=== PATIENT | male | born 1935 | race Caucasian/White ===

== ENCOUNTER 2023-10-21 14:28 | Inpatient (IN) | payer OTHER, SELFPAY ==
[2023-10-21] VITALS (19 sets, daily range): BP systolic 129–166; BP diastolic 59–109; BMI 26.1; BMI 25.7
--- NOTE | 2023-10-21 12:05 | EDRN ---
Dr. Wodoward in to see pt at this time.
--- NOTE | 2023-10-21 12:08 | ED.GENMED ---
History of Present Illness
General
Chief Complaint: Fall
Source: patient
Exam Limitations: none
Time Seen by Provider: 10/21/23 11:34
Nursing documentation reviewed up to this point in time: agreed with
Travel History
Have you had any contact with someone who has COVID-19?: No
Do you have any symptoms of coronavirus? Fever > 100 degrees, chills, cough, shortness of breath, sore throat, loss of taste or smell, muscle aches, or headache?: No
History of Present Illness
History of Present Illness:
88-year-old male prostate cancer renal insufficiency, cholesterolemia on Plavix, felt nauseous few days ago vomited's been unsteady when he walks for some time today had trouble putting his cane down fell onto his buttock and low back struck his
head not eating or drinking much recently, no fevers,
Past History
Past History
ED Past Medical History: Arrthythmia (Atrial fibrillation), CVA and HTN
ED Past Surgical History: Tonsilectomy and Other
Social History
Tobacco: Non-smoker
Alcohol: None
Drug: None
Personal:
Living: assisted living
Employment: Retired
Family History
Family History: Other
Review of Systems
Review of Systems
All Other Systems: Not applicable
Constitutional: Reports fatigue; Denies fever
EENT: Reports no symptoms
Respiratory: Reports no symptoms
ABD/GI: Reports nausea and vomiting (Few days ago)
: Reports no symptoms
Musculoskeletal: Reports back pain
Skin: Reports no symptoms
Neurological: Reports weakness
Endocrine: Reports no symptoms
Phy Exam
Physical Exam
Physical Exam:
Physical Exam
General: Pleasant chronically ill-appearing male normal mental status
Neck: Dry lips
Heart: Rate
Lungs: no acute respiratory distress. clear bilaterally
Abdomen: Not tender
Neuro: alert and oriented. Globally weak moves all extremities
Skin: no rash
Psychiatric: cooperative
Extremities: no edema.
Course
Orders/Labs/Results
Orders:
Orders
10/21/23 12:06
Cardiac Monitoring- Treatment ONCE
Urinalysis Reflex To Culture Urgent
0.9% Sodium Chloride 1000 ml [Nss] 1,000 ml IV BOLUS
Acetaminophen [Tylenol] 650 mg PO NOW STA
10/21/23 12:07
Electrocardiogram (*1) Urgent
Reason for Study: Other
Other Reason for Exam: trauma
CT Cervical Spine W/o Iv Contr Urgent
Comment:
Reason For Exam: fall
CT Head W/o Iv Contrast Urgent
Comment:
Reason For Exam: fall
EKG- Treatment ONCE
10/21/23 12:14
Lumbar Spine, 2 or 3 View [CR Lumbar Spine 2 Or 3 Views] Urgent
Comment:
Reason For Exam: fall
10/21/23 12:19
Complete Blood Count/With Diff Urgent
Comprehensive Metabolic Panel Urgent
10/21/23 13:03
CT Abd/pel Without Iv Or Oral Stat
Comment:
Reason For Exam: arf
10/21/23 13:07
Arellano Placement- Treatment ONCE
Reason for insertion: Acute Retention
10/21/23 13:15
Sterile Water For Inj [Sterile Water For Injection 1000 ml] 1,000 ml Sodium Bicarbonate 150 meq IV 200 mls/hr
Abnormal Lab Results
10/21/23
12:19
RBC 3.00 L 10^6/uL
(4.70-6.10)
Hgb 10.5 L g/dL
(13.0-18.0)
Hct 30.0 L %
(39.0-52.0)
MCV 100.0 H fL
(80.0-94.0)
MCH 35.0 H pg
(27.0-31.0)
Abs Immat Gran (auto) 0.1 H 10^3/uL
(0-0.05)
Absolute Neuts (auto) 9.3 H 10^3/uL
(1.4-6.5)
Absolute Lymphs (auto) 0.5 L 10^3/uL
(1.2-3.4)
Immature Gran % 0.8 H %
(0-0.5)
Neutrophils % 88.3 H %
(42.2-75.2)
Lymphocytes % 4.5 L %
(20.5-51.1)
Sodium 134 L mmol/L
(135-145)
Potassium 6.3 H* mmol/L
(3.5-5.1)
Carbon Dioxide 12 L* mmol/L
(22-30)
BUN 96 H mg/dl
(9-20)
Creatinine 9.5 H* mg/dL
(0.7-1.3)
Alkaline Phosphatase 158 H U/L
(38-126)
Total Protein 5.3 L g/dl
(6.3-8.2)
Albumin 2.9 L g/dl
(3.5-5.0)
10/21/23 12:19
10/21/23 12:19
Vital Signs
Initial and Last Documented VS:
Initial Vital Signs
Temp Pulse Resp BP Pulse Ox
97.5 F 71 16 150/82 99
10/21/23 11:26 10/21/23 11:26 10/21/23 11:26 10/21/23 11:26 10/21/23 11:26
Last Documented Vital Signs
Temp Pulse Resp BP Pulse Ox
97.5 F 65 16 155/82 99
10/21/23 11:26 10/21/23 13:00 10/21/23 13:00 10/21/23 13:00 10/21/23 13:00
MDM/Problems Addressed
Differential Diagnosis Includes:
Dehydration head or neck trauma arrhythmia UTI does take Farxiga
MDM/Problems Addressed:
Weakness fall
Chronic conditions affecting care:
Renal sufficiency prostate cancer
Acute Exacerbation and/or Progression of Chronic Illness:
No insufficiency prostate cancer
*Radiology
Radiology exam reviewed: preliminary read by ED provider
*Pulse Oximetry
Patient hypoxic: no
*Inspector Metal Can Interpretation
Rate: normal
Interpretation: normal
Heart Rate: 78
Rhythm: sinus
*Critical Care Note
Total Time (30-74mins, 75-104mins- exclusive of procedures): 30
Update Note
Update Note:
Update, labs noted prior records noted will check CT abdomen pelvis without contrast specialty consultations have been requested will require admission
ED Attending Note
-
Portions of this chart may have been created with voice recognition software.� Occasional wrong word or��sound alike� substitutions may have occurred due to the inherent limitations of voice recognition software.
Discharge Plan
Departure
Patient Disposition: Admit
Date of Disposition: 10/21/23
Time of Disposition: 13:12
Admit to: Telemetry
Presentation/result/management discussed w/ accepting MD/DO: Hospitalist
Patient with high blood pressure during this ER visit?: Yes
Condition: Serious
Discharge Problem:
Acute renal failure (ARF)
Prescriptions:
No Action
[id number] serr [Osteo Bi-Flex (5-Loxin)] 1 EACH tablet
2 ea PO DAILY
atorvastatin 40 mg Tablet
40 mg PO QPM
tamsulosin 0.4 mg Capsule
0.8 mg PO DAILY
PreserVision AREDS-2 250-90-40-1 mg Capsule
1 tab PO BID
Farxiga 10 mg Tablet
10 mg PO DAILY
clopidogrel 75 MG tablet
75 mg PO QPM
Referrals:
Kimberley Cantrell MD [Family Provider] -
Interventions
Interventions:
*Risk Screen - Suicide Last Done: 10/21/23 11:26
*General Assessment Last Done: 10/21/23 11:26
*Neglect/Abuse Screening Last Done: 10/21/23 11:26
ED- Fall Risk Assessment Last Done: 10/21/23 11:26
*ED COVID-19 Vaccine History Last Done: 10/21/23 11:26
ED-Musculoskeletal Assessment Last Done: 10/21/23 12:23
ED- Neurological Assessment Last Done: 10/21/23 12:23
ED-Skin Assessment Last Done: 10/21/23 12:23
[2023-10-21 12:39] LABS: % Basophils 0.1 % (0-2); % Eosinophils 0.2 % (0-6); % Immature Granulocytes 0.8 % (0-0.5); % Lymphocytes 4.5 % (20.5-51.1); % Monocytes 6.1 % (1.7-9.3); % Neutrophils 88.3 % (42.2-75.2); Absolute Immature Granulocytes 0.1 10^3/uL (0-0.05); Absolute Lymphocytes 0.5 10^3/uL (1.2-3.4); Absolute Monocytes 0.6 10^3/uL (0.1-0.6); Absolute Neutrophils 9.3 10^3/uL (1.4-6.5); Hemoglobin 10.5 g/dL (13.0-18.0); Mean Platelet Volume 9.7 fL (7.4-10.4); Nucleated Red Blood Cells % 0 % (-); Platelet Count 155 10^3/uL (130-400); Red Cell Dist. Width 13.3 % (11.5-14.5); White Blood Cell Count 10.5 10^3/uL (4.8-10.8)
[2023-10-21 13:03] LABS: ALT (SGPT) 20 U/L (0-50); AST (SGOT) 21 U/L (17-59); Albumin 2.9 g/dl (3.5-5.0); Alkaline Phosphatase 158 U/L (38-126); Blood Urea Nitrogen 96 mg/dl (9-20); Calcium 9.2 mg/dl (8.4-10.2); Carbon Dioxide 12 mmol/L (22-30); Chloride 104 mmol/L (98-107); Estimated Creatinine Clearance 6 ml/min; Glucose 85 mg/dl (70-99); Potassium 6.3 mmol/L (3.5-5.1); Sodium 134 mmol/L (135-145); Total Protein 5.3 g/dl (6.3-8.2); eGFR 4.86
--- NOTE | 2023-10-21 13:31 | W.CON.NEPH ---
Consultation
-
Date/Time Consultation Requested: 10/21/2023 1 PM
Date/Time Consultation Performed: 10/21/2023 1:30 PM
Requesting Provider: Dr. Woodward
Performing Provider: Dr. Conti
Reason for Consultation: Acute kidney injury
Medical History
-
Chief Complaint: Acute kidney injury
History of Present Illness:
88-year-old gentleman with known atrophic right kidney and thus a essential solitary left kidney with baseline creatinine around 1.7 up to 2.0 representing CKD stage IV. He has known history of calcium oxalate nephrolithiasis with his last
obstructive episode back in 2021. He has hyperlipidemia controlled on statin therapy. He remains on Farxiga for his CKD. He typically has lower blood pressures and given his solitary kidney status is not on RAAS inhibition. In the last few days
he has not been feeling well. He has lost his appetite. He became nauseous. He had no vomiting or diarrhea by his report. His oral intake was poor and his fluid intake was also poor. His urine output decreased. He became lightheaded this
morning and fell in the bathroom. He came to the emergency room he was noted to have a creatinine of greater than 9 with a potassium of 6.3
Past Medical History
1. Hypertension.
2. BPH.
3. Osteoarthritis.
4. Glaucoma.
5. History of stroke.
6. TIA.
7. CKD 4.
8. Nephrolithiasis.
9. Calcium oxalate.
10.Cholelithiasis.
11.Atrophic right kidney.
12.Tonsillectomy.
13.Hernia repair.
14.Cataract extraction.
15.Right ureteroscopy.
16.Laser lithotripsy.
Social History
Tobacco: Former Smoker
Alcohol: Occasional
Family History
no CKD
Family History: CAD
Allergies / Home Medications
Allergy/AdvReac Type Severity Reaction Status Date / Time
No Known Drug Allergies Allergy Unknown Verified 10/21/23 11:25
Medication Instructions Recorded Confirmed Type
glucosamine [id number] 2 ea PO DAILY Supplement 09/07/18 05/10/22 History
atul 1,500 mg-400 unit-100 mg
tablet (Osteo Bi-Flex (5-Loxin))
atorvastatin 40 mg tablet 40 mg PO QPM High cholesterol 04/22/22 05/10/22 History
clopidogrel 75 mg tablet 75 mg PO QPM Blood clot 04/22/22 05/10/22 History
prevention/tx
dapagliflozin propanediol 10 mg 10 mg PO DAILY Kidney Disease 04/22/22 05/10/22 History
tablet (Farxiga)
tamsulosin 0.4 mg capsule 0.8 mg PO DAILY Urinary issue 04/22/22 05/10/22 History
vit C 250 mg-vit E 90 mg-zinc 40 1 tab PO BID Supplement 04/22/22 05/10/22 History
mg-copper 1 [id number]
capsule (PreserVision AREDS-2)
Review of Systems
-
No chest pain or shortness of breath. Poor appetite, nausea. No vomiting or diarrhea however. Decreased urine output. Lightheadedness in the last day with near syncope this morning. The remainder of the complete review of systems was negative
Physical Exam
Vital Signs
Vital Signs
Temp Pulse Resp BP Pulse Ox
97.5 F 65 16 155/82 99
10/21/23 11:26 10/21/23 13:00 10/21/23 13:00 10/21/23 13:00 10/21/23 13:00
Lab Results
WBC 10.5 10^3/uL (4.8-10.8) 10/21/23 12:19
RBC 3.00 10^6/uL (4.70-6.10) L 10/21/23 12:19
Hgb 10.5 g/dL (13.0-18.0) L 10/21/23 12:19
Hct 30.0 % (39.0-52.0) L 10/21/23 12:19
Plt Count 155 10^3/uL (130-400) 10/21/23 12:19
Sodium 134 mmol/L (135-145) L 10/21/23 12:19
Potassium 6.3 mmol/L (3.5-5.1) H* 10/21/23 12:19
Chloride 104 mmol/L (98-107) 10/21/23 12:19
Carbon Dioxide 12 mmol/L (22-30) L* 10/21/23 12:19
BUN 96 mg/dl (9-20) H 10/21/23 12:19
Creatinine 9.5 mg/dL (0.7-1.3) H* 10/21/23 12:19
eGFR 4.86 10/21/23 12:19
Glucose 85 mg/dl (70-99) 10/21/23 12:19
Calcium 9.2 mg/dl (8.4-10.2) 10/21/23 12:19
Albumin 2.9 g/dl (3.5-5.0) L 10/21/23 12:19
Assessment/Plan
-
Assessment:�
-CKD4 (2.0)
-VI
-metabolic acidosis
-azotemia
-hyperkalemia
-hyponatremia
-HTN
-CaOx nephrolithiasis hx
-atrophic right kidney
-obstructive left uretral stone
Plan:�
treat K medically
serial BMP
IVF bolus then bicarb IVF
OR when feasible for ureteral stent
Data Reviewed
-
CT Scan: Report Reviewed by me (CT of the head and cervical spine on 10/21/2023 shows no acute disease, )
Medical Tests (Nuc Med, Echo etc): Image Personally Visualized and interpreted (EKG on 10/21/2023 by my reading shows normal sinus rhythm first-degree AV block and left axis deviation)
Labs: Labs Reviewed by me
Old Records: Reviewed (Creatinine on 06/14/2023 was 1.75)
--- NOTE | 2023-10-21 13:37 | HPS.HSE ---
Family Physician
-
Family Physician: Kimberley Cantrell MD
Chief Complaint
-
Fall
History of Present Illness
Patient with h/o CKD, atrophic right kidney, left kidney with prior obstructing stone s/p left ureteroscopic laser lithotripsy and exchange of left double-J ureteral stent in 2021, h/o TIA on plavix presenting to ED after a fall and complaint of
back pain. He felt nauseous few days ago vomited's been unsteady when he walks for some time today had trouble putting his cane down fell onto his buttock and low back struck his head. Reports reduced appetite not eating or drinking much recently.
Denies any hematuria or dysuria. Reports urinary frequency. Denies fevers. Denies OTC meds, NSAIDS. Denies any nephrotoxins. Non-anuric given recent episodes of uop however minimal po intake. Mechanical fall, denies LOC. Unclear if strike
head but did not hit head on the floor.
In ED hemodynamically stable and in no acute distress. ECG with 1st deg AVB (unchanged from prior save for abscence of PVCs). CBC unremarkable compared to prior. Chemistry notable for K of 6.3, Bicarb 12, BUN 96, CR 9.5. Temporizing measures,
urology and nephrology consults initiated in ED.
Medical History
Past Medical History
Past Medical History: Reports CVA and Renal Failure
Additional Past Medical History:
nephrolithiasis s/p stenting in the past
Past Surgical History: Reports Urological
Social History
Tobacco: Former Smoker
Alcohol: None
Drug: None
Personal:
Living: Alone
Employment: Retired
Family History
Family History: Not pertinent
Allergies / Home Medications
Allergies reflects when Allergies were last updated in [employer]
Home Medications with original date entered in [employer]
Allergy/Medication List:
Allergies
Allergy/AdvReac Type Severity Reaction Status Date / Time
No Known Drug Allergies Allergy Unknown Verified 10/21/23 11:25
Home Medications
glucosamine [id number] atul 1,500 mg-400 unit-100 mg tablet (Osteo Bi-Flex (5-Loxin)) 2 ea PO DAILY Supplement 09/07/18
atorvastatin 40 mg tablet 40 mg PO QPM High cholesterol 04/22/22
clopidogrel 75 mg tablet 75 mg PO QPM Blood clot prevention/tx 04/22/22
dapagliflozin propanediol 10 mg tablet (Farxiga) 10 mg PO DAILY Kidney Disease 04/22/22
tamsulosin 0.4 mg capsule 0.8 mg PO DAILY Urinary issue 04/22/22
vit C 250 mg-vit E 90 mg-zinc 40 mg-copper 1 [id number] capsule (PreserVision AREDS-2) 1 tab PO BID Supplement 04/22/22
acetaminophen 325 mg tablet (Tylenol) 650 mg PO Q4HPRN PRN mild pain 10/21/23
Review of Systems
-
History Source: Patient and Family
Constitutional: Reports Fatigue
EENT: Reports No Symptoms
Respiratory: Reports No Symptoms
Cardiac: Reports No Symptoms
Abdomen/GI: Reports Nausea and Vomiting
: Reports Frequency and Flank Pain
Musculoskeletal: Reports Joint Pain
Skin: Reports No Symptoms
Neurological: Reports No Symptoms
Endocrine: Reports No Symptoms
Hematologic/Lymphatic: Reports No Symptoms
Psych: Reports No Symptoms
Physical Exam
Vital Signs
Vital Signs
Temp Pulse Resp BP Pulse Ox
97.5 F 65 16 155/82 99
10/21/23 11:26 10/21/23 13:00 10/21/23 13:00 10/21/23 13:00 10/21/23 13:00
Physical Exam
General: Poor Appetite
HEENT: NormoCephalic, Anicteric and PERRLA
Respiratory: Clear
Cardiac: S1/S2 and Regular Rhythm
Breast: Deferred by me
GI: Soft, Non Tender, Non Distended and Normal Bowel Sounds
Rectal: Deferred by Provider
Genito-urinary: Deferred by me
Musculoskeletal: No Clubbing, No Cyanosis and No Edema
Skin: Warm
Neuro: AO x 3
Hematologic/Lymphatic: No Lymphadenopathy
Psych: Calm
Laboratory Results
-
10/21/23 12:19
10/21/23 12:19
Laboratory Results
Total Bilirubin 1.0 mg/dl (0.2-1.3) 10/21/23 12:19
AST 21 U/L (17-59) 10/21/23 12:19
ALT 20 U/L (0-50) 10/21/23 12:19
Alkaline Phosphatase 158 U/L (38-126) H 10/21/23 12:19
Data Reviewed
-
Diagnostic Radiology: Image Personally Visualized and interpreted and Report Reviewed by me
CT Scan: Report Reviewed by me
Medical Tests (Nuc Med, Echo, EKG etc): Image Personally Visualized and interpreted
Lab Data: Labs Reviewed by me
Old Records: Reviewed
Impression/Plan
-
IMPRESSION:
88 y.o male with history of atrophic right kidney and left uronephrolithiasis complicaed by severe VI in the past, CKD with baseline cr around 2 presenting with a few days of nausea, vomiting, weakness, fall and backpain. Endorsed urinary
frequency without dysuria, hematuria or incontinence. No fevers or chills. Found to have recurrent left obstructive urolithiasis with hydronephrosis. Severe VI with hyperkalemia, acidemia and BUN/Cr of 96/9.5. Non-anuric.
PLAN:
VI - 2/2 to obstructing stone. Urology consulted with plan for stent placement if possible otherwise nephrostomy tube placement.
- admit to IMU
- npo for now
- hold plavix
- going to OR where urinary catheter and stent will be placed
- strict i/os
- hypovolemic, given acidemia will continue with bicarbonate containing fluids
- holding farxiga, atovastatin
- continue tamsulosin
- repeat labs q 8 hours and plan for possible HD in am.
Hyperkalemia - 2/2 to VI. K 6.3, no ECG changes. Temporized with calcium gluconate, insulin/dextrose in ED.
- continue daily lokelma
- IV bicarbonate
- low K diet starting in am if no additional procedures pending
- need HD if hyperkalemic despite measures but do not forsee immediate need
- nephrology consulted
Acidemia - 2/2 VI
- IV bicarb 150meq at 200ml/hr for now
DVT PPX - heparin sq
Patient is FULL CODE
--- NOTE | 2023-10-21 13:41 | EDRN ---
Dr. Conti in room w/pt at this time.
--- NOTE | 2023-10-21 13:45 | EDRN ---
Dr. Harper in room w/ pt at this time.
[2023-10-21] MEDS: DEXTROSE 50% SYRINGE 25 GRAMS IV (13:49)
[2023-10-21] MEDS: NOVOLIN R 5 UNITS IV (13:53)
[2023-10-21] MEDS: SODIUM BICARBONATE 50 MEQ IV (13:56)
[2023-10-21] MEDS: NSS 1000 IV (13:58)
--- NOTE | 2023-10-21 14:00 | EDRN ---
Dr. Phillips in room w/pt.
[2023-10-21] MEDS: LOKELMA 10 GRAM PO ×2 (14:05→19:22)
--- NOTE | 2023-10-21 14:05 | EDRN ---
Dr. Phillips said not to catheterize pt at this time so mendosa catheter is presently on hold.
--- NOTE | 2023-10-21 14:09 | CON.MD ---
Consultation - Medical
-
see dictated note
pt with prostate ca on med therapy
s/p right nephrectomy
hx of stones
required stent/ureteroscopy for obstructing stone with anuria and renal failure in 2021
now with no urine output/feeling weak
ARF and ct showing large mid ureteral stone
reviewed with nephrology/med team and anesthesia
if K can be stabilized- to OR for stent
use of plavix precludes per at this time
high risk nature of procedure including inability to place stent and hematuria reviewed with pt and son and daughter (by phone)
to OR when electrolytes stabilized
[2023-10-21] MEDS: CALCIUM GLUCONATE 100 IV (14:13)
[2023-10-21 14:36] LABS: Creatine Phosphokinase 75 U/L (55-170)
[2023-10-21] MEDS: SODIUM BICARBONATE 1150 MEQ IV ×2 (15:02→20:55)
[2023-10-21 15:08] LABS: Blood Urea Nitrogen 93 mg/dl (9-20); Calcium 8.7 mg/dl (8.4-10.2); Carbon Dioxide 13 mmol/L (22-30); Chloride 107 mmol/L (98-107); Estimated Creatinine Clearance 6 ml/min; Glucose 127 mg/dl (70-99); Potassium 5.9 mmol/L (3.5-5.1); Sodium 132 mmol/L (135-145); eGFR 4.92
--- NOTE | 2023-10-21 15:53 | EDRN ---
Report given to Emi RICCI in OR. Pt to go to OR at this time.
[2023-10-21] MEDS: ANCEF 10 IV (16:25)
--- NOTE | 2023-10-21 16:50 | W.IMMPOSTOP ---
Surgical Immed Post Op Note
-
Primary Surgeon:
magui
Assisting Surgeon:
Pre-op Diagnosis:
left ureteral stone/obstruction of solitary kindey, arf
Post-op Diagnosis:
same
Procedure Performed:
cysto/left retrograde, left ureteral stent
Anesthesia Type:
gen
Specimen / Cultures:
none
Estimated Blood Loss:
2cc
Complications:
none
Operative Findings:
left ureteral stent placed
[address] mendosa placed- no cbi at this time
to pacu then IMU
[2023-10-21 17:28] LABS: Urine Albumin 1+ (Neg - Trace); Urine Bilirubin Negative (Negative); Urine Character Slightly Cloudy (Clear); Urine Color Red; Urine Glucose 1+ (Negative); Urine Ketone Trace (Negative); Urine Leukocyte 1+ (Negative); Urine Nitrite Negative (Negative); Urine Occult Blood 4+ (Negative); Urine Specific Gravity 1.005 (<1.030); Urine Urobilinogen Negative (Neg - 1+)
[2023-10-21 17:45] LABS: Urine Red Blood Cell >100 /HPF (0-2); Urine Squamous Cell 0-2 /LPF (Few)
--- NOTE | 2023-10-21 20:00 | PTCARENOTE ---
Pt received at beginning of shift from PACU s/p left ureteral stent placement with mendosa. AAOx3. Drowsy but arousable. Son at bedside. Denies pain or discomfort. Mendosa draining slightly pink colored urine. IVF's infusing as ordered. VSS. Afebrile.
HR 40's-70's. SB/SR on CM. Able to answer admission questions. SCD's on and working. Wounds as documented. Rest of assessment as documented. Maintained on Q2hr turns. Oriented to room and surroundings. Call kincaid within reach. Will continue to
monitor.
[2023-10-21 20:39] LABS: Blood Urea Nitrogen 89 mg/dl (9-20); Carbon Dioxide 14 mmol/L (22-30); Chloride 105 mmol/L (98-107); Estimated Creatinine Clearance 6 ml/min; Glucose 86 mg/dl (70-99); Potassium 5.6 mmol/L (3.5-5.1); Sodium 135 mmol/L (135-145); eGFR 5.11
[2023-10-21] MEDS: TYLENOL 650 MG PO (20:46)
--- NOTE | 2023-10-21 21:30 | PTCARENOTE ---
Daughter Destinee called floor to informed this RN that pt's had tonight. Asking for guidance as to what she should do. Agreement between this RN and daughter Destinee that she would come up and we would sit with pt together as she told
him. Destinee arrived to floor and when she entered pt's room pt asked her 'how is mother doing?' Destinee explained to pt that she had tonight. Emotional support provided to both Destinee and pt. Pt was calm and was speaking with his daughter so
this RN left room so as to offer them privacy. Both daughter and pt appreciative of care and compassion offered to both. Daughter left for the night and pt stated he was going to try to sleep. Will continue to monitor.
[2023-10-22] VITALS (13 sets, daily range): BP systolic 104–156; BP diastolic 43–96; PULSE 105; O2SAT 97; BMI 25.7
[2023-10-22] MEDS: SODIUM BICARBONATE 1150 MEQ IV ×4 (01:51→18:27)
[2023-10-22] MEDS: CHLORASEPTIC/SORE THROAT SPRAY 1 SPRAY PO ×3 (01:52→06:09)
--- NOTE | 2023-10-22 02:13 | PTCARENOTE ---
Pt c/o throat pain. Received Tylenol earlier with some relief. Requesting different med. 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 Pt received spray and had immediate relief with throat pain. Currently resting comfortably.
[2023-10-22 04:03] LABS: Hematocrit 31.5 % (39.0-52.0); Hemoglobin 11.1 g/dL (13.0-18.0); Mean Corp Hgb Conc. 35.2 g/dL (33.0-37.0); Mean Corpuscular Hgb 34.8 pg (27.0-31.0); Mean Corpuscular Volume 98.7 fL (80.0-94.0); Mean Platelet Volume 9.6 fL (7.4-10.4); Platelet Count 180 10^3/uL (130-400); Red Blood Cell Count 3.19 10^6/uL (4.70-6.10); Red Cell Dist. Width 13.4 % (11.5-14.5); White Blood Cell Count 7.8 10^3/uL (4.8-10.8)
[2023-10-22 04:05] LABS: INR 1.14; PT 14.4 Sec (11.4-14.6)
[2023-10-22 04:06] LABS: APTT 39.3 Sec (23.4-35.0)
[2023-10-22 04:17] LABS: Blood Urea Nitrogen 92 mg/dl (9-20); Calcium 8.9 mg/dl (8.4-10.2); Carbon Dioxide 16 mmol/L (22-30); Chloride 99 mmol/L (98-107); Estimated Creatinine Clearance 6 ml/min; Glucose 86 mg/dl (70-99); Magnesium 2.3 mg/dl (1.6-2.3); Potassium 5.5 mmol/L (3.5-5.1); Sodium 138 mmol/L (135-145); eGFR 5.63
--- NOTE | 2023-10-22 04:25 | PTCARENOTE ---
Pt obviously unable to sleep overnight given the news his last night. Emotional at times. States 'I just have things on my mind.' He remains very pleasant. This am he is showing signs of forgetfulness with visual hallucinations. He
stated he see's 'videos of his family on the TV.' The TV is off. There are reflections on the TV screen of the VS monitor with lights off. However he says what he sees are videos of his family. VSS. Afebrile. SR on CM rate 70's. Total UO for shift
2250ml of slighly pink urine, not clots noted. Pt continues to deny pain or discomfort. Call kincaid remains within reach. Will continue to monitor.
[2023-10-22] MEDS: LOKELMA 10 GRAM PO ×3 (06:08→18:28)
--- NOTE | 2023-10-22 07:08 | W.PN.URO.CBU ---
Today's Communication / Plan
-
excellent UO but unfortunately not much improvement in cr level yet
continue mendosa
would hold plavix, asa is ok
await ucx
will follow
Assessment / Plan
-
hx of prostate cancer
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
ARF
s/p left ureteral stent
Diagnosis
-
Date of Service: October 22, 2023
-
Patient Diagnosis:
stone obstructing solitary kidney s/p stent /
ARF
prostate cancer
Subjective
-
pt with some confusion
urine clear- excellent output
not much improvement in cr level
Objective
-
Vital Signs
Temp Pulse Resp BP Pulse Ox
98.1 F 106 27 135/85 98
10/22/23 03:26 10/22/23 06:00 10/22/23 06:00 10/22/23 06:00 10/22/23 06:00
Intake and Output
10/21/23 10/22/23 10/23/23
06:59 06:59 06:59
Intake Total 2725 / 2725
Output Total 2800 / 2800
Balance -75 / -75
Intake:
Oral fluids 100 / 100
IV fluids (Total) 2625 / 2625
normosol 50 / 50
sterile water with sodiumbicarb 175 / 175
Output:
Urine, Mendosa 2800 / 2800
Laboratory Results
10/22/23 03:36
10/22/23 03:36
Review of Systems
-
Constitutional: Fatigue
Respiratory: No Symptoms
Cardiac: No Symptoms
Abdomen/GI: No Symptoms
Physical Exam
-
General - ill appearing, no acute distress
Abdomen - soft, non-tender
Genitalia - mendosa in place
[2023-10-22] MEDS: FLOMAX 0.800000000000000044 MG PO (08:02)
--- NOTE | 2023-10-22 09:32 | W.PN.HOSP.TC ---
Today's Communication/Plan
-
see outlined plan
Assessment / Plan
Assessment / Plan
Assessment:
VI on CKD stage 4
Acute metabolic acidosis
Acute Hyperkalemia
Acute hyponatremia
Hx of solitary kidney
- related to obstructive L ureteral stone s/p stenting 10/20. Continue Arellano and monitor I/Os per Urology. Follow urine culture.
- K+ was treated medically in ER with Calcium gluconate, insulin/dextrose; repeat is 5.5. continue low K diet.
- continue bicarbonate IVF per Nephrology
- continue Flomax
- hold Farxiga
Essential HTN
HLD - hold statin
Social: patients 10/21/23, her is tentatively planned 10/29.
DVT ppx: SC heparin (noted on Plavix for clot prevention at home, no record of ASCVD)
Code: Full
Anticipated Discharge: > 48 hours
Subjective/Interval History
-
Date of Service: October 22, 2023
urine output recorded as 2800 cc
feels well, no complaints
Cr at 8.4
Objective Data
-
Labs:
Laboratory Results
10/22/23
03:36
WBC 7.8
Hgb 11.1 L
Hct 31.5 L
Plt Count 180
PT 14.4
INR 1.14
APTT 39.3 H
Sodium 138
Potassium 5.5 H
Chloride 99
Carbon Dioxide 16 L
BUN 92 H
Creatinine 8.4 H*
Glucose 86
Calcium 8.9
Vital Signs:
Vital Signs
Temp Pulse Resp BP Pulse Ox
98.5 F 106 27 135/85 98
10/22/23 07:50 10/22/23 06:00 10/22/23 06:00 10/22/23 06:00 10/22/23 06:00
I&O
10/21/23 10/22/23 10/23/23
06:59 06:59 06:59
Intake Total 2725 / 2725
Output Total 2800 / 2800
Balance -75 / -75
Physical Exam
-
General: No Apparent Distress
HEENT: Normocephalic and Atraumatic
Respiratory: Negative Wheezes or Rales
Cardiac: Regular Rhythm and S1/S2
GI: Soft and Nontender
Genito-urinary: No Costovertebral Tender and Arellano
Musculoskeletal: No Edema
Psych: Calm
Data Reviewed
-
Total Time Spent with Patient (in minutes): 45
Labs: Labs Reviewed by me
[2023-10-22 11:19] LABS: Urine Albumin Trace (Neg - Trace); Urine Bilirubin Negative (Negative); Urine Character Slightly Cloudy (Clear); Urine Color Yellow; Urine Glucose Trace (Negative); Urine Ketone 3+ (Negative); Urine Leukocyte 1+ (Negative); Urine Nitrite Negative (Negative); Urine Occult Blood 4+ (Negative); Urine Urobilinogen Negative (Neg - 1+)
--- NOTE | 2023-10-22 11:20 | W.PN.NEPH.PH ---
Today's Communication / Plan
-
IVF
Assessment/Plan
-
Assessment:�
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
-VI
-metabolic acidosis
-azotemia
-hyperkalemia
-hyponatremia
-HTN
-CaOx nephrolithiasis hx
-atrophic right kidney
-obstructive left uretral stone
Plan:�
lokelma today still
serial BMP
IVF with bicarb
I think he will escape dialysis
-
-
Date of Service: October 22, 2023
CC / HPI / ROS
-
Chief Complaint:
VI
History of Present Illness:
VI/Cr down to 8.4
K down to 5.5
acidosis improving 16
s/p left ureteral stent
Review of Systems:
no CP/SOB
nonoliguric
Labs
-
Labs:
WBC 7.8 10^3/uL (4.8-10.8) 10/22/23 03:36
RBC 3.19 10^6/uL (4.70-6.10) L 10/22/23 03:36
Hgb 11.1 g/dL (13.0-18.0) L 10/22/23 03:36
Hct 31.5 % (39.0-52.0) L 10/22/23 03:36
Plt Count 180 10^3/uL (130-400) 10/22/23 03:36
Sodium 138 mmol/L (135-145) 10/22/23 03:36
Potassium 5.5 mmol/L (3.5-5.1) H 10/22/23 03:36
Chloride 99 mmol/L (98-107) 10/22/23 03:36
Carbon Dioxide 16 mmol/L (22-30) L 10/22/23 03:36
BUN 92 mg/dl (9-20) H 10/22/23 03:36
Creatinine 8.4 mg/dL (0.7-1.3) H* 10/22/23 03:36
eGFR 5.63 10/22/23 03:36
Glucose 86 mg/dl (70-99) 10/22/23 03:36
Calcium 8.9 mg/dl (8.4-10.2) 10/22/23 03:36
Albumin 2.9 g/dl (3.5-5.0) L 10/21/23 12:19
Physical Exam
-
Vital Signs:
Vital Signs
Temp Pulse Resp BP Pulse Ox
98.5 F 106 27 135/85 98
10/22/23 07:50 10/22/23 06:00 10/22/23 06:00 10/22/23 06:00 10/22/23 06:00
Cardiovascular:: Regular rate and rhythm
Respiratory:: Bilateral: Coarse
Lung Excursion:: Normal
Abdomen:: Nontender and Soft
Bowel Sounds:: Normal
Extremity Edema:: None: Bilateral:
[2023-10-22 11:58] LABS: Urine Bacteria Few (Negative); Urine Red Blood Cell >100 /HPF (0-2); Urine Squamous Cell 0-2 /LPF (Few)
--- NOTE | 2023-10-22 13:06 | CM ---
manager copy reviewed patient's chart and met with patient, patient resides at '[facility]' at [facility], patient was independent with adl's and ambulation. Patient has a cane that he rarely uses but does not have a walker, the walkers in patient's
home belong to his spouse who recently , per patient his the day he was admitted. Patient drives. Patient was the caregiver for his . Patient has had a recent fall and recommendation are for skilled placement.
Skilled options reviewed and patient has selected [facility], but patient is reluctant to agree to skilled placement because he wants to make final burial arrangements for his spouse.
Pharmacy: [facility]
Plan; Patient would prefer to return to home and make final arrangements for spouse's , but did agree to a referral to [facility], referral sent to [facility].
[2023-10-22 15:53] LABS: Blood Urea Nitrogen 94 mg/dl (9-20); Calcium 8.2 mg/dl (8.4-10.2); Carbon Dioxide 27 mmol/L (22-30); Chloride 91 mmol/L (98-107); Estimated Creatinine Clearance 7 ml/min; Glucose 113 mg/dl (70-99); Sodium 135 mmol/L (135-145); eGFR 6.56
[2023-10-22] MEDS: TYLENOL 650 MG PO (20:55)
--- NOTE | 2023-10-22 21:18 | PTCARENOTE ---
AAOx3, NSR, VSS. Pt c/o mild headache, which he attributes to lack of sleep last night, PRN tylenol provided per OCT. SaO2 noted to be 88-89% on RA. Pt placed on 2L NC. Upon falling asleep, pt noted to desat into 70s with prompt return to 89%. O2
titrated to 6L NC with improvement to 95%. Periods of desat to 80s continue, but with prompt return to 95%. Pt mouth-breathing during sleep. RT Mckayla notified. Bed alarm in place for patient safety. Call kincaid placed within reach
[2023-10-23] VITALS (15 sets, daily range): BP systolic 126–169; BP diastolic 77–98; PULSE 74; O2SAT 93; BMI 25.9
[2023-10-23] MEDS: SODIUM BICARBONATE 1150 MEQ IV ×2 (00:32→06:22)
[2023-10-23 05:17] LABS: Hematocrit 28.9 % (39.0-52.0); Hemoglobin 10.1 g/dL (13.0-18.0); Mean Corp Hgb Conc. 34.9 g/dL (33.0-37.0); Mean Corpuscular Hgb 34.5 pg (27.0-31.0); Mean Corpuscular Volume 98.6 fL (80.0-94.0); Mean Platelet Volume 9.2 fL (7.4-10.4); Platelet Count 181 10^3/uL (130-400); Red Blood Cell Count 2.93 10^6/uL (4.70-6.10); Red Cell Dist. Width 13.5 % (11.5-14.5); White Blood Cell Count 8.3 10^3/uL (4.8-10.8)
[2023-10-23 05:54] LABS: Blood Urea Nitrogen 89 mg/dl (9-20); Calcium 7.6 mg/dl (8.4-10.2); Carbon Dioxide 36 mmol/L (22-30); Chloride 90 mmol/L (98-107); Estimated Creatinine Clearance 8 ml/min; Glucose 102 mg/dl (70-99); Potassium 3.4 mmol/L (3.5-5.1); Sodium 134 mmol/L (135-145); eGFR 7.39
--- NOTE | 2023-10-23 06:15 | W.PN.URO.CBU ---
Today's Communication / Plan
-
continue mendosa and stent- f/u ucx
Assessment / Plan
-
hx of prostate cancer
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
ARF
s/p left ureteral stent
slow improvement in cr
continue stent and mendosa
f/u ucx
asa ok- would hold plavix for now
continue mendosa until renal function normalized
will follow
Diagnosis
-
Date of Service: October 23, 2023
-
Patient Diagnosis:
stone obstructing solitary kidney s/p stent 3/
ARF
prostate cancer
Subjective
-
pt remains in ICU
excellent UO- clear
cr slowly declining
ucx pending
Objective
-
Vital Signs
Temp Pulse Resp BP Pulse Ox
98.6 F 79 15 134/85 93
10/22/23 22:42 10/23/23 02:00 10/23/23 02:00 10/23/23 02:00 10/23/23 02:00
Intake and Output
10/21/23 10/22/23 10/23/23
06:59 06:59 06:59
Intake Total 2725 / 2725 600 / 600
Output Total 2800 / 2800 4450 / 4450
Balance -75 / -75 -3850 / -3850
Intake:
Oral fluids 100 / 100 600 / 600
IV fluids (Total) 2625 / 2625
normosol 50 / 50
sterile water with sodiumbicarb 175 / 175
Output:
Urine, Mendosa 2800 / 2800 4450 / 4450
Laboratory Results
10/23/23 04:53
10/23/23 04:53
Physical Exam
-
General - no acute distress
Abdomen - soft, non-tender
Genitalia - mendosa in place
[2023-10-23] MEDS: LOKELMA 10 GRAM PO (06:23)
--- NOTE | 2023-10-23 06:33 | W.PN.HOSP.TC ---
Addendum entered and electronically signed by Dawood Latif MD 10/23/23 12:23:
Addendum
Patient has nausea. Unable to tolerate oral potassium. Will DC it and give IV potassium replacement therapy.
Zofran did not help nausea. Will give one-time dose of Compazine.
End
Original Note:
Today's Communication/Plan
-
.
Assessment / Plan
Assessment / Plan
Physical Exam
-
General: No Apparent Distress
HEENT: Normocephalic and Atraumatic
Respiratory: Negative Wheezes or Rales
Cardiac: Regular Rhythm
GI: Soft and Nontender
Genito-urinary: No Costovertebral Tender
Musculoskeletal: No Edema
Neuro: AO x 3, followed commands.
Psych: Calm, no agitation.
Assessment:
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
Acute metabolic acidosis
Creatinine around 6.7
No flank pain
No hematuria
IVF with bicarb
Appreciate nephrology help
# Acute Hyperkalemia
s/p Lokelma
Resolved
# Hypokalemia, replace, recheck
# Acute hyponatremia
# Hx of solitary kidney
- related to obstructive L ureteral stone s/p stenting 10/20. Continue Arellano and monitor I/Os per Urology. Follow urine culture.
- continue Flomax
- hold Farxiga
Hold Plavix.
c/w Arellano
# Gait dysfunction
Order PT/OT
# Essential HTN
AM BP 141/93
Add PRN oral hydralazine
#HLD - hold statin
Social: patients 10/21/23, her is tentatively planned 10/29.
DVT ppx: SC heparin (noted on Plavix for clot prevention at home, no record of ASCVD)
Code: Full
Total time spent to see the patient, examine the patient on the floor, review data and lab results, discuss treatment plan with patient, nursing staff around 55 minutes
Anticipated Discharge: > 48 hours
Subjective/Interval History
-
Date of Service: October 23, 2023
No chest pain
No abd pain
No sob
No fevers
Objective Data
-
Labs:
Laboratory Results
10/23/23
04:53
WBC 8.3
Hgb 10.1 L
Hct 28.9 L
Plt Count 181
Sodium 134 L
Potassium 3.4 L
Chloride 90 L
Carbon Dioxide 36 H
BUN 89 H
Creatinine 6.7 H*
Glucose 102 H
Calcium 7.6 L
Vital Signs:
Vital Signs
Temp Pulse Resp BP Pulse Ox
98.6 F 79 15 134/85 93
10/22/23 22:42 10/23/23 02:00 10/23/23 02:00 10/23/23 02:00 10/23/23 02:00
I&O
10/21/23 10/22/23 10/23/23
06:59 06:59 06:59
Intake Total 2725 / 2725 2600 / 2600
Output Total 2800 / 2800 4950 / 4950
Balance -75 / -75 -2350 / -2350
[2023-10-23] MEDS: FLOMAX 0.800000000000000044 MG PO (09:12)
[2023-10-23] MEDS: TYLENOL 650 MG PO (09:13)
[2023-10-23] MEDS: ZOFRAN 4 MG IV (09:47)
[2023-10-23] MEDS: APRESOLINE 5 MG PO (09:48)
[2023-10-23] MEDS: SODIUM BICARBONATE IV (11:51)
--- NOTE | 2023-10-23 12:10 | CM ---
CM reviewed chart, ADC >48 hours and pt in IMU
Very lengthy meeting with pt's dtr/Destinee per her request in family meeting room
Pt's spouse recently passed a few days prior- dtr did not have great experience with her mother's care at
Offered info for formal complaint and risk- she declined
Emotional support provided
Discharge planning discussed in depth
SNF remains recommended; however, pt would like to attend his spouse's
Discussed private duty services and potential plan for pt to return home with 24/7 care
Scope of VN services also discussed
Dtr has already reached out to [facility]
She will continue to look into private duty services
At this time, dc dispo is TBD
[facility] has offered bed pending availability
Pt will require auth for SNF placement
Plan to follow up with daughter in dispo planning
Discharge Disposition- home with 24/7 care vs SNF
[2023-10-23] MEDS: COMPAZINE 5 MG IV (13:40)
[2023-10-23] MEDS: KCL 160 MEQ IV (13:41)
--- NOTE | 2023-10-23 15:11 | W.PN.NEPH.PH ---
Today's Communication / Plan
-
- 1/2 NS ordered at 100cc/hr
Assessment/Plan
-
Assessment:�
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
-VI
-metabolic acidosis
-azotemia
-hyperkalemia
-hyponatremia
-HTN
-CaOx nephrolithiasis hx
-atrophic right kidney
-obstructive left uretral stone
Plan:�
no more lokelma. please give gentle K repletion
Cr downtrending to 6.7 (peak 9.5), bl likely close to 2
stop sodium bicarb, initiate 1/2NS at 100cc/hr
UOP at 4.9L, will initiate fluids as above
continue with serial BMP
no urgent indications for dialysis at this time. remain optimistic that patient can avoid HD at this time
-
-
Date of Service: October 23, 2023
CC / HPI / ROS
-
Chief Complaint:
VI
History of Present Illness:
VI/Cr down to 6.7
K down to 3.4
now with some alkalosis
s/p left ureteral stent
Review of Systems:
no CP/SOB
nonoliguric
Labs
-
Labs:
WBC 8.3 10^3/uL (4.8-10.8) 10/23/23 04:53
RBC 2.93 10^6/uL (4.70-6.10) L 10/23/23 04:53
Hgb 10.1 g/dL (13.0-18.0) L 10/23/23 04:53
Hct 28.9 % (39.0-52.0) L 10/23/23 04:53
Plt Count 181 10^3/uL (130-400) 10/23/23 04:53
Sodium 134 mmol/L (135-145) L 10/23/23 04:53
Potassium 3.4 mmol/L (3.5-5.1) L 10/23/23 04:53
Chloride 90 mmol/L (98-107) L 10/23/23 04:53
Carbon Dioxide 36 mmol/L (22-30) H 10/23/23 04:53
BUN 89 mg/dl (9-20) H 10/23/23 04:53
Creatinine 6.7 mg/dL (0.7-1.3) H* 10/23/23 04:53
eGFR 7.39 10/23/23 04:53
Glucose 102 mg/dl (70-99) H 10/23/23 04:53
Calcium 7.6 mg/dl (8.4-10.2) L 10/23/23 04:53
Albumin 2.9 g/dl (3.5-5.0) L 10/21/23 12:19
Physical Exam
-
Vital Signs:
Vital Signs
Temp Pulse Resp BP Pulse Ox
97.7 F 96 20 126/98 96
10/23/23 12:00 10/23/23 14:00 10/23/23 14:00 10/23/23 14:00 10/23/23 14:00
Cardiovascular:: Regular rate and rhythm
Respiratory:: Bilateral: CTA
Lung Excursion:: Normal
Abdomen:: Nontender and Soft
Bowel Sounds:: Normal
Extremity Edema:: None: Bilateral:
Arellano Catheter: Yes
--- NOTE | 2023-10-23 15:54 | PTCARENOTE ---
Pt presents as assessed. Aox3. Tearful at times regarding recent passing of . Emotional support provided. Offered pastoral care services, pt politely declined. Assessment and care as documented. Pt OOB to chair for a short time with PT. Assisted
back into bed. Q2T maintained. Able to make needs known, call kincaid within reach.
[2023-10-23] MEDS: 0.45%NACL 1000 IV (17:11)
[2023-10-23] MEDS: HEPARIN 5000 UNITS SC (20:40)
[2023-10-23] MEDS: MELATONIN 3 MG PO (22:21)
[2023-10-24] VITALS (14 sets, daily range): BP systolic 126–155; BP diastolic 79–101; BMI 24.9
[2023-10-24] MEDS: 0.45%NACL 1000 IV ×3 (03:09→20:02)
--- NOTE | 2023-10-24 06:15 | W.PN.HOSP.TC ---
Today's Communication/Plan
-
.
Assessment / Plan
Assessment / Plan
Physical Exam
-
General: No Apparent Distress
HEENT: Normocephalic and Atraumatic
Respiratory: Negative Wheezes or Rales
Cardiac: Regular Rhythm
GI: Soft and Nontender
Genito-urinary: No Costovertebral Tender
Musculoskeletal: No Edema
Neuro: AO x 3, followed commands.
Psych: Calm, no agitation.
Assessment:
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
Acute metabolic acidosis
Creatinine around 4.5
No flank pain
No hematuria
IVF with bicarb
Appreciate nephrology help
# Acute Hyperkalemia
s/p Lokelma
Resolved
# nausea
Zofran did not help
he feels better today likely related to metabolic abnormality
Compazine is added
# Hypokalemia, replaced, recheck at 3.6
# Acute hyponatremia
Better. Na at 138
# Hx of solitary kidney
- related to obstructive L ureteral stone s/p stenting 10/20. Continue Arellano and monitor I/Os per Urology. Follow urine culture.
- continue Flomax
- hold Farxiga
Hold Plavix.
c/w Arellano
# Gait dysfunction
Order PT/OT
# Essential HTN
AM BP 126/79
Add PRN oral hydralazine
#HLD - hold statin
Social: patients 10/21/23, her is tentatively planned 10/29.
DVT ppx: SC heparin (noted on Plavix for clot prevention at home, no record of ASCVD)
Code: Full
Total time spent to see the patient, examine the patient on the floor, review data and lab results, discuss treatment plan with patient, nursing staff around 55 minutes
Anticipated Discharge: > 48 hours
Subjective/Interval History
-
Date of Service: October 24, 2023
No chest pain, no sob
No nausea
Objective Data
-
Labs:
Laboratory Results
10/24/23
05:45
Sodium Pending
Potassium Pending
Chloride Pending
Carbon Dioxide Pending
BUN Pending
Creatinine Pending
Glucose Pending
Calcium Pending
Vital Signs:
Vital Signs
Temp Pulse Resp BP Pulse Ox
97.7 F 92 25 126/79 97
10/24/23 04:22 10/24/23 00:00 10/24/23 00:00 10/24/23 00:00 10/24/23 00:00
I&O
10/22/23 10/23/23 10/24/23
06:59 06:59 06:59
Intake Total 2725 / 2725 3000 / 3000 660 / 660
Output Total 2800 / 2800 4950 / 4950 5200 / 5200
Balance -75 / -75 -1950 / -1950 -4540 / -4540
[2023-10-24 07:18] LABS: Blood Urea Nitrogen 75 mg/dl (9-20); Calcium 8.2 mg/dl (8.4-10.2); Carbon Dioxide 32 mmol/L (22-30); Chloride 93 mmol/L (98-107); Estimated Creatinine Clearance 12 ml/min; Glucose 73 mg/dl (70-99); Potassium 3.6 mmol/L (3.5-5.1); Sodium 138 mmol/L (135-145); eGFR 11.91
[2023-10-24] MEDS: FLOMAX 0.800000000000000044 MG PO (09:03)
[2023-10-24] MEDS: HEPARIN 5000 UNITS SC ×2 (09:05→20:45)
--- NOTE | 2023-10-24 09:14 | W.PN.URO.CBU ---
Today's Communication / Plan
-
slow improvement
contiue mendosa and stent
Assessment / Plan
-
hx of prostate cancer
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
ARF
s/p left ureteral stent
slow improvement in cr
continue stent and mendosa
ucx negative
asa ok- would hold plavix for now
continue mendosa until renal function normalized- then can remove for TOV- have started flomax to facilitiate
will follow
Diagnosis
-
Date of Service: October 24, 2023
-
Patient Diagnosis:
stone obstructing solitary kidney s/p stent 3/2
ARF
prostate cancer
Subjective
-
pt stable
urine clear- vigorous output
cr slowly declining
ucx negative
Objective
-
Vital Signs
Temp Pulse Resp BP Pulse Ox
97.7 F 92 25 126/79 85
10/24/23 04:22 10/24/23 00:00 10/24/23 00:00 10/24/23 00:00 10/24/23 07:00
Intake and Output
10/23/23 10/24/23 10/25/23
06:59 06:59 06:59
Intake Total 3000 / 3000 660 / 660 120 / 120
Output Total 4950 / 4950 5200 / 5200 1000 / 1000
Balance -1950 / -1950 -4540 / -4540 -880 / -880
Intake:
Oral fluids 600 / 600 480 / 480 120 / 120
IV fluids (Total) 2400 / 2400
IV piggybacks 180 / 180
Output:
Urine, Mendosa 4950 / 4950 5200 / 5200 1000 / 1000
Laboratory Results
10/23/23 04:53
10/24/23 05:45
Review of Systems
-
Constitutional: Fatigue
Respiratory: Other (mild SOB)
Cardiac: No Symptoms
Abdomen/GI: No Symptoms
Physical Exam
-
General - no acute distress
Abdomen - soft, non-tender
Genitalia - mendosa in place
--- NOTE | 2023-10-24 16:45 | W.PN.NEPH.PH ---
Today's Communication / Plan
-
- increase 1/2 NS to 200cc/hr
Assessment/Plan
-
Assessment:�
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
-VI
-metabolic acidosis
-azotemia
-hyperkalemia
-hyponatremia
-HTN
-CaOx nephrolithiasis hx
-atrophic right kidney
-obstructive left uretral stone
Plan:�
no more lokelma. please give gentle K repletion
Cr downtrending to 4.5(peak 9.5), bl likely close to 2
stopped sodium bicarb, increase 1/2 NS to 200cc/hr
UOP at 5.2L, will continue with fluids at this time
continue with serial BMP
no urgent indications for dialysis at this time. remain optimistic that patient can avoid HD at this time
-
-
Date of Service: October 24, 2023
CC / HPI / ROS
-
Chief Complaint:
VI
History of Present Illness:
VI/Cr down to 4.5
K down to 3.6
now with some alkalosis
s/p left ureteral stent
Review of Systems:
no CP/SOB
nonoliguric
Labs
-
Labs:
WBC 8.3 10^3/uL (4.8-10.8) 10/23/23 04:53
RBC 2.93 10^6/uL (4.70-6.10) L 10/23/23 04:53
Hgb 10.1 g/dL (13.0-18.0) L 10/23/23 04:53
Hct 28.9 % (39.0-52.0) L 10/23/23 04:53
Plt Count 181 10^3/uL (130-400) 10/23/23 04:53
Sodium 138 mmol/L (135-145) 10/24/23 05:45
Potassium 3.6 mmol/L (3.5-5.1) 10/24/23 05:45
Chloride 93 mmol/L (98-107) L 10/24/23 05:45
Carbon Dioxide 32 mmol/L (22-30) H 10/24/23 05:45
BUN 75 mg/dl (9-20) H 10/24/23 05:45
Creatinine 4.5 mg/dL (0.7-1.3) H* 10/24/23 05:45
eGFR 11.91 10/24/23 05:45
Glucose 73 mg/dl (70-99) 10/24/23 05:45
Calcium 8.2 mg/dl (8.4-10.2) L 10/24/23 05:45
Albumin 2.9 g/dl (3.5-5.0) L 10/21/23 12:19
Physical Exam
-
Vital Signs:
Vital Signs
Temp Pulse Resp BP Pulse Ox
98.8 F 88 21 149/88 97
10/24/23 12:00 10/24/23 14:00 10/24/23 14:00 10/24/23 14:00 10/24/23 15:36
Cardiovascular:: Regular rate and rhythm
Respiratory:: Bilateral: CTA
Lung Excursion:: Normal
Abdomen:: Nontender and Soft
Bowel Sounds:: Normal
Extremity Edema:: None: Bilateral:
Arellano Catheter: No
[2023-10-24] MEDS: TYLENOL 650 MG PO (20:45)
[2023-10-25] VITALS (12 sets, daily range): BP systolic 129–164; BP diastolic 79–104; PULSE 86–104; O2SAT 94
[2023-10-25] MEDS: 0.45%NACL 1000 IV (01:33)
[2023-10-25 05:07] LABS: Blood Urea Nitrogen 55 mg/dl (9-20); Calcium 8.2 mg/dl (8.4-10.2); Carbon Dioxide 28 mmol/L (22-30); Chloride 101 mmol/L (98-107); Estimated Creatinine Clearance 16 ml/min; Glucose 93 mg/dl (70-99); Potassium 3.3 mmol/L (3.5-5.1); Sodium 135 mmol/L (135-145)
--- NOTE | 2023-10-25 06:24 | W.PN.HOSP.TC ---
Today's Communication/Plan
-
.
Transfer to med/surg floor
Wean off O2
Assessment / Plan
Assessment / Plan
Physical Exam
-
General: No Apparent Distress
HEENT: Normocephalic and Atraumatic
Respiratory: Negative Wheezes or Rales but limited both sides.
Cardiac: Regular Rhythm
GI: Soft and Nontender
Genito-urinary: No Costovertebral Tender. + Arellano , clear urine
Musculoskeletal: No Edema
Neuro: AO x 3, followed commands.
Psych: Calm, no agitation.
Assessment:
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
Acute metabolic acidosis
Creatinine around 3.5
No flank pain
No hematuria
s/p IVF with bicarb. no need for more IVF
Appreciate nephrology help
# Acute Hyperkalemia
s/p Lokelma
Resolved
# poor appetite
change diet to regular
# Constipation
MiraLAX & Senna
# nausea
Zofran did not help
he feels better today likely related to metabolic abnormality
Compazine is added
# Hypokalemia, replace, recheck at 3.3
# Acute hyponatremia
Better. Na at 135
# Hx of solitary kidney
- related to obstructive L ureteral stone s/p stenting 10/20. Continue Arellano and monitor I/Os per Urology. Follow urine culture.
- continue Flomax
- hold Farxiga
Hold Plavix.
c/w Arellano
# Gait dysfunction
Order PT/OT
# Essential HTN
AM BP 126/79
Added PRN oral hydralazine
#HLD - hold statin
Social: patients 10/21/23, her is tentatively planned 10/29.
DVT ppx: SC heparin (noted on Plavix for clot prevention at home, no record of ASCVD)
Code: Full
Total time spent to see the patient, examine the patient on the floor, review data and lab results, discuss treatment plan with patient, nursing staff around 57 minutes
Anticipated Discharge: 24 - 48 hours
Subjective/Interval History
-
Date of Service: October 25, 2023
No complaints
No pain issues
Objective Data
-
Labs:
Laboratory Results
10/25/23
04:23
Sodium 135
Potassium 3.3 L
Chloride 101
Carbon Dioxide 28
BUN 55 H
Creatinine 3.5 H
Glucose 93
Calcium 8.2 L
Vital Signs:
Vital Signs
Temp Pulse Resp BP Pulse Ox
98.2 F 69 14 151/104 95
10/25/23 03:54 10/25/23 04:23 10/24/23 22:00 10/25/23 04:23 10/25/23 04:23
I&O
10/23/23 10/24/23 10/25/23
06:59 06:59 06:59
Intake Total 3000 / 3000 660 / 660 4160 / 4160
Output Total 4950 / 4950 5200 / 5200 4100 / 4100
Balance -1950 / -1950 -4540 / -4540 60 / 60
[2023-10-25] MEDS: 0.45%NACL IV (07:23)
--- NOTE | 2023-10-25 08:14 | W.PN.URO.CBU ---
Today's Communication / Plan
-
contiue mendosa and stent
Assessment / Plan
-
hx of prostate cancer
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
ARF
s/p left ureteral stent
slow improvement in cr
continue stent and mendosa
ucx negative
asa ok- would hold plavix for now
continue mendosa until renal function normalized- then can remove for TOV- have started flomax to facilitiate
pt will need to schedule outpt f/u with dr kilgore after discharge to discuss stone procedure
Diagnosis
-
Date of Service: October 25, 2023
-
Patient Diagnosis:
stone obstructing solitary kidney s/p stent 3/
ARF
prostate cancer
Subjective
-
pt looks better
more alert
urine clear- cr downtrending
feels weak
Objective
-
Vital Signs
Temp Pulse Resp BP Pulse Ox
98.2 F 68 21 151/104 95
10/25/23 03:54 10/25/23 06:00 10/25/23 06:00 10/25/23 04:23 10/25/23 06:00
Intake and Output
10/24/23 10/25/23 10/26/23
06:59 06:59 06:59
Intake Total 660 / 660 4160 / 4160
Output Total 5200 / 5200 4100 / 4100
Balance -4540 / -4540 60 / 60
Intake:
Oral fluids 480 / 480 360 / 360
IV fluids (Total) 3800 / 3800
IV piggybacks 180 / 180
Output:
Urine, Mendosa 5200 / 5200 4100 / 4100
Laboratory Results
10/23/23 04:53
10/25/23 04:23
Physical Exam
-
General - no acute distress
Abdomen - soft, non-tender
Genitalia - mendosa in place
[2023-10-25] MEDS: KCL 20 MEQ PO (08:44)
[2023-10-25] MEDS: FLOMAX 0.800000000000000044 MG PO (08:44)
[2023-10-25] MEDS: HEPARIN 5000 UNITS SC ×2 (08:44→19:48)
[2023-10-25] MEDS: MIRALAX 17 GRAMS PO (08:45)
--- NOTE | 2023-10-25 10:23 | W.PN.NEPH.PH ---
Today's Communication / Plan
-
replete K
follow bmp
no HD
Assessment/Plan
-
Assessment:�
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
-VI
-metabolic acidosis
-azotemia
-hyperkalemia
-hyponatremia
-HTN
-CaOx nephrolithiasis hx
-atrophic right kidney
-obstructive left uretral stone
Plan:�
no more lokelma.
replete K 40meq
Cr downtrending to 3.5(peak 9.5), bl likely close to 2
can d/c further ivfs
UOP at 3L
continue with serial BMP
we remain optimistic that patient can avoid HD at this time
-
-
Date of Service: October 25, 2023
CC / HPI / ROS
-
Chief Complaint:
VI
History of Present Illness:
VI/Cr down to 3.5
K down to 3.3
now with some alkalosis
s/p left ureteral stent
Review of Systems:
no CP/SOB
nonoliguric
Labs
-
Labs:
WBC 8.3 10^3/uL (4.8-10.8) 10/23/23 04:53
RBC 2.93 10^6/uL (4.70-6.10) L 10/23/23 04:53
Hgb 10.1 g/dL (13.0-18.0) L 10/23/23 04:53
Hct 28.9 % (39.0-52.0) L 10/23/23 04:53
Plt Count 181 10^3/uL (130-400) 10/23/23 04:53
Sodium 135 mmol/L (135-145) 10/25/23 04:23
Potassium 3.3 mmol/L (3.5-5.1) L 10/25/23 04:23
Chloride 101 mmol/L (98-107) 10/25/23 04:23
Carbon Dioxide 28 mmol/L (22-30) 10/25/23 04:23
BUN 55 mg/dl (9-20) H 10/25/23 04:23
Creatinine 3.5 mg/dL (0.7-1.3) H 10/25/23 04:23
eGFR 16.10 10/25/23 04:23
Glucose 93 mg/dl (70-99) 10/25/23 04:23
Calcium 8.2 mg/dl (8.4-10.2) L 10/25/23 04:23
Albumin 2.9 g/dl (3.5-5.0) L 10/21/23 12:19
Physical Exam
-
Vital Signs:
Vital Signs
Temp Pulse Resp BP Pulse Ox
98.2 F 68 21 151/104 95
10/25/23 03:54 10/25/23 06:00 10/25/23 06:00 10/25/23 04:23 10/25/23 06:00
Respiratory:: Bilateral: Coarse (decreased breath sounds to bases)
Lung Excursion:: Normal
Abdomen:: Nontender
Bowel Sounds:: Normal
Extremity Edema:: None: Bilateral:
Arellano Catheter: Yes
--- NOTE | 2023-10-25 20:32 | PTCARENOTE ---
Received pt at change of shift. Pt was OOB to chair for most of the day. Minimal assistance with RW back to bed. Pt requesting melatonin to help sleep tonight. Notified COUNTER PROFESSIONAL. No BM noted. Pt compliant with bowel regimen ordered. No other
complaints offered. Pt resting in bed with call kincaid in reach.
[2023-10-25] MEDS: MELATONIN 5 MG PO (21:57)
[2023-10-25] MEDS: SENOKOT 17.1999999999999993 MG PO (21:57)
[2023-10-26] VITALS (14 sets, daily range): BP systolic 117–171; BP diastolic 80–128; BMI 25.3
[2023-10-26] MEDS: APRESOLINE 5 MG PO (03:51)
[2023-10-26 04:41] LABS: Blood Urea Nitrogen 53 mg/dl (9-20); Calcium 8.9 mg/dl (8.4-10.2); Carbon Dioxide 27 mmol/L (22-30); Chloride 102 mmol/L (98-107); Estimated Creatinine Clearance 20 ml/min; Glucose 101 mg/dl (70-99); Potassium 3.8 mmol/L (3.5-5.1); Sodium 137 mmol/L (135-145); eGFR 21.98
--- NOTE | 2023-10-26 06:27 | W.PN.HOSP.TC ---
Today's Communication/Plan
-
dc in am
Assessment / Plan
Assessment / Plan
Physical Exam
-
General: No Apparent Distress
HEENT: Normocephalic and Atraumatic
Respiratory: Negative Wheezes or Rales but limited both sides.
Cardiac: Regular Rhythm
GI: Soft and Nontender
Genito-urinary: No Costovertebral Tender. + Arellano , clear urine
Musculoskeletal: No Edema
Neuro: AO x 3, followed commands.
Psych: Calm, no agitation.
Assessment:
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
Acute metabolic acidosis
Creatinine around 2.7
No flank pain
No hematuria
s/p IVF with bicarb. no need for more IVF
Appreciate nephrology help
# Acute Hyperkalemia
s/p Lokelma
Resolved
# poor appetite
change diet to regular
# Constipation
MiraLAX & Senna
# nausea
Zofran did not help
he feels better today likely related to metabolic abnormality
Compazine is added
# Hypokalemia, replace, recheck at 3.8
will dc daily potassium
# Acute hyponatremia
Better. Na at 135
# Hx of solitary kidney
- related to obstructive L ureteral stone s/p stenting 10/20. Continue Arellano and monitor I/Os per Urology. Follow urine culture.
- continue Flomax
- hold Farxiga
Hold Plavix.
c/w Arellano
# Gait dysfunction
Order PT/OT
# Essential HTN
AM BP 150/97
Added PRN oral hydralazine
#HLD - hold statin
Social: patients 10/21/23, her is tentatively planned 10/29, patient is not planning to attend.
DVT ppx: SC heparin (noted on Plavix for clot prevention at home, no record of ASCVD)
Code: Full
Total time spent to see the patient, examine the patient on the floor, review data and lab results, discuss treatment plan with patient, nursing staff around 55 minutes
Anticipated Discharge: Within 24 hours
Subjective/Interval History
-
Date of Service: October 26, 2023
No complaints
Objective Data
-
Labs:
Laboratory Results
10/26/23
03:57
Sodium 137
Potassium 3.8
Chloride 102
Carbon Dioxide 27
BUN 53 H
Creatinine 2.7 H
Glucose 101 H
Calcium 8.9
Vital Signs:
Vital Signs
Temp Pulse Resp BP Pulse Ox
98.6 F 87 25 163/93 97
10/26/23 04:10 10/26/23 03:51 10/26/23 02:00 10/26/23 03:51 10/26/23 02:00
I&O
10/24/23 10/25/23 10/26/23
06:59 06:59 06:59
Intake Total 660 / 660 4160 / 4160 480 / 480
Output Total 5200 / 5200 4100 / 4100 2100 / 2100
Balance -4540 / -4540 60 / 60 -1620 / -1620
[2023-10-26] MEDS: FLOMAX 0.800000000000000044 MG PO (07:58)
[2023-10-26] MEDS: HEPARIN 5000 UNITS SC ×2 (07:58→20:39)
[2023-10-26] MEDS: KCL 20 MEQ PO (07:58)
[2023-10-26] MEDS: MIRALAX 17 GRAMS PO (07:59)
--- NOTE | 2023-10-26 10:01 | W.PN.URO.CBU ---
Today's Communication / Plan
-
Remove Arellano today
Follow BMP
Assessment / Plan
-
hx of prostate cancer
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
ARF
s/p left ureteral stent
slow improvement in cr continues
continue stent.
Arellano out today
ucx negative
asa ok- would hold plavix for now
pt will need to schedule outpt f/u with dr kilgore after discharge to discuss stone procedure
Diagnosis
-
Date of Service: October 26, 2023
-
Patient Diagnosis:
stone obstructing solitary kidney s/p stent 3/2
ARF
prostate cancer
Subjective
-
Comfortable
No significant catheter bother
Objective
-
Vital Signs
Temp Pulse Resp BP Pulse Ox
98.3 F 87 15 161/99 93
10/26/23 07:50 10/26/23 08:00 10/26/23 08:00 10/26/23 08:00 10/26/23 09:00
Intake and Output
10/25/23 10/26/23 10/27/23
06:59 06:59 06:59
Intake Total 4160 / 4160 480 / 480
Output Total 4100 / 4100 2100 / 2100 550 / 550
Balance 60 / 60 -1620 / -1620 -550 / -550
Intake:
Oral fluids 360 / 360 480 / 480
IV fluids (Total) 3800 / 3800
Output:
Urine, Arellano 4100 / 4100 2100 / 2100 550 / 550
Laboratory Results
10/23/23 04:53
10/26/23 03:57
Review of Systems
-
Constitutional: Fatigue
Respiratory: No Symptoms
Cardiac: No Symptoms
Abdomen/GI: No Symptoms
Neurological: No Symptoms
Physical Exam
-
General - well nourished, no acute distress
Abdomen - soft, non-tender
Genitalia - normal with Arellano draining clear urine
Neuro - AOx3, no motor deficits
--- NOTE | 2023-10-26 10:19 | W.PN.NEPH.PH ---
Today's Communication / Plan
-
creatinine approaching baseline
we will sign off
Assessment/Plan
-
Assessment:�
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
-VI
-metabolic acidosis
-azotemia
-hyperkalemia
-hyponatremia
-HTN
-CaOx nephrolithiasis hx
-atrophic right kidney
-obstructive left uretral stone
Plan:�
Cr downtrending to 2.7(peak 9.5), bl likely close to 2
no more IVFs
UOP at 2.6L
we will sign off
-
-
Date of Service: October 26, 2023
CC / HPI / ROS
-
Chief Complaint:
VI
History of Present Illness:
VI/Cr down to 2.7
K stable
s/p left ureteral stent
Review of Systems:
no CP/SOB
nonoliguric via mendosa
Labs
-
Labs:
WBC 8.3 10^3/uL (4.8-10.8) 10/23/23 04:53
RBC 2.93 10^6/uL (4.70-6.10) L 10/23/23 04:53
Hgb 10.1 g/dL (13.0-18.0) L 10/23/23 04:53
Hct 28.9 % (39.0-52.0) L 10/23/23 04:53
Plt Count 181 10^3/uL (130-400) 10/23/23 04:53
Sodium 137 mmol/L (135-145) 10/26/23 03:57
Potassium 3.8 mmol/L (3.5-5.1) 10/26/23 03:57
Chloride 102 mmol/L (98-107) 10/26/23 03:57
Carbon Dioxide 27 mmol/L (22-30) 10/26/23 03:57
BUN 53 mg/dl (9-20) H 10/26/23 03:57
Creatinine 2.7 mg/dL (0.7-1.3) H 10/26/23 03:57
eGFR 21.98 10/26/23 03:57
Glucose 101 mg/dl (70-99) H 10/26/23 03:57
Calcium 8.9 mg/dl (8.4-10.2) 10/26/23 03:57
Albumin 2.9 g/dl (3.5-5.0) L 10/21/23 12:19
Physical Exam
-
Vital Signs:
Vital Signs
Temp Pulse Resp BP Pulse Ox
98.3 F 87 15 161/99 93
10/26/23 07:50 10/26/23 08:00 10/26/23 08:00 10/26/23 08:00 10/26/23 09:00
Cardiovascular:: Regular rate and rhythm
Respiratory:: Bilateral: Coarse
Lung Excursion:: Normal
Abdomen:: Nontender, Soft and Tender
Bowel Sounds:: Normal
Extremity Edema:: None: Bilateral:
Mendosa Catheter: Yes
--- NOTE | 2023-10-26 14:28 | CM ---
CM following r: discharge planning.
Reviewed pt's chart, met with t.
According to pt will be ready for discharge within 24 hours.
Per CM note a plan was to get pt to [facility] for a short term rehab. CM spoke to [facility] SNF liaison and she stated they do not have a bed available till Monday next week.
CM discussed it with the pt. Pt expressed understanding. A list of SNFs provided to the pt and pt preferred [facility] SNF. A referral to [facility] made, spoke to improvement director Alisson and she is aware that pt will be ready for discharge
tomorrow.
Awaiting for determination from [facility].
D/C plan: [facility] SNF based on bed availability on the day of discharge.
CM will follow to assist pt with discharge to [facility].
--- NOTE | 2023-10-26 19:02 | PTCARENOTE ---
Pt received in bed @ 0700. Assisted OOB to chair x1 with rolling walker. Arellano catheter removed. Pt voided 175ml of yellow urine. Unable to find bladder to scan for PVR. Pt without complaint.
[2023-10-26] MEDS: SENOKOT 17.1999999999999993 MG PO (20:43)
--- NOTE | 2023-10-26 22:03 | PTCARENOTE ---
Received pt at change of shift. Pt OOB to chair and feels more comfortable sitting upright. Pt voiding in urinal with no difficulties. Clear yellow urine. No c/o pain. Pt concerned about where he will be placed for rehab. Let him know that we
were waiting to hear back from the facility that case management reached out to and won't hear an update until tomorrow morning at the earliest. Pt resting in the chair with call kincaid in reach.
[2023-10-27] VITALS (12 sets, daily range): BP systolic 135–177; BP diastolic 79–119; PULSE 75; O2SAT 96; BMI 24.2
--- NOTE | 2023-10-27 06:27 | W.PN.HOSP.TC ---
Today's Communication/Plan
-
dc
Assessment / Plan
Assessment / Plan
Physical Exam
-
General: No Apparent Distress
HEENT: Normocephalic and Atraumatic
Respiratory: Negative Wheezes or Rales but limited both sides.
Cardiac: Regular Rhythm
GI: Soft and Nontender
Genito-urinary: No Costovertebral Tender. + Arellano , clear urine
Musculoskeletal: No Edema
Neuro: AO x 3, followed commands.
Psych: Calm, no agitation.
Assessment:
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
Acute metabolic acidosis
Creatinine around 2.7, repeat BMP in 3-5 days after dc
No flank pain
No hematuria
s/p IVF with bicarb. no need for more IVF. And has appointment with his primary toe sewer Dr. Dejesus. No Farxiga for now
Appreciate nephrology help
# Acute Hyperkalemia
s/p Lokelma
Resolved
# poor appetite
changed diet to regular
# Constipation
MiraLAX & Senna
No bowel movement yet. Abdomen soft nontender or distended.
# nausea
Zofran did not help
he feels better today likely related to metabolic abnormality
Compazine is added
# Hypokalemia, replace, recheck at 3.8
will dc daily potassium
# Acute hyponatremia
Better. Na at 135
# Hx of solitary kidney
- related to obstructive L ureteral stone s/p stenting /. Continue Arellano and monitor I/Os per Urology. Follow urine culture.
- continue Flomax
- Stopped Farxiga
Hold Plavix. Changed to aspirin
c/w Arellano
# Gait dysfunction
Order PT/OT
# Essential HTN
Borderline high at times
Added PRN oral hydralazine
#HLD - hold statin
Social: patients 10/21/23, her is tentatively planned 10/29, patient is not planning to attend.
DVT ppx: SC heparin (noted on Plavix for clot prevention at home, no record of ASCVD)
Code: Full
Total discharge time spent to see the patient, examine the patient on the floor, review data and lab results, discuss treatment plan with patient, daughter, shoe parts casermanager php staff around 65 minutes
Anticipated Discharge: Today
Subjective/Interval History
-
Date of Service: October 27, 2023
Doing well
No chest pain
NO BM yet
Objective Data
-
Vital Signs:
Vital Signs
Temp Pulse Resp BP Pulse Ox
98.0 F 81 18 150/79 91
10/27/23 03:20 10/27/23 06:00 10/27/23 06:00 10/27/23 06:00 10/27/23 06:00
I&O
10/25/23 10/26/23 10/27/23
06:59 06:59 06:59
Intake Total 4160 / 4160 480 / 480 480 / 480
Output Total 4100 / 4100 2100 / 2100 2100 / 2100
Balance 60 / 60 -1620 / -1620 -1620 / -1620
[2023-10-27] MEDS: KCL 20 MEQ PO (08:46)
[2023-10-27] MEDS: FLOMAX 0.800000000000000044 MG PO (08:47)
[2023-10-27] MEDS: HEPARIN 5000 UNITS SC (08:47)
[2023-10-27] MEDS: MIRALAX 17 GRAMS PO (08:47)
--- NOTE | 2023-10-27 09:00 | W.PN.URO.CBU ---
Today's Communication / Plan
-
Check BMP
Assessment / Plan
-
hx of prostate cancer
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
ARF
s/p left ureteral stent
slow improvement in cr continues
continue stent.
Arellano out 10/26/23: voiding
ucx negative
asa ok- would hold plavix for now
pt will need to schedule outpt f/u with dr kilgore after discharge to discuss stone procedure
Diagnosis
-
Date of Service: October 27, 2023
-
Patient Diagnosis:
stone obstructing solitary kidney s/p stent 10/20
ARF
prostate cancer
Subjective
-
Voiding volitionally
No dysuria
Urgency
Objective
-
Vital Signs
Temp Pulse Resp BP Pulse Ox
98.6 F 81 18 150/79 91
10/27/23 08:02 10/27/23 06:00 10/27/23 06:00 10/27/23 06:00 10/27/23 06:00
Intake and Output
10/26/23 10/27/23 10/28/23
06:59 06:59 06:59
Intake Total 480 / 480 480 / 480
Output Total 2099
Balance -1620 / -1620 -1620 / -1620
Intake:
Oral fluids 480 / 480 480 / 480
Output:
Urine, Arellano 2099 1050 / 1050
Urine, Voided 1050 / 1050
Laboratory Results
10/23/23 04:53
10/26/23 03:57
Review of Systems
-
Constitutional: Fatigue
Respiratory: No Symptoms
Cardiac: No Symptoms
Abdomen/GI: No Symptoms
: Urgency
Neurological: No Symptoms
Physical Exam
-
General - well nourished, no acute distress
Abdomen - soft, non-tender, positive bowel sounds, no CVAT
Genitalia - normal
--- NOTE | 2023-10-27 12:06 | CM ---
CM following re: discharge planning.
Reviewed pt's chart, met with pt and pt's daughter Destinee at bedside.
According to MD pt is medically stable to be discharged today. Both pt and his daughter Destinee are aware, expressed their agreement with discharge. IMM reviewed, placed in chart, pt has a copy.
CM spoke to [facility] director technical and she confirmed that pt is accepted for admission to [facility] today and an auth for skilled services requested.
CM called [employer], clinical presented to oil field caser Ewa, pt is approved for 7 initial days for skilled level of care at [facility] from today 10/27/23 till 11/12/23. NRD and LCD 11/02/23. Auth is: [id number], level 1. Auth info
forwarded to [facility] via TT to director of admission.
Transportation is arranged by with [facility] with pickle maker time 3:00 p.m. PMNC completed and left with . Ambulance auth with Acute care ambulance: [id number]
Both pt, his daughter Destinee, RN and [facility] director technical are aware of discharge time.
[facility] nursing report: [phone]
Discharge instructions fax: [phone]
D/C plan: [facility].
--- NOTE | 2023-10-27 12:17 | W.DCSUMMARY ---
Discharge Summary
Discharge Data
Date of Admission: 10/21/23
Date of Discharge: 10/27/23
-
Pending Results: No
Hospital Course
88 years old male with history of right nephrectomy presented to the emergency room after having a fall at home. Patient reported nausea, poor appetite, ambulatory dysfunction with weakness. Patient was found to have acute kidney injury. Patient
was evaluated by urologist. He was found to have left ureteral stone with obstruction of solitary kidney and had cystoscopy with left retrograde and left ureteral stent by Dr. Phillips on October 20. No complications reported. Patient had hematuria
and Plavix was discontinued. Patient was seen by vacuum extractor operator. He received intravenous antibiotic with close monitoring of input and output. He had urine catheter. Electrolytes were monitored and were treated accordingly. He received
bicarbonate drip also. His kidney function started to improve with creatinine coming down to 2.7 upon discharge. Nephrology recommended to avoid agents with potential nephrotoxic side effects. Farxiga was stopped. Nausea was treated with Zofran
and Compazine. Appetite started to improve and patient did not have vomiting. He was noticed to have infrequent elevation blood pressure and was given hydralazine as needed. Patient was started on aspirin after stopping Plavix. Patient remained
hemodynamically stable. Physical therapy evaluated the patient recommended retirement facility placement. Patient was discharged in a stable condition. Patient will need to follow-up with urologist and vacuum extractor operator as an outpatient. He will
be scheduled to have stone removal the procedure.
Discharge Plan
-
Patient Disposition: Group Home/SNF
Discharge Diagnosis/Procedures: Acute kidney injury. Repeat blood work in 3 to 5 days. Patient should follow-up with nephrology, outpatient vacuum extractor operator is Dr. Dejesus.
Chronic kidney disease stage IV
Electrolyte imbalance, treated
Constipation, continue with MiraLAX and nighttime Senokot. Stop Senokot if started to have loose stools/diarrhea
Nausea, as needed Compazine
Obstructive left ureteral stone status post stenting on October 20, Arellano catheter was removed. Continue Flomax. No Plavix and Farxiga for now. Patient will need to follow-up with Dr. Phillips to schedule an outpatient appointment for stone removal.
Primary hypertension. Borderline high blood pressure. Continue with as needed hydralazine.
Hyperlipidemia
Diet: Regular
Blood Work: BMP in 3 to 5-day
Referrals:
Kimberley Cantrell MD [Family Provider] -
Nain Phillips Jr., MD [Active] - (Call to make an appointment)
Estephania Dejesus MD [Active] - in two to four weeks
Prescriptions:
New
hydralazine 10 mg Tablet
5 mg PO TIDPRN PRN (Reason: SBP more than 155) Qty: 20 0RF
sennosides [Senna Lax] 8.6 mg Tablet
17.2 mg PO HS Qty: 10 0RF
polyethylene glycol 3350 [HealthyLax] 17 gram Powder In Packet
17 g PO DAILY Qty: 30 0RF
aspirin 81 mg tablet,chewable
81 mg PO DAILY Qty: 30 0RF
prochlorperazine maleate [Compazine] 10 mg tablet
10 mg PO BID PRN (Reason: nausea and vomiting) Qty: 10 0RF
Continued
[id number] serr [Osteo Bi-Flex (5-Loxin)] 1 EACH tablet
2 ea PO DAILY
atorvastatin 40 mg Tablet
40 mg PO QPM
tamsulosin 0.4 mg Capsule
0.8 mg PO DAILY
PreserVision AREDS-2 250-90-40-1 mg Capsule
1 tab PO BID
acetaminophen [Tylenol] 325 mg Tablet
650 mg PO Q4HPRN PRN (Reason: mild pain)
Discontinued
dapagliflozin propanediol [Farxiga] 10 mg Tablet
10 mg PO DAILY
clopidogrel 75 MG tablet
75 mg PO QPM
Discharge Orders:
Discharge Patient (As Directed); Ordered 10/27/23
Ordered By: Dawood Abbas
Discharge Date and Time
Discharge Date/Time: 10/27/23 16:29
--- NOTE | 2023-10-27 13:43 | PTCARENOTE ---
Patient AAOx3, DC today at 3pm to [facility]. Report given. IVs removed. VSS. RA, NSR. Reports no discomfort. Voiding appropriately. Daughter at bedside and updated. Continuing to monitor patient until DC.
== END 2023-10-27 16:29 | DRG 660 ==
LOC: IMU 14:28
PROVIDERS: Internal Medicine; Specialist; ADMITTING PHYSICIAN Internal Medicine; ATTENDING PHYSICIAN Internal Medicine; EMERGENCY PHYSICIAN Emergency Medicine; FAMILY PHYSICIAN Student in an Organized Health Care Education/Training Program; OTHER PHYSICIAN Specialist
PROC: 0T778DZ Dilation of Left Ureter with Intraluminal Device, Via Natural or Artificial Opening Endoscopic (ICD-10-PCS; 2023-10-21)
DX: N13.2 Hydronephrosis with renal and ureteral calculous obstruction (principal); E87.1 Hypo-osmolality and hyponatremia; E87.20 Acidosis, unspecified; N17.9 Acute kidney failure, unspecified; N18.4 Chronic kidney disease, stage 4 (severe); W18.30XA Fall on same level, unspecified, initial encounter; N26.1 Atrophy of kidney (terminal); E87.5 Hyperkalemia; E86.1 Hypovolemia; E78.00 Pure hypercholesterolemia, unspecified; I12.9 Hypertensive chronic kidney disease with stage 1 through stage 4 chronic kidney disease, or unspecified chronic kidney disease; K59.00 Constipation, unspecified; R11.0 Nausea; E87.6 Hypokalemia; M19.90 Unspecified osteoarthritis, unspecified site; R79.89 Other specified abnormal findings of blood chemistry; I48.91 Unspecified atrial fibrillation; C61 Malignant neoplasm of prostate; N40.0 Benign prostatic hyperplasia without lower urinary tract symptoms; I25.10 Atherosclerotic heart disease of native coronary artery without angina pectoris; H40.9 Unspecified glaucoma; Z86.73 Personal history of transient ischemic attack (TIA), and cerebral infarction without residual deficits; Z79.02 Long term (current) use of antithrombotics/antiplatelets; Z87.442 Personal history of urinary calculi; Z87.891 Personal history of nicotine dependence
CPT/HCPCS: 70450; 72100; 72125; 74176; 74420; 76000; 80048; 80053; 81003; 81015; 82550; 83735; 85025; 85027; 85610; 85730; 87070; 87086; 93005; 96361; 96374; 96375; 97116; 97162; 97167; 97530; 97535; 99291; A4300; C1758; C2617

== ENCOUNTER → 2023-10-31 13:00 | Outpatient (REF) | payer OTHER, SELFPAY | LOC: OLABP 13:00 | PROVIDERS: ATTENDING PHYSICIAN Family Medicine | DX: N17.9 Acute kidney failure, unspecified (principal); N18.4 Chronic kidney disease, stage 4 (severe) | CPT/HCPCS: 36415 ==

== ENCOUNTER → 2023-11-02 09:34 | Outpatient (REF) | payer OTHER, SELFPAY ==
[2023-11-02 11:34] LABS: Blood Urea Nitrogen 51 mg/dl (9-20); Calcium 9.3 mg/dl (8.4-10.2); Carbon Dioxide 23 mmol/L (22-30); Chloride 110 mmol/L (98-107); Glucose 93 mg/dl (70-99); Potassium 4.7 mmol/L (3.5-5.1); Sodium 140 mmol/L (135-145); eGFR 25.32
== END ==
LOC: OLABP 09:34
PROVIDERS: ATTENDING PHYSICIAN Family Medicine
DX: N17.9 Acute kidney failure, unspecified (principal); N18.4 Chronic kidney disease, stage 4 (severe); E87.6 Hypokalemia; E87.1 Hypo-osmolality and hyponatremia
CPT/HCPCS: 36415; 80048

== ENCOUNTER → 2023-11-03 09:21 | Outpatient (REF) | payer OTHER, SELFPAY ==
[2023-11-03 10:25] LABS: Blood Urea Nitrogen 47 mg/dl (9-20); Calcium 8.9 mg/dl (8.4-10.2); Carbon Dioxide 22 mmol/L (22-30); Chloride 112 mmol/L (98-107); Glucose 95 mg/dl (70-99); Potassium 4.5 mmol/L (3.5-5.1); Sodium 137 mmol/L (135-145); eGFR 25.32
[2023-11-03 10:29] LABS: Hematocrit 31.4 % (39.0-52.0); Hemoglobin 10.3 g/dL (13.0-18.0); Mean Corp Hgb Conc. 32.8 g/dL (33.0-37.0); Mean Corpuscular Hgb 35.3 pg (27.0-31.0); Mean Corpuscular Volume 107.5 fL (80.0-94.0); Mean Platelet Volume 10.2 fL (7.4-10.4); Platelet Count 234 10^3/uL (130-400); Red Blood Cell Count 2.92 10^6/uL (4.70-6.10); Red Cell Dist. Width 13.2 % (11.5-14.5); White Blood Cell Count 8.1 10^3/uL (4.8-10.8)
== END ==
LOC: OLABP 09:21
PROVIDERS: ATTENDING PHYSICIAN Family Medicine
DX: E87.1 Hypo-osmolality and hyponatremia (principal); N17.9 Acute kidney failure, unspecified; N18.4 Chronic kidney disease, stage 4 (severe); E87.6 Hypokalemia
CPT/HCPCS: 36415; 80048; 85027

== ENCOUNTER 2023-11-10 05:52 | Day surgery (SDC) | payer OTHER, SELFPAY ==
[2023-11-10] VITALS (10 sets, daily range): BP systolic 112–131; BP diastolic 65–88; BMI 24.6
[2023-11-10] MEDS: Pyridium 200 MG PO (11:47)
== END 2023-11-10 13:20 ==
LOC: SDS 05:52
PROVIDERS: ATTENDING PHYSICIAN Specialist
DX: N20.1 Calculus of ureter (principal); Q60.0 Renal agenesis, unilateral
CPT/HCPCS: 52356; 74018; 76000; 82365; C1758; C1894; C2617

== ENCOUNTER 2024-10-24 14:15 | Inpatient (IN) | payer OTHER, SELFPAY ==
[2024-10-23] VITALS (10 sets, daily range): BP systolic 129–178; BP diastolic 73–94; O2SAT 95; BMI 26.5
--- NOTE | 2024-10-23 09:49 | ED.GENMED ---
History of Present Illness
General
Chief Complaint: Weakness
Source: patient and ambulance crew
Exam Limitations: none
Time Seen by Provider: 10/23/24 09:47
Nursing documentation reviewed up to this point in time: agreed with
History of Present Illness
History of Present Illness:
The patient is a very pleasant 89-year-old man who resides at a [place] [facility] home but lives alone. Patient reports that when he got up out of bed this morning, he was unable to get out of the bed and walk which is extremely unusual. He attributes
this to weakness in his legs. He reports he is generally able to get up out of bed without any difficulty at all. He reports he otherwise does not feel sick and denies cough, nasal congestion, and fever. Patient also reports left upper
buttock/left lower back pain that is extremely mild that he has had for some time. He denies any recent injury or fall. He denies bowel or bladder incontinence. He is essentially pain-free at this time.
Past History
Past History
ED Past Medical History: Arrthythmia (Atrial fibrillation), CVA and HTN
ED Past Surgical History: Tonsilectomy and Other
Social History
Tobacco: Non-smoker
Alcohol: None
Drug: None
Personal:
Living: assisted living
Employment: Retired
Family History
Family History: Other
Review of Systems
Review of Systems
Allergies reviewed?: Yes
All Other Systems: ROS reviewed and negative except as documented in HPI and ROS
Constitutional: Reports no symptoms
EENT: Reports no symptoms
Respiratory: Reports no symptoms
Cardiac: Reports no symptoms
ABD/GI: Reports no symptoms
: Reports no symptoms
Musculoskeletal: Reports other (Leg weakness)
Skin: Reports no symptoms
Neurological: Reports no symptoms
Hematologic/Lymphatic: Reports no symptoms
Psychiatric: Reports no symptoms
Phy Exam
Physical Exam
Physical Exam:
Physical Exam
General: no apparent distress, not acutely ill, well appearing
Neck: supple. no meningeal signs. normal psoterior pharynx
Heart: s1/s2 regular rate and rhythm,
Lungs: no acute respiratory distress. clear bilaterally
Abdomen: normal bowel sounds. not tender. no CVAT
Neuro: alert and orientedx3. 5 out of 5 strength in upper extremities without drift of upper extremities. Cranial nerves equal and symmetric bilaterally. 5 out of 5 strength in lower extremities with some drifting of
left leg, no saddle anesthesia
Skin: no rash
Psychiatric: well kept. interactive and cooperative
Extremities: no edema. no calf tenderness. negative homans. good distal pulses. Excellent sensation bilaterally in arms and legs
Course
Orders/Labs/Results
Orders:
Orders
10/23/24 10:01
CT Head W/o Iv Contrast Urgent
Comment:
Reason For Exam: left leg weakness
10/23/24 10:09
Lumbar Spine Complete, 4 View [CR Lumbar Spine Comp Min 4 Vw*] Urgent
Comment:
Reason For Exam: BILATERAL LEG WEAKNESS, LEFT MORE THAN RIGHT
10/23/24 10:11
Complete Blood Count/With Diff Urgent
Comprehensive Metabolic Panel Urgent
Urinalysis Reflex To Culture Urgent
Date Specimen was Collected: 10/23/24
Time Specimen was Collected: 10:08
Urine Microscopic Reflex Cult Urgent
Influenza A+B Rapid Molecular Urgent
BEATRICE Source: Nasal Swab
Specimen Description:
10/23/24 11:03
Electrocardiogram (*1) Urgent
Reason for Study: Fatigue / Weakness
EKG- Treatment ONCE
10/23/24 11:14
PT Consult [Pt Eval And Treat] Urgent
Activity Level: Out of Bed-Early Mobility
Abnormal Lab Results
10/23/24
10:11
RBC 3.93 L 10^6/uL
(4.70-6.10)
MCV 104.8 H fL
(80.0-94.0)
MCH 34.4 H pg
(27.0-31.0)
MCHC 32.8 L g/dL
(33.0-37.0)
Lymphocytes % 19.7 L %
(20.5-51.1)
Chloride 108 H mmol/L
(98-107)
BUN 34 H mg/dl
(9-20)
Creatinine 2.1 H mg/dL
(0.7-1.3)
Alkaline Phosphatase 132 H U/L
(38-126)
Total Protein 6.0 L g/dl
(6.3-8.2)
Ur Occult Blood Reflex 1+ A
(Negative)
Urine Bacteria (Reflex) Few A
(Negative)
Urine Glucose 4+ A
(Negative)
Urine Albumin (Reflex) 2+ A
(Neg - Trace)
10/23/24 10:11
10/23/24 10:11
Vital Signs
Initial and Last Documented VS:
Initial Vital Signs
BP
149/94
10/23/24 09:49
Last Documented Vital Signs
Temp Pulse Resp BP Pulse Ox
97.7 F 56 24 156/79 96
10/23/24 09:51 10/23/24 10:45 10/23/24 10:45 10/23/24 10:00 10/23/24 10:45
MDM/Problems Addressed
Differential Diagnosis Includes:
Acute UTI, acute hyponatremia, spinal cord lesion, acute CVA
MDM/Problems Addressed:
Patient presents with acute bilateral leg weakness seemingly slightly worse in left leg than right
Chronic conditions affecting care:
Given patient has a history of high blood pressure he could be an increased risk of stroke causing left leg weakness
Chronic conditions affecting care: HTN
Acute Exacerbation and/or Progression of Chronic Illness:
Patient is acutely hypertensive
Acute Exacerbation and/or Progression of Chronic Illness: HTN
*Radiology
Radiology exam reviewed: preliminary read by ED provider (Lumbar spine x-ray reviewed by me. 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
*Pulse Oximetry
Patient hypoxic: no
*Spring Repairer Helper Hand Interpretation
Rate: normal
Interpretation: normal
Rhythm: sinus
*Critical Care Note
Total Time (30-74mins, 75-104mins- exclusive of procedures): Not Applicable
Data Reviewed
Review of Other/Old Records Reveals: Testing (Cardiac echo done in 2019 shows an EF of 40 to 45%)
Source: patient and ambulance crew
ED Attending Note
-
Portions of this chart may have been created with voice recognition software.� Occasional wrong word or��sound alike� substitutions may have occurred due to the inherent limitations of voice recognition software.
Discharge Plan
Departure
Patient Disposition: Admit
Date of Disposition: 10/23/24
Time of Disposition: 11:56
Admit to: Med/Surg
Presentation/result/management discussed w/ accepting MD/DO: Hospitalist
Patient with high blood pressure during this ER visit?: Yes
Condition: Good
Covid-19: Not Applicable
Discharge Problem:
Acute bilateral leg weakness
Prescriptions:
No Action
[id number] serr [Osteo Bi-Flex (5-Loxin)] 1 EACH tablet
2 ea PO DAILY
atorvastatin 40 mg Tablet
40 mg PO DAILY
tamsulosin 0.4 mg Capsule
0.8 mg PO DAILY
PreserVision AREDS-2 250-90-40-1 mg Capsule
1 tab PO BID
acetaminophen [Tylenol] 325 mg Tablet
650 mg PO Q4HPRN PRN (Reason: mild pain)
aspirin 81 mg tablet,chewable
81 mg PO DAILY Qty: 30 0RF
melatonin 10 mg Tablet
10 mg PO HS PRN (Reason: insomnia)
zolpidem 5 mg Tablet
2.5 mg PO HS PRN (Reason: sleep)
Referrals:
Cain Eastman MD [Family Provider] -
Interventions
Interventions:
*Risk Screen - Suicide Last Done: 10/23/24 10:03
*General Assessment Last Done: 10/23/24 09:51
*Neglect/Abuse Screening Last Done: 10/23/24 09:51
*ED COVID-19 Vaccine History Last Done: 10/23/24 10:26
ED- Cardiac Assessment Last Done: 10/23/24 10:05
ED- Neurological Assessment Last Done: 10/23/24 10:05
ED- Pulmonary Assessment Last Done: 10/23/24 10:04
Discharge Date and Time
Print Language: SLOVENIAN
[2024-10-23 10:24] LABS: % Basophils 0.6 % (0-2); % Eosinophils 3.9 % (0-6); % Immature Granulocytes 0.3 % (0-0.5); % Lymphocytes 19.7 % (20.5-51.1); % Monocytes 7.8 % (1.7-9.3); % Neutrophils 67.7 % (42.2-75.2); Absolute Eosinophils 0.3 10^3/uL (0-0.7); Absolute Lymphocytes 1.3 10^3/uL (1.2-3.4); Absolute Monocytes 0.5 10^3/uL (0.1-0.6); Absolute Neutrophils 4.3 10^3/uL (1.4-6.5); Hematocrit 41.2 % (39.0-52.0); Hemoglobin 13.5 g/dL (13.0-18.0); Mean Corp Hgb Conc. 32.8 g/dL (33.0-37.0); Mean Corpuscular Hgb 34.4 pg (27.0-31.0); Mean Corpuscular Volume 104.8 fL (80.0-94.0); Mean Platelet Volume 9.7 fL (7.4-10.4); Nucleated Red Blood Cells % 0 % (-); Platelet Count 152 10^3/uL (130-400); Red Blood Cell Count 3.93 10^6/uL (4.70-6.10); Red Cell Dist. Width 13.3 % (11.5-14.5); White Blood Cell Count 6.4 10^3/uL (4.8-10.8)
[2024-10-23 10:25] LABS: Urine Albumin 2+ (Neg - Trace); Urine Bilirubin Negative (Negative); Urine Character Clear (Clear); Urine Color Yellow; Urine Glucose 4+ (Negative); Urine Ketone Negative (Negative); Urine Leukocyte Negative (Negative); Urine Nitrite Negative (Negative); Urine Occult Blood 1+ (Negative); Urine Specific Gravity 1.015 (<1.030); Urine Urobilinogen Negative (Neg - 1+)
[2024-10-23 10:35] LABS: Urine Bacteria Few (Negative); Urine Red Blood Cell 0-2 /HPF (0-2); Urine White Cell 0-2 /HPF (0-5)
[2024-10-23 10:38] LABS: ALT (SGPT) 15 U/L (0-50); AST (SGOT) 19 U/L (17-59); Albumin 3.5 g/dl (3.5-5.0); Alkaline Phosphatase 132 U/L (38-126); Blood Urea Nitrogen 34 mg/dl (9-20); Calcium 9.8 mg/dl (8.4-10.2); Carbon Dioxide 23 mmol/L (22-30); Chloride 108 mmol/L (98-107); Estimated Creatinine Clearance 25 ml/min; Glucose 94 mg/dl (70-99); Potassium 4.6 mmol/L (3.5-5.1); Sodium 140 mmol/L (135-145); Total Bilirubin 1.1 mg/dl (0.2-1.3); eGFR 29.53
--- NOTE | 2024-10-23 11:59 | HPS.HSE ---
Family Physician
-
Family Physician: Cain Eastman
Chief Complaint
-
weakness
History of Present Illness
Mr. Gabriel Cage is a 89 yo man with hx CVA (), atrophic right kidney, CKD IV, essential HTN, Hyperlipidemia, ex-smoker presents to the ER with bilateral lower extremity weakness.
Patient was in his usual health yesterday. He's sedentary per daughter. Can walk around house without a cane or walker. He lives in a [facility] community, in independent. Has a walker for longer walker. He woke up in the middle of the night
and felt that he couldn't get himself to the bathroom. He managed by holding onto things. When he woke up in the morning he remained weak and so called his daughter and 911 was called.
While going over his medications he felt he had expressive aphasia.
No fevers/chills. No headache. No new lower back pain. No bowel/bladder changes (had hard stools and started stool softener). No numbness/tingling. No cough/congestion. No chest pain or shortness of breath.
Daughter states she noted right sided facial asymmetry over past 3-4 months.
Medical History
Past Medical History
Past Medical History: Reports CVA and Renal Failure
Additional Past Medical History:
atrophic right kidney, CKD IV, essential HTN, Hyperlipidemia
Past Surgical History: Reports Urological
Social History
Tobacco: Former Smoker
Alcohol: None
Drug: None
Personal:
Living: Alone
Employment: Retired
Family History
Family History: Not pertinent
Allergies / Home Medications
Allergies reflects when Allergies were last updated in [employer].
Home Medications with original date entered in [employer]
Allergy/Medication List:
Allergies
Allergy/AdvReac Type Severity Reaction Status Date / Time
No Known Drug Allergies Allergy Unknown Verified 10/23/24 09:50
Home Medications
glucosamine [id number]-K5-Vkmhrzmus atul 1,500 mg-400 unit-100 mg tablet (Osteo Bi-Flex (5-Loxin)) 2 ea PO DAILY Supplement 09/07/18
atorvastatin 40 mg tablet 40 mg PO QPM High cholesterol 04/22/22
tamsulosin 0.4 mg capsule 0.8 mg PO HS Urinary issue 04/22/22
vit C 250 mg-vit E 90 mg-zinc 40 mg-copper 1 [id number] capsule (PreserVision AREDS-2) 1 tab PO BID Supplement 04/22/22
acetaminophen 325 mg tablet (Tylenol) 650 mg PO Q4HPRN PRN mild pain 10/21/23
aspirin 81 mg chewable tablet 81 mg PO DAILY #30 tabs 10/27/23
cetirizine 10 mg tablet (Allergy Relief (cetirizine)) 10 mg PO DAILY 10/23/24
dapagliflozin propanediol 10 mg tablet (Farxiga) 10 mg PO DAILY 10/23/24
leuprolide acetate (6 month) 45 mg intramuscular syringe kit (Lupron Depot) 45 mg IM [id number] 10/23/24
potassium chloride 10 mEq tablet,extended release 10 meq PO BID 10/23/24
Review of Systems
-
History Source: Patient
A 12 point ROS was completed and negative except as noted: Yes
Physical Exam
Vital Signs
Vital Signs
Temp Pulse Resp BP Pulse Ox
97.7 F 56 24 156/79 96
10/23/24 09:51 10/23/24 10:45 10/23/24 10:45 10/23/24 10:00 10/23/24 10:45
Physical Exam
General: No Apparent Distress
HEENT: PERRLA
Respiratory: Clear; No Wheezes
Cardiac: S1/S2 and Regular Rhythm
GI: Soft and Non Tender
Musculoskeletal: No Edema
Skin: Warm and Dry; No Rash
Neuro: AO x 3 and Other (LEANN, EOMI, mild right-sided facial asymmetry; shoulder shrug 5/5; left-sided pronator drift; 5/5 strength upper extremities; 4/5 strength b/l LE)
Psych: Calm
Laboratory Results
-
10/23/24 10:11
10/23/24 10:11
Laboratory Results
Total Bilirubin 1.1 mg/dl (0.2-1.3) 10/23/24 10:11
AST 19 U/L (17-59) 10/23/24 10:11
ALT 15 U/L (0-50) 10/23/24 10:11
Alkaline Phosphatase 132 U/L (38-126) H 10/23/24 10:11
Data Reviewed
-
Diagnostic Radiology: Report Reviewed by me
Lab Data: Labs Reviewed by me
Impression/Plan
-
Mr. Gabriel Cage is a 89 yo man with hx CVA (), atrophic right kidney, CKD IV, essential HTN, Hyperlipidemia, ex-smoker presents to the ER with bilateral lower extremity weakness. On exam he has left sided pronator drift and per daughter mild
expressive aphasia worse than baseline.
Triage VS: T 97.7, P 56, RR 24, BP 156/79, SpO2 96%
LABS: WBC 6.4, Hg 13.5, PLT 152, Na 140, K+ 4.6, Cl 108, BUN 34, Cr 2.1, Glucose 94. T. Bili 1.1, AST 19, ALT 15, Alk Phos 132
UA with 0-2 WBC
Influenza Negative
HEAD CT
IMPRESSION:
No acute intracranial abnormality noted.
Mild atrophy. Stable
Mild periventricular small vessel ischemic disease. Stable
Lumbar Spine X-Ray
IMPRESSION:
Multilevel degenerative disc disease. Progressed at all levels.
Several mild L5 compression fracture versus findings due to degenerative disease.
New mild decreased height of T12 and L4 suggesting compression fractures. Age indeterminate.
Stable grade 2 anterolisthesis of L5 on S1.
Severe bony demineralization.
Mild mid lumbar spine dextroscoliosis. Stable
Lower Extremity Weakness
Left Sided Pronator Drift
Hx CVA 2017
Concern for TIA Versus CVA
-admit to observation - change to inpatient if stroke noted on MRI
-Neurology consult
-aspirin now
-UNDERCOLLAR MAKER asa/statin
-neuro checks
-MRI ordered
-obtain carotid US/TTE if MRI shows CVA
CKD
-creatinine at baseline
-UNDERCOLLAR MAKER Farxiga
BPH
-UNDERCOLLAR MAKER Flomax
DVT PPx Hep subQ
DNR - confirmed on admission
[2024-10-23 12:46] LABS: COVID-19 Antigen Negative (Negative)
--- NOTE | 2024-10-23 12:59 | CON.NEURO ---
Consultation
Order
Date of Consultation: 10/23/24
Requesting Provider: Janell Rhodes MD
Reason for Consult: stroke
Neurology Consultation Note.
HPI: This is an 89-year-old right-handed man who presented to [facility] on 10/23/2024 with encephalopathy and ambulatory dysfunction.
Mr. Cage experienced difficulty walking when he got up to use the bathroom, stumbling both to and from the restroom yesterday in the evening. This morning, he found himself unable to stand up from a seated position on the side of his bed. The
patient denies weakness on either side, headaches, or changes in vision. He reports slower speech and denied sensory symptoms in the feet, diplopia, dyspnea, back pain, falls. He was noted to be confused by his daughter.
Based on ER note from 03/13/2018 ' started to ask if something was wrong and they think patient was speaking softly, gibberish and not making sense, so she took him to her PCP who called the EMS and came here. Apparently, there was a right
facial droop which was noted and apparently there was atrial fibrillation noted en route.
ER VS: 149/94-178/89, 70�55, afebrile
EKG: sinus bradycardia with first degree of AV block. QTc Int : 445 ms
PDMP:none
Labs: creatinine�2.1, normal WBCs, sodium, platelets�152,
CT head wo contrast�no acute abnormalities, diffuse atrophy.
Brain MRI wo modesto(03/07/2018) acute left medullar infarct vs artifact.
PMH: atrial fibrillation, prostate CA, DM, DLP, CKD, CaOx nephrolithiasis, R renal agenesis, BPH, glaucoma
PSH: hernia repair, right cataract surgery, cystoscopy, left ureteroscopy with laser lithotripsy, tonsillectomy, prostate biopsy
SH: Resident at independent living, retired, former smoker, no history excessive alcohol use, independent in AIDLs
FH: Mother in her 90s, had dementia, father in his 60s from CHF
All:NKDA
ROS: Constitutional: Negative. Negative for chills, fever and unexpected weight change.
HENT: Positive for hearing.
Eyes: Positive for chronic visual symptoms
Respiratory: Negative for cough, choking and shortness of breath.
Cardiovascular: Negative for chest pain, palpitations and leg swelling.
Gastrointestinal: Negative for abdominal pain and vomiting.
Endocrine: Negative. Negative for cold intolerance.
Genitourinary: Positive for intermittent urinary urgency
Musculoskeletal: Negative for back pain
Skin: Negative for rash.
Allergic/Immunologic: Negative. Negative for immunocompromised state.
Neurological: Positive for imbalance, dysarthria, confusion
General: Well developed. In no acute distress.
Cardio: Regular rate and rhythm without murmur. Extremities are without cyanosis or edema.
Neuro:
Mental Status: Alert, oriented to person, place, month, year, day was not sure about the date. Impaired attention and preserved comprehension. Follows simple exercise consistently. Nonfluent.
Cranial Nerves: OD�3 mm, surgical. OS�3 mm, reactive. EOMs full. Visual cox full to confrontation. No ptosis. No nystagmus. Mild right facial weakness impaired hearing AU. The palate elevated well. SCMs and traps 5/5. Tongue midline.
Mild lingual and labial dysarthria.
Motor: Normal bulk and tone. No pronator or arm drift. Strength 5/5 throughout except for symmetric proximal leg weakness 4 out of 5. No clonus.
Reflexes: 0+ throughout the upper extremities and knees. 0/2 in AJs. Plantar responses flexor bilaterally. Grasp positive the left
Sensory: Absent vibration at the toes and ankles and reduced at the knees
Coordination: No dysmetria or tremor.
Gait: deferred
Assessment and Plan:
I. Acute Bl BARBARA s-me.
II. Encephalopathy, likely vascular, metabolic
III Distal symmetric polyneuropathy
-Continue Telemetry monitoring
-Aspiration precautions
-Cautious lowering of BP by approximately 15 % during the first 24 hours is SBP >220 mmHg or diastolic blood pressure >120 mmHg
-Restart antihypertensive medications if BP>140/90 mmHg and neurologically stable in 24 to 48 hours after stroke onset
-Brain MRI without modesto
-Carotid Doppler ultrasound
-TTE
- ASA 81 mg QD indefinitely
-Cardiology consult: History of A-fib?
-Lipitor 40 mg QHS.
-Please check HbA1C, LDL, UA, UA culture
-PT.
-DVT prophylaxis.
-Case was discussed with patient's daughter
I personally reviewed all radiology and labs along with past medical records pertinent to current medical problems. Total time spent in patient care is 60 minutes.
Thank you for allowing us to participate in the care of this patient. We will continue to follow. Please do not hesitate to contact us with any questions or concerns.
Subjective/Objective
Subjective Data
Date of Service: October 23, 2024
Objective Data
Vital Signs
Temp Pulse Resp BP Pulse Ox
36.5 C 56 25 178/89 96
10/23/24 09:51 10/23/24 10:46 10/23/24 10:46 10/23/24 11:32 10/23/24 11:33
Lab Results
10/23/24 10:11
10/23/24 10:11
Sodium 140 mmol/L (135-145) 10/23/24 10:11
Potassium 4.6 mmol/L (3.5-5.1) 10/23/24 10:11
BUN 34 mg/dl (9-20) H 10/23/24 10:11
Glucose 94 mg/dl (70-99) 10/23/24 10:11
Calcium 9.8 mg/dl (8.4-10.2) 10/23/24 10:11
Patient Allergies
No Known Drug Allergies Allergy (Verified 10/23/24 09:50)
Unknown
Medications
-
Active Medications
Generic Name Dose Route Start Last Admin
Trade Name Freq PRN Reason Stop Dose Admin
Aspirin 162 mg 10/23/24 12:45
Aspirin 81 Mg Chewable Tablet PO 10/23/24 12:46
NOW STA
Home Medications
�Medication �Instructions �Recorded
glucosamine [id number] 2 ea PO DAILY Supplement 09/07/18
atul 1,500 mg-400 unit-100 mg
tablet (Osteo Bi-Flex (5-Loxin))
atorvastatin 40 mg tablet 40 mg PO QPM High cholesterol 04/22/22
tamsulosin 0.4 mg capsule 0.8 mg PO HS Urinary issue 04/22/22
vit C 250 mg-vit E 90 mg-zinc 40 1 tab PO BID Supplement 04/22/22
mg-copper 1 [id number]
capsule (PreserVision AREDS-2)
acetaminophen 325 mg tablet 650 mg PO Q4HPRN PRN mild pain 10/21/23
(Tylenol)
aspirin 81 mg chewable tablet 81 mg PO DAILY #30 tabs 10/27/23
cetirizine 10 mg tablet (Allergy 10 mg PO DAILY 10/23/24
Relief (cetirizine))
dapagliflozin propanediol 10 mg 10 mg PO DAILY 10/23/24
tablet (Farxiga)
leuprolide acetate (6 month) 45 mg 45 mg IM [id number] 10/23/24
intramuscular syringe kit (Lupron
Depot)
potassium chloride 10 mEq 10 meq PO BID 10/23/24
tablet,extended release
Vital Signs and Labs
-
Vital Signs and Labs:
Vital Signs
Temp Pulse Resp BP Pulse Ox
36.5 C 56 25 178/89 96
10/23/24 09:51 10/23/24 10:46 10/23/24 10:46 10/23/24 11:32 10/23/24 11:33
Lab Results
10/23/24 10:11
10/23/24 10:11
Sodium 140 mmol/L (135-145) 10/23/24 10:11
Potassium 4.6 mmol/L (3.5-5.1) 10/23/24 10:11
BUN 34 mg/dl (9-20) H 10/23/24 10:11
Glucose 94 mg/dl (70-99) 10/23/24 10:11
Calcium 9.8 mg/dl (8.4-10.2) 10/23/24 10:11
Medications
-
Medications:
Generic Name Dose Route Start Last Admin
Trade Name Freq PRN Reason Stop Dose Admin
Sodium Chloride 0 flush 10/23/24 14:00
Sodium Chloride 0.9% (Flush) Syringe IV 11/20/24 13:59
PER PROTOCOL CHET
Home Medications
-
Home Medications
glucosamine [id number]-[id number] atul 1,500 mg-400 unit-100 mg tablet (Osteo Bi-Flex (5-Loxin)) 2 ea PO DAILY Supplement 09/07/18
atorvastatin 40 mg tablet 40 mg PO QPM High cholesterol 04/22/22
tamsulosin 0.4 mg capsule 0.8 mg PO HS Urinary issue 04/22/22
vit C 250 mg-vit E 90 mg-zinc 40 mg-copper 1 yq-buehsh-xhagyi capsule (PreserVision AREDS-2) 1 tab PO BID Supplement 04/22/22
acetaminophen 325 mg tablet (Tylenol) 650 mg PO Q4HPRN PRN mild pain 10/21/23
aspirin 81 mg chewable tablet 81 mg PO DAILY #30 tabs 10/27/23
cetirizine 10 mg tablet (Allergy Relief (cetirizine)) 10 mg PO DAILY 10/23/24
dapagliflozin propanediol 10 mg tablet (Farxiga) 10 mg PO DAILY 10/23/24
leuprolide acetate (6 month) 45 mg intramuscular syringe kit (Lupron Depot) 45 mg IM [id number] 10/23/24
potassium chloride 10 mEq tablet,extended release 10 meq PO BID 10/23/24
[2024-10-23] MEDS: LOW STRENGTH ASPIRIN 162 MG PO (13:12)
[2024-10-23 14:39] LABS: TSH 2.15 uIU/ml (0.47-4.68)
--- NOTE | 2024-10-23 14:42 | CM ---
Spoke to patient in room and called sumeet Felipe on phone.
Patient lives alone at [facility]. NO steps at facility.
Patient uses cane in community but not in apartment.
He also has rolling walker and shower seat he does not use. He does use the 2 grab bars in shower.
One year ago he went to [facility] for 10 days.
PCP Wilfred Eastman
Pharmacy' [facility]
Patient has help every other week at home. THis same person, Aisha stayed with him first 3 nights [facility]
He has had [facility] in past and would use again.
Reviewed RENE letter with patient who signed and with daughter.
PT assessed patient today in ER. Patient and dgtr prefer he go home with [facility] RN, PT and private help from Aisha and sumeet Felipe's support.
Patient is [employer].
PLAN:home with private aide and [facility] RN, and PT.
[2024-10-23 14:57] LABS: Vitamin B12 695 pg/ml (239-931)
[2024-10-23 16:32] LABS: HDL Cholesterol 56 mg/dl; LDL Cholesterol, Calculated 48 mg/dl; Total Cholesterol 121 mg/dl (50-199); Triglyceride 86 mg/dl (10-149); Very Low Density Lipoprotein 17 mg/dl (0-30)
--- NOTE | 2024-10-23 17:00 | PTCARENOTE ---
patient arrived to room via stretcher. transferred with assist x2 with rolling walker. denies pain, no sob, oriented to room and use of call kincaid, vss, will continue to monitor. (see full shift assessment and NIH stroke scale for further
information)
[2024-10-23] MEDS: LIPITOR 40 MG PO (17:37)
[2024-10-23] MEDS: KCL 10 MEQ PO (20:18)
[2024-10-23] MEDS: OCUVITE SOFTGEL 1 CAP PO (20:18)
[2024-10-23] MEDS: HEPARIN 5000 UNITS SC (20:18)
[2024-10-23] MEDS: FLOMAX 0.8 MG PO (22:17)
[2024-10-24] VITALS (8 sets, daily range): BP systolic 118–160; BP diastolic 74–99; PULSE 100–101; O2SAT 94–95; BMI 25.1
[2024-10-24 06:03] LABS: Hematocrit 41.1 % (39.0-52.0); Mean Corp Hgb Conc. 34.1 g/dL (33.0-37.0); Mean Corpuscular Hgb 34.7 pg (27.0-31.0); Mean Corpuscular Volume 101.7 fL (80.0-94.0); Mean Platelet Volume 10.1 fL (7.4-10.4); Platelet Count 160 10^3/uL (130-400); Red Blood Cell Count 4.04 10^6/uL (4.70-6.10); Red Cell Dist. Width 13.3 % (11.5-14.5); White Blood Cell Count 7.5 10^3/uL (4.8-10.8)
[2024-10-24 06:54] LABS: Blood Urea Nitrogen 35 mg/dl (9-20); Calcium 9.7 mg/dl (8.4-10.2); Carbon Dioxide 16 mmol/L (22-30); Chloride 107 mmol/L (98-107); Estimated Creatinine Clearance 28 ml/min; Glucose 76 mg/dl (70-99); HDL Cholesterol 64 mg/dl; LDL Cholesterol, Calculated 59 mg/dl; Magnesium 2.4 mg/dl (1.6-2.3); Potassium 4.8 mmol/L (3.5-5.1); Sodium 138 mmol/L (135-145); Total Cholesterol 141 mg/dl (50-199); Triglyceride 92 mg/dl (10-149); Very Low Density Lipoprotein 18 mg/dl (0-30)
[2024-10-24 08:24] LABS: Glycohemoglobin (HgbA1c) 5.3 % (4.0-5.6)
[2024-10-24] MEDS: HEPARIN 5000 UNITS SC ×2 (08:51→20:19)
[2024-10-24] MEDS: KCL 10 MEQ PO ×2 (08:53→20:19)
[2024-10-24] MEDS: ZYRTEC 10 MG PO (08:53)
[2024-10-24] MEDS: LOW STRENGTH ASPIRIN 81 MG PO (08:53)
[2024-10-24] MEDS: FARXIGA 10 MG PO (08:53)
[2024-10-24] MEDS: OCUVITE SOFTGEL 1 CAP PO ×2 (08:53→20:19)
[2024-10-24] MEDS: PLAVIX 75 MG PO (08:55)
--- NOTE | 2024-10-24 09:28 | PTOTSP ---
Speech Therapy Evaluation:
Pt presents with grossly functional oropharyngeal swallow function at bedside. Pt reported no hx of dysphagia, PNA, or ELECTRICAL MAINTENANCE WORKER services s/p previous CVA in 2018. Despite this, pt remains at risk for aspiration given acute CVA in R lateral ángela. On this
date, oral phase was slow and mildly discoordinated, however functional. No overt s/sx of aspiration across PO trials. Pt passed 3oz swallow screen. WBC WNL. No chest imaging completed thus far.
Recommend:
1. Continue regular solids and thin liquids
2. Medications as tolerated (pt prefers dry swallow, though would encourage utilization of liquid/liquid wash)
3. General aspiration precautions
4. ELECTRICAL MAINTENANCE WORKER to briefly follow and monitor tolerance of diet level
--- NOTE | 2024-10-24 09:38 | CM ---
Original copy RENE sent to medical records.
--- NOTE | 2024-10-24 09:44 | VNURNOTE ---
Chart reviewed. [facility] liaison spoke with patient's daughter Destinee. Explained [facility] services, frequency. Patient has had our services in the past and daughter is familiar with us. Daughter is agreeable, however, Destinee stated she is more interested in
patient going to [place] after DC. Per daughter she thinks that would be more beneficial for patient. LORENA Bolanos notified. [facility] referral in SAVED status. Will continue to follow hospital course and DC dispo.
--- NOTE | 2024-10-24 09:49 | CM ---
Pt current with [facility] .
PT OT ordered . Will need PT OT to develop Dc plan.
PLAN Will need PT OT for dc plan
--- NOTE | 2024-10-24 11:01 | W.PN.NEURO.1 ---
Today's Communication / Plan
-
.
Subjective/Objective
Subjective Data
Date of Service: October 24, 2024
Neurology Follow Up Note.
Mr. Cage endorses no new complaints. He admits to worsening of dysarthria and denied any unilateral weakness or change in vision.
Carotid Doppler US-no hemodynamically significant stenosis.
TTE-unremarkable.
Brain MRI wo modesto(10/23/2024) 1.7 x 0.9 cm acute or subacute infarct in the right lateral ángela
LDL 59, HbA1Ac 5.3.
PMH: atrial fibrillation, prostate CA, DM, DLP, CKD, CaOx nephrolithiasis, R renal agenesis, BPH, glaucoma
PSH: hernia repair, right cataract surgery, cystoscopy, left ureteroscopy with laser lithotripsy, tonsillectomy, prostate biopsy
SH: Resident at independent living, retired, former smoker, no history excessive alcohol use, independent in AIDLs
FH: Mother in her 90s, had dementia, father in his 60s from CHF
All:NKDA
ROS: Constitutional: Negative. Negative for chills, fever and unexpected weight change.
HENT: Positive for hearing.
Eyes: Positive for chronic visual symptoms
Respiratory: Negative for cough, choking and shortness of breath.
Cardiovascular: Negative for chest pain, palpitations and leg swelling.
Gastrointestinal: Negative for abdominal pain and vomiting.
Endocrine: Negative. Negative for cold intolerance.
Genitourinary: Positive for intermittent urinary urgency
Musculoskeletal: Negative for back pain
Skin: Negative for rash.
Allergic/Immunologic: Negative. Negative for immunocompromised state.
Neurological: Positive for imbalance, dysarthria, confusion
General: Well developed. In no acute distress.
Cardio: Regular rate and rhythm without murmur. Extremities are without cyanosis or edema.
Neuro:
Mental Status: Alert, oriented to person, place, month, year. Impaired attention and preserved comprehension. Follows simple exercise consistently. Nonfluent.
Cranial Nerves: OD�3 mm, surgical. OS�3 mm, reactive. EOMs full. Visual cox full to confrontation. No ptosis. No nystagmus. Mild right facial weakness impaired hearing AU. The palate elevated well. SCMs and traps 5/5. Tongue midline.
Moderate dysarthria.
Motor: Normal bulk and tone. No pronator or arm drift. Strength 5/5 throughout except for symmetric proximal leg weakness 4 out of 5 and left right triceps 4/5. No clonus.
Reflexes: 0+ throughout the upper extremities and knees. 0/2 in AJs. Plantar responses flexor bilaterally. Grasp positive the left
Coordination: No dysmetria or tremor.
Gait: deferred
Assessment and Plan:
I. 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
II. Encephalopathy, likely vascular, metabolic, stable
III Distal symmetric polyneuropathy
IV. History of A-FIb
-Continue Telemetry monitoring
-Aspiration precautions
-Dysarthria evaluation
-DAPT for 3 weeks.
-Lipitor 40 mg QHS.
-PT.
-Cardiology consult(A-Fib), can be done as OP
-DVT prophylaxis.
-OP neurology follow up
I personally reviewed all radiology and labs along with past medical records pertinent to current medical problems. Total time spent in patient care is 40 minutes.
Thank you for allowing us to participate in the care of this patient. W Please do not hesitate to contact us with any questions or concerns.
Objective Data
Vital Signs
Temp Pulse Resp BP Pulse Ox
36.9 C 87 16 160/94 94
10/24/24 07:43 10/24/24 07:43 10/24/24 07:43 10/24/24 07:43 10/24/24 07:43
Lab Results
10/24/24 05:13
10/24/24 05:13
Sodium 138 mmol/L (135-145) 03/06/25 05:13
Potassium 4.8 mmol/L (3.5-5.1) 10/24/24 05:13
BUN 35 mg/dl (9-20) H 10/24/24 05:13
Glucose 76 mg/dl (70-99) 10/24/24 05:13
Calcium 9.7 mg/dl (8.4-10.2) 10/24/24 05:13
LDL Cholesterol, Calc 59 mg/dl 10/24/24 05:13
Vitamin B12 695 pg/ml (023-805) 10/23/24 10:11
Patient Allergies
No Known Drug Allergies Allergy (Verified 10/23/24 09:50)
Unknown
Vital Signs and Labs
-
Vital Signs and Labs:
Vital Signs
Temp Pulse Resp BP Pulse Ox
36.9 C 87 16 160/94 94
10/24/24 07:43 10/24/24 07:43 10/24/24 07:43 10/24/24 07:43 10/24/24 07:43
Lab Results
10/24/24 05:13
10/24/24 05:13
Sodium 138 mmol/L (135-145) 10/24/24 05:13
Potassium 4.8 mmol/L (3.5-5.1) 10/24/24 05:13
BUN 35 mg/dl (9-20) H 10/24/24 05:13
Glucose 76 mg/dl (70-99) 10/24/24 05:13
Calcium 9.7 mg/dl (8.4-10.2) 10/24/24 05:13
LDL Cholesterol, Calc 59 mg/dl 10/24/24 05:13
Vitamin B12 695 pg/ml (828-550) 10/23/24 10:11
Medications
-
Medications:
Generic Name Dose Route Start Last Admin
Trade Name Freq PRN Reason Stop Dose Admin
Acetaminophen 650 mg 10/23/24 16:31
Acetaminophen 325 Mg Tablet PO 11/20/24 16:30
Q4HPRN PRN
mild pain
Acetaminophen 650 mg 10/23/24 16:31
Acetaminophen 650 Mg Rectal Suppository RECTAL 11/20/24 16:30
Q4HPRN PRN
FONTANA, mild pain, or temp >100.4F
Aspirin 81 mg 10/24/24 08:00 10/24/24 08:53
Aspirin 81 Mg Chewable Tablet PO 11/21/24 07:59 81 mg
DAILY CHET Administration
Atorvastatin Calcium 40 mg 10/23/24 18:00 10/23/24 17:37
Atorvastatin (Lipitor) 40 Mg Tablet PO 11/20/24 17:59 40 mg
QPM CHET Administration
Cetirizine HCl 10 mg 10/24/24 08:00 10/24/24 08:53
Cetirizine Hcl 10 Mg Tablet PO 11/21/24 07:59 10 mg
DAILY CHET Administration
Clopidogrel Bisulfate 75 mg 10/24/24 09:00 10/24/24 08:55
Clopidogrel 75 Mg Tablet PO 11/13/24 08:01 75 mg
DAILY CHET Administration
Dapagliflozin 10 mg 10/24/24 08:00 10/24/24 08:53
Dapagliflozin (Farxiga) 10 Mg Tablet PO 11/21/24 07:59 10 mg
DAILY CHET Administration
Heparin Sodium 5,000 units 10/23/24 20:00 10/24/24 08:51
Heparin 5,000 Units/Ml 1 Ml Vial SC 11/20/24 19:59 5,000 units
Q12 CHET Administration
Potassium Chloride 10 meq 10/23/24 20:00 10/24/24 08:53
Potassium Chloride 10 Meq Extended Release Tablet PO 11/20/24 19:59 10 meq
BID CHET Administration
Sodium Chloride 0 flush 10/23/24 14:00
Sodium Chloride 0.9% (Flush) Syringe IV 11/20/24 13:59
PER PROTOCOL CHET
Tamsulosin HCl 0.8 mg 10/23/24 22:00 10/23/24 22:17
Tamsulosin 0.4 Mg Capsule PO 11/20/24 21:59 0.8 mg
HS CHET Administration
Vitamin C/Vitamin E 1 cap 10/23/24 20:00 10/24/24 08:53
Vit C/Vit E/Lutein/Min/[place]-3 (Ocuvite) Capsule PO 11/20/24 19:59 1 cap
BID CHET Administration
Home Medications
-
Home Medications
glucosamine [id number]-Aplvnrulc atul 1,500 mg-400 unit-100 mg tablet (Osteo Bi-Flex (5-Loxin)) 2 ea PO DAILY Supplement 09/07/18
atorvastatin 40 mg tablet 40 mg PO QPM High cholesterol 04/22/22
tamsulosin 0.4 mg capsule 0.8 mg PO HS Urinary issue 04/22/22
vit C 250 mg-vit E 90 mg-zinc 40 mg-copper 1 to-zavaob-dtokgu capsule (PreserVision AREDS-2) 1 tab PO BID Supplement 04/22/22
acetaminophen 325 mg tablet (Tylenol) 650 mg PO Q4HPRN PRN mild pain 10/21/23
aspirin 81 mg chewable tablet 81 mg PO DAILY #30 tabs 10/27/23
cetirizine 10 mg tablet (Allergy Relief (cetirizine)) 10 mg PO DAILY 10/23/24
dapagliflozin propanediol 10 mg tablet (Farxiga) 10 mg PO DAILY 10/23/24
leuprolide acetate (6 month) 45 mg intramuscular syringe kit (Lupron Depot) 45 mg IM [id number] 10/23/24
potassium chloride 10 mEq tablet,extended release 10 meq PO BID 10/23/24
--- NOTE | 2024-10-24 14:18 | W.PN.HOSP.TC ---
Today's Communication/Plan
-
Physiatry consult regarding possible transfer to Acute Rehab
Assessment / Plan
Assessment / Plan
Mr. Gabriel Cage is a 89 yo man with hx CVA (), atrophic right kidney, CKD IV, essential HTN, Hyperlipidemia, ex-smoker presents to the ER with bilateral lower extremity weakness. On exam he has left sided pronator drift and per daughter mild
expressive aphasia worse than baseline.
Acute Rt lateral KRYSTLE CVA
MRI brain: Restricted diffusion in the krystle to the right of midline measuring 1.7 x 0.9 cm (series 302, image 72), most compatible with an acute or subacute infarct.
Moderate age-related parenchymal atrophy. Small chronic infarct in the right cerebellar hemisphere. T2/FLAIR hyperintense signal in the white matter of the bilateral cerebral hemispheres, in keeping with the changes of mild to moderate chronic
microangiopathic ischemia. No mass effect, midline shift, or extra axial collection.
Vertebrobasilar dolichoectasia again noted. The vascular flow voids at the skull base are otherwise unremarkable, as far as visualized.
The paranasal sinuses and mastoids are clear. Right ocular lens implant.
IMPRESSION:
1.7 x 0.9 cm acute or subacute infarct in the right lateral krystle. Other chronic findings, as detailed above.
HEAD CT
IMPRESSION:
No acute intracranial abnormality noted.
Mild atrophy. Stable
Mild periventricular small vessel ischemic disease. Stable
Lumbar Spine X-Ray
IMPRESSION:
Multilevel degenerative disc disease. Progressed at all levels.
Several mild L5 compression fracture versus findings due to degenerative disease.
New mild decreased height of T12 and L4 suggesting compression fractures. Age indeterminate.
Stable grade 2 anterolisthesis of L5 on S1.
Severe bony demineralization.
Mild mid lumbar spine dextroscoliosis. Stable
Lower Extremity Weakness
Left Sided Pronator Drift
Hx CVA 2017
Concern for TIA Versus CVA
change to inpatient with stroke noted on MRI
-Neurology consult
-[employer]KER asa/statin
-neuro checks
-MRI ordered
-obtain carotid US/TTE if MRI shows CVA
CKD
-creatinine at baseline
-[employer] Farxiga
BPH
-[employer] MAKER Flomax
DVT PPx Hep subQ
Met with dgt, Destinee. Will change to full admit
she would like pt evaluated for possible transfer to acute rehab, consult placed
DAPT for 3 weeks
Cardio consult regarding possible A.Fib
DNR - confirmed on admission
Venous Foot Pumps
Anticipated Discharge: 24 - 48 hours
Subjective/Interval History
-
Date of Service: October 24, 2024
Pt awake, alert, conversant
Objective Data
-
Labs:
Laboratory Results
10/24/24
05:13
WBC 7.5
Hgb 14.0
Hct 41.1
Plt Count 160
Sodium 138
Potassium 4.8
Chloride 107
Carbon Dioxide 16 L
BUN 35 H
Creatinine 1.9 H
Glucose 76
Calcium 9.7
Vital Signs:
Vital Signs
Temp Pulse Resp BP Pulse Ox
98 F 101 16 140/99 96
10/24/24 11:38 10/24/24 11:38 10/24/24 11:38 10/24/24 11:38 10/24/24 11:38
I&O
10/23/24 10/24/24 10/25/24
06:59 06:59 06:59
Intake Total 240 / 240
Output Total 550 / 550
Balance -310 / -310
Review of Systems
-
History Source: Patient and Family (dgt Destinee arrived later and requested I return for update, many questions moving forward)
Constitutional: Denies Fever
EENT: Reports No Symptoms Reported
Respiratory: Reports No Symptoms
Cardiac: Reports No Symptoms
Abdomen/GI: Reports No Symptoms
Genitourinary: Reports No Symptoms
Musculoskeletal: Reports No Symptoms
Neuro: Denies Headache, Weakness or Numbness
Physical Exam
-
General: Well Developed, Well Nourished and No Apparent Distress
HEENT: Normocephalic, Atraumatic and Moist Mucous Membranes
Respiratory: Clear to Auscultation; Negative Wheezes, Rales or Rhonchi
Cardiac: Regular Rhythm and S1/S2
GI: Soft, Nontender and Nondistended
Musculoskeletal: No Clubbing, No Cyanosis and No Edema
Neuro: Awake, Alert and Oriented
[2024-10-24] MEDS: LIPITOR 40 MG PO (18:15)
[2024-10-24] MEDS: FLOMAX 0.8 MG PO (21:19)
[2024-10-25] VITALS (8 sets, daily range): BP systolic 130–157; BP diastolic 86–96; PULSE 69–74; O2SAT 93–94
[2024-10-25] MEDS: ZYRTEC 5 MG PO (07:37)
[2024-10-25] MEDS: PLAVIX 75 MG PO (07:37)
[2024-10-25] MEDS: LOW STRENGTH ASPIRIN 81 MG PO (07:37)
[2024-10-25] MEDS: FARXIGA 10 MG PO (07:37)
[2024-10-25] MEDS: KCL 10 MEQ PO ×2 (07:37→20:19)
[2024-10-25] MEDS: HEPARIN 5000 UNITS SC ×2 (07:37→20:19)
[2024-10-25] MEDS: OCUVITE SOFTGEL 1 CAP PO ×2 (07:37→20:19)
--- NOTE | 2024-10-25 09:32 | PTOTSP ---
SPEECH THERAPY SPEECH/LANGUAGE/COGNITIVE COMMUNICATION EVALUATION:
Patient exhibits moderate speech impairments (moderate dysarthria), mild expressive/receptive language impairments, and moderate cognitive communication impairments 2/2 acute CVA. Greatest deficits noted in the following areas: STM, processing
speed, executive functioning, visuospatial skills, verbal expression/fluency, and word finding. Patient additionally with history of CVA in 2018. Patient reported feeling below baseline level of functioning at this time. MOCA version 8.1 was
administered. Patient achieved a score of 20/30, indicating below normal level (greater than or equal to 26/30). Subscores as follows: Visuospatial/Executive functionin/5. Namin/3. Attention: 6/6. Language: 1/3. Abstraction: 2/2. Delayed
Recall: 0/5. Orientation: 6/6. ST services are recommended at the acute care level and continued upon discharge. Patient would benefit from intensive ST services in the inpatient rehab setting.
--- NOTE | 2024-10-25 12:59 | PTOTSP ---
SPEECH THERAPY VIDEOFLUOROSCOPIC SWALLOWING STUDY:
Patient exhibits mild-moderate oropharyngeal dysphagia, likely acute on chronic related to acute lateral Right pontine CVA. Patient exhibited NO aspiration during study. Upper laryngeal penetration was noted with thin, mildly-thick, and moderately
thick liquids, all of which were consistently ejected from airway (PAS 2). Swallow onset was consistently delayed across consistencies, with initiation noted at level of pyriform sinus. Patient remains at risk for aspiration and related
complications given acute pontine CVA and delayed swallow initiation. However, given stable respiratory status and mentation (able to repeat and follow recommended aspiration precautions), patient appears safe to continue current oral diet at this
time with aspiration precautions in place. Recommend Regular texture solids, thin liquids. Medications whole in puree if small (cut if large), or crushed in puree if needed. Aspiration precautions. Speech therapy to follow at the acute care level to
assess diet tolerance, modify as appropriate, provide continued diagnostic swallow therapy as appropriate, and provide continued education regarding aspiration risks/precautions.
RECOMMEND:
1) continue Regular texture solids, thin liquids
2) meds whole if small (cut if large) in puree or crushed in puree as needed
3) Aspiration precautions: Upright positioning; Supervision to monitor for signs of aspiration and ensure use of safe swallow strategies; Small sips/bites; Slow rate; Overchew solids; Monitor for signs of aspiration; Alternate textures; Extra dry
swallows intermittently throughout meal; D/c oral diet if ANY decline in mental/respiratory status
4) Consider diet downgrade if any concern for aspiration and/or diet tolerance
5) Oral care 3x/day and increased mobility as able/tolerated to reduce risk for nosocomial infection
6) ST to follow to provide continued education regarding aspiration risks/precautions, ensure adequate diet tolerance and modify as appropriate, and provide swallow strength training
--- NOTE | 2024-10-25 13:09 | W.PN.HOSP.TC ---
Addendum entered and electronically signed by Adrian Du MD 10/25/24 13:32:
reviewed old records, pt had been on Plavix and was never on OAC
Original Note:
Today's Communication/Plan
-
Physiatry consult
Assessment / Plan
Assessment / Plan
Mr. Gabriel Cage is a 89 yo man with hx CVA (), atrophic right kidney, CKD IV, essential HTN, Hyperlipidemia, ex-smoker presents to the ER with bilateral lower extremity weakness. On exam he has left sided pronator drift and per daughter mild
expressive aphasia worse than baseline.
Acute Rt lateral KRYSTLE CVA
MRI brain: Restricted diffusion in the krystle to the right of midline measuring 1.7 x 0.9 cm (series 302, image 72), most compatible with an acute or subacute infarct.
Moderate age-related parenchymal atrophy. Small chronic infarct in the right cerebellar hemisphere. T2/FLAIR hyperintense signal in the white matter of the bilateral cerebral hemispheres, in keeping with the changes of mild to moderate chronic
microangiopathic ischemia. No mass effect, midline shift, or extra axial collection.
Vertebrobasilar dolichoectasia again noted. The vascular flow voids at the skull base are otherwise unremarkable, as far as visualized.
The paranasal sinuses and mastoids are clear. Right ocular lens implant.
IMPRESSION:
1.7 x 0.9 cm acute or subacute infarct in the right lateral krystle. Other chronic findings, as detailed above.
HEAD CT
IMPRESSION:
No acute intracranial abnormality noted.
Mild atrophy. Stable
Mild periventricular small vessel ischemic disease. Stable
Lumbar Spine X-Ray
IMPRESSION:
Multilevel degenerative disc disease. Progressed at all levels.
Several mild L5 compression fracture versus findings due to degenerative disease.
New mild decreased height of T12 and L4 suggesting compression fractures. Age indeterminate.
Stable grade 2 anterolisthesis of L5 on S1.
Severe bony demineralization.
Mild mid lumbar spine dextroscoliosis. Stable
Lower Extremity Weakness
Left Sided Pronator Drift
Hx CVA 2018
Worsening felt due to CVA
-Neurology consult
-[employer] MANAGER asa/statin
-neuro checks
-MRI ordered
-carotid US: Negative for flow-limiting carotid stenosis. By velocity criteria, any internal carotid artery stenosis present is in the range of 0-49%.
CKD
-creatinine at baseline
-[employer] MANAGER Farxiga
BPH
-[employer] MANAGER Flomax
DVT PPx Hep subQ
Met with Destinee mc. Will change to full admit
she would like pt evaluated for possible transfer to acute rehab, consult placed
DAPT for 3 weeks
Cardio consult regarding possible A.Fib
Video Swallow requested by Speech and was ordered
DNR - confirmed on admission
Venous Foot Pumps
Anticipated Discharge: 24 - 48 hours
Subjective/Interval History
-
Date of Service: October 25, 2024
Awake, alert
Objective Data
-
Vital Signs:
Vital Signs
Temp Pulse Resp BP Pulse Ox
97.9 F 84 16 157/96 96
10/25/24 11:03 10/25/24 11:03 10/25/24 11:03 10/25/24 11:03 10/25/24 11:03
I&O
10/24/24 10/25/24 10/26/24
06:59 06:59 06:59
Intake Total 240 / 240 540 / 540
Output Total 550 / 550 300 / 300 425 / 425
Balance -310 / -310 240 / 240 -425 / -425
Review of Systems
-
History Source: Patient and Family (dgelidia Felipe in room)
Constitutional: Denies Fever
EENT: Reports No Symptoms Reported
Respiratory: Reports No Symptoms
Cardiac: Reports No Symptoms
Abdomen/GI: Reports No Symptoms
Genitourinary: Reports No Symptoms
Musculoskeletal: Reports No Symptoms
Neuro: Denies Headache, Weakness or Numbness
Physical Exam
-
General: Well Developed, Well Nourished and No Apparent Distress
HEENT: Normocephalic, Atraumatic and Moist Mucous Membranes
Respiratory: Clear to Auscultation; Negative Wheezes, Rales or Rhonchi
Cardiac: Regular Rhythm and S1/S2
GI: Soft, Nontender and Nondistended
Musculoskeletal: No Clubbing, No Cyanosis and No Edema
Neuro: Awake, Alert and Oriented
--- NOTE | 2024-10-25 16:11 | CM ---
PT OT said acute rehab .
Pt wants home with Vn
Requested PMand R consult from .
PLAN will depend of evals consults
--- NOTE | 2024-10-25 17:00 | CON.MD ---
Documented by User: Joselin Moran PA-C 10/25/24 17:23
Consultation - Medical
-
Referring provider
Chief Complaint:�CVA
�
History of Present Illness:��Mr. Gabriel Cage is a 89 year old right-handed man with PMH of ( CVA (, atrial fibrillation, prostate CA, DM, atrophic right kidney, CKD IV, essential HTN, Hyperlipidemia, ex-smoker) who presented to [place]
[facility] on 10/23/2024 with encephalopathy and ambulatory dysfunction. He got up to use the bathroom, stumbling both to and from the restroom the evening prior. The next morning, unable to stand up from a seated position on the side of his bed.
He reported slower speech and denied sensory symptoms in the feet, diplopia, dyspnea, back pain, falls. He was noted to be confused by his daughter. Mild expressive aphasia worse than baseline. Admits to worsening of dysarthria and denied any
unilateral weakness or change in vision. MRI of Head:1.7 x 0.9 cm acute or subacute infarct in the right lateral ángela. Other chronic findings, as detailed above.
EK10/23/24 sinus bradycardia with first degree of AV block with premature atrial complexes. Incomplete right bundle branch block.
CT head wo contrast�no acute abnormalities, diffuse atrophy.
Brain MRI [place](10/23/2024) 1.7 x 0.9 cm acute or subacute infarct in the right lateral ángela
Carotid Doppler US-no hemodynamically significant stenosis. Any internal carotid artery stenosis present is in the range of 0-49%. TTE-unremarkable.
TTE-unremarkable.
Echo-10/23/24
Normal left ventricular chamber size. Normal left ventricular systolic
function. Left ventricular ejection fraction is 50-55% by visual assessment.
Normal regional wall motion.
Normal right ventricular size and function.
Mitral annular calcification. Mild to moderate mitral regurgitation. Possible
mild posterior leaflet prolapse.
Neurology recommended DAPT for 3 weeks. Patient was previously on Plavix based on old record review and never was on anticoag. Speech requesting video swallow test.
�
Past Medical History:��CVA (), atrophic right kidney, CKD IV, essential HTN, Hyperlipidemia, ex-smoker, atrial fibrillation, prostate CA, DM,
Procedure History:��hernia repair, right cataract surgery, cystoscopy, left ureteroscopy with laser lithotripsy, tonsillectomy, prostate biopsy
Family History:��Mother in her 90s, had dementia, father in his 60s from CHF�������������
�
Social History:��
Functional Level Premorbidly:�Independent with all activities��, uses walker for long distances only, has an aide visit once every 2 weeks
Functional Level at Previous Facility: Eating, grooming�min assist, toileting�dependent, upper extremity self-care�max assist, lower extremity self-care dependent, bed mobility-supine to sit�min assist, sit to supine�max assist, transfer�mod assist,
sidesteps 1 foot to edge of bed with rolling walker�mod assist of 2
�
Tobacco:�ex-smoker
Alcohol:�Denies��
Drug use:�Denies��
�
Lives With:��independent living, alone
24-hour assistance available:��
Number of floors:�1
# steps to enter:��0
# steps to second floor:�None
Potential First Floor Set Up:�Yes
Driving:�Yes
Occupation:�Retired
�
Allergies:��
Allergy/AdvReac Type Severity Reaction Status Date / Time
No Known Drug Allergies Allergy Unknown Verified 10/23/24 09:50
�
Review of Systems:��
Constitutional: (x) Normal _
Eye: (x) Normal _
Ear/Nose/Throat: (x) Normal _
Respiratory: (x) Normal _
Cardiovascular: (x) abNormal _A-Fib
Gastrointestinal: (x) Normal _
Genitourinary: (x) abNormal _CKD, urinary retention , BPH- prostate ca
Musculoskeletal: (x) Normal _
Integumentary: (x) Normal _
Neurologic: (x) abNormal _CVA, dysarthria
Psychiatric: (x) Normal _
Endocrine: (x) Normal _
Hematologic/Lymphatic: (x) Normal _
Allergic/Immunologic: (x) Normal _
�
Medications:��
Active Current Visit Medication List
Category Date Time Status
Acetaminophen [Tylenol/Feverall] Med 10/23/24 16:31 Active
650 mg RECTAL Q4HPRN PRN
Acetaminophen [Tylenol] Med 10/23/24 16:31 Active
650 mg PO Q4HPRN PRN
Aspirin Chewable [Low Strength Aspirin] Med 10/24/24 08:00 Active
81 mg PO DAILY
Atorvastatin [Lipitor] Med 10/23/24 18:00 Active
40 mg PO QPM
Cetirizine HCl [Zyrtec] Med 10/24/24 11:57 Active
5 mg PO DAILY
Clopidogrel Bisulfate [Plavix] Med 10/24/24 09:00 Active
75 mg PO DAILY
Dapagliflozin [Farxiga] Med 10/24/24 08:00 Active
10 mg PO DAILY
Flush (0.9% Sodium Chloride) [Flush (Nss)] Med 10/23/24 14:00 Active
See Dose Instructions IV PER PROTOCOL
Heparin Med 10/23/24 20:00 Active
5,000 units SC Q12
Potassium Chloride [KCl] Med 10/23/24 20:00 Active
10 meq PO BID
Tamsulosin [Flomax] Med 10/23/24 22:00 Active
0.8 mg PO HS
Vit C/Vit E/Lutein/Min/Wayan-3 [Ocuvite Softgel] Med 10/23/24 20:00 Active
1 cap PO BID
�
Vitals:��
Temp Pulse Resp BP Pulse Ox
98.1 F 88 16 130/92 97
10/25/24 15:06 10/25/24 15:06 10/25/24 15:06 10/25/24 15:06 10/25/24 15:06
Height 5 ft 11 in
Actual Weight 81.703 kg
Body Mass Index (BMI) 25.1
�
Physical Exam:��
General Appearance/Observation: Well-developed, well-nourished individual in no apparent distress.��
Pain/Comfort Assessment: Denies��
Mood/Affect: Appropriate��
�
Integumentary/Operative Site:��
�� Pressure Ulcer evaluation: absent over heels��
��
�� Other Type of Wound: absent��
��
Eyes: Conjunctiva/Lids: normal���� Pupils: pupils equal round and reactive to light and Accommodation��
Ears/Nose/Throat: oral mucosa moist,� throat clear.�������������Lips/Teeth/Gums: normal��
Neck: No muscle spasm or tenderness��
Cardiovascular: Heart: regular, no murmur��
Pulses: dorsalis pedis 2+ bilaterally��
Respiratory: Respiratory Effort/Chest Expansion: normal.�������Auscultation: Clear to auscultation bilaterally��
Gastrointestinal: abdomen not tender, no distension, normal abdominal bowel sounds
Genitourinary: No Arellano��
Extremities:�Edema: None�Cyanosis: None�Trophic�changes: spider veins, venous changes
��
Neurology Exam:
Orientation: Alert, Oriented to self, Time, Place��
Memory: Intact for immediate medical concerns
Comprehension: Slow processing
Two step command: Intact
Naming: Intact
Cranial Nerves:
�� CNII:�Pupillary light reflex: Intact����Visual Field: Impaired on the left, right better but saw 3 instead of 4 fingers
�� CN III, IV, : Extraocular muscles: Intact��
�� CN V:�Facial Sensation�at�Forehead: Intact ,�Maxilla: Intact,�Mandible: Intact
�� CN VII:�Facial movement: slight Weakness on the right, more noticeable around the mouth
�� CN VIII:�Hearing: impaired
�� CN IX/X:�Speech & swallow: dysarthria�Position of Uvula: Midline
�� CN XI:�Shoulder shrug: slight weakness on the left
�� CN XII:�Tongue protrusion: Midline
Sensory:
�� Light touch: Intact in bilateral upper and lower extremities
��
�
Reflexes:
�� Biceps: absent on right, 1/4 left
�� Brachioradialis:absent bilaterally
�� Triceps: absent bilaterally
�� Patellar: absent bilaterally
�� Achilles: absent bilaterally
�� Babinski: no response on right, upward on left
�� Clonus: NT
�� Caesar: Negative bilaterally��
Cerebellar: Dysmetria/Ataxia: None��
Musculoskeletal:
Motor: (Manual muscle scale 0-5)��
Muscle SA EF WE EE FF FA HF KE DF EHL PF
Right� 5 5 5 5 5 5 5 5 5 5
Left 5 5 5 4 4 4 4 4 4 4
�
Tone: Normal in all extremities��
Range of Motion: Passively within normal limits in all extremities��
�
Lab Results:
Labs
WBC 7.5 10^3/uL (4.8-10.8) 10/24/24 05:13
RBC 4.04 10^6/uL (4.70-6.10) L 10/24/24 05:13
Hgb 14.0 g/dL (13.0-18.0) 10/24/24 05:13
Hct 41.1 % (39.0-52.0) 10/24/24 05:13
MCV 101.7 fL (80.0-94.0) H 10/24/24 05:13
MCH 34.7 pg (27.0-31.0) H 10/24/24 05:13
MCHC 34.1 g/dL (33.0-37.0) 10/24/24 05:13
RDW 13.3 % (11.5-14.5) 10/24/24 05:13
Plt Count 160 10^3/uL (130-400) 10/24/24 05:13
MPV 10.1 fL (7.4-10.4) 10/24/24 05:13
Abs Immat Gran (auto) 0.0 10^3/uL (0-0.05) 10/23/24 10:11
Absolute Neuts (auto) 4.3 10^3/uL (1.4-6.5) 10/23/24 10:11
Absolute Lymphs (auto) 1.3 10^3/uL (1.2-3.4) 10/23/24 10:11
Absolute Monos (auto) 0.5 10^3/uL (0.1-0.6) 10/23/24 10:11
Absolute Eos (auto) 0.3 10^3/uL (0-0.7) 10/23/24 10:11
Absolute Basos (auto) 0.0 10^3/uL (0-0.2) 10/23/24 10:11
Immature Gran % 0.3 % (0-0.5) 10/23/24 10:11
Neutrophils % 67.7 % (42.2-75.2) 10/23/24 10:11
Lymphocytes % 19.7 % (20.5-51.1) L 10/23/24 10:11
Monocytes % 7.8 % (1.7-9.3) 10/23/24 10:11
Eosinophils % 3.9 % (0-6) 10/23/24 10:11
Basophils % 0.6 % (0-2) 10/23/24 10:11
Nucleated RBC % 0 % (-) 10/23/24 10:11
Sodium 138 mmol/L (135-145) 10/24/24 05:13
Potassium 4.8 mmol/L (3.5-5.1) 10/24/24 05:13
Chloride 107 mmol/L (98-107) 10/24/24 05:13
Carbon Dioxide 16 mmol/L (22-30) L 10/24/24 05:13
BUN 35 mg/dl (9-20) H 10/24/24 05:13
Creatinine 1.9 mg/dL (0.7-1.3) H 10/24/24 05:13
Estimated Creat Clear 28 ml/min 10/24/24 05:13
eGFR 33.30 10/24/24 05:13
Glucose 76 mg/dl (70-99) 10/24/24 05:13
Hemoglobin A1c 5.3 % (4.0-5.6) 10/24/24 05:13
Calcium 9.7 mg/dl (8.4-10.2) 10/24/24 05:13
Magnesium 2.4 mg/dl (1.6-2.3) H 10/24/24 05:13
Total Bilirubin 1.1 mg/dl (0.2-1.3) 10/23/24 10:11
AST 19 U/L (17-59) 10/23/24 10:11
ALT 15 U/L (0-50) 10/23/24 10:11
Alkaline Phosphatase 132 U/L (38-126) H 10/23/24 10:11
Total Protein 6.0 g/dl (6.3-8.2) L 10/23/24 10:11
Albumin 3.5 g/dl (3.5-5.0) 10/23/24 10:11
Triglycerides 92 mg/dl (10-149) 10/24/24 05:13
Total Cholesterol 141 mg/dl (50-199) 10/24/24 05:13
LDL Cholesterol, Calc 59 mg/dl 10/24/24 05:13
VLDL Cholesterol, Calc 18 mg/dl (0-30) 10/24/24 05:13
HDL Cholesterol 64 mg/dl 10/24/24 05:13
Vitamin B12 695 pg/ml (239-931) 10/23/24 10:11
TSH 2.15 uIU/ml (0.47-4.68) 10/23/24 10:11
Urine Color Yellow 10/23/24 10:11
Urine Clarity Clear (Clear) 10/23/24 10:11
Urine pH 6.0 (5.0-9.0) 10/23/24 10:11
Ur Specific [place] 1.015 (<1.030) 10/23/24 10:11
Urine Ketones Negative (Negative) 10/23/24 10:11
Ur Occult Blood Reflex 1+ (Negative) A 10/23/24 10:11
Urine Nitrite (Reflex) Negative (Negative) 10/23/24 10:11
Urine Bilirubin Negative (Negative) 10/23/24 10:11
Urine Urobilinogen Negative (Neg - 1+) 10/23/24 10:11
Leukocyte Esterase Rfl Negative (Negative) 10/23/24 10:11
Urine RBC 0-2 /HPF (0-2) 10/23/24 10:11
Urine WBC (Reflex) 0-2 /HPF (0-5) 10/23/24 10:11
Ur Squamous Epith Cells 3-5 /LPF (Few) 10/23/24 10:11
Urine Bacteria (Reflex) Few (Negative) A 10/23/24 10:11
Urine Glucose 4+ (Negative) A 10/23/24 10:11
Urine Albumin (Reflex) 2+ (Neg - Trace) A 10/23/24 10:11
SARS-CoV-2 Antigen Negative (Negative) 10/23/24 12:22
��
Diagnostic Results: As per HPI��
MRI brain: Restricted diffusion in the ángela to the right of midline measuring 1.7 x 0.9 cm (series 302, image 72), most compatible with an acute or subacute infarct.
Moderate age-related parenchymal atrophy. Small chronic infarct in the right cerebellar hemisphere. T2/FLAIR hyperintense signal in the white matter of the bilateral cerebral hemispheres, in keeping with the changes of mild to moderate chronic
microangiopathic ischemia. No mass effect, midline shift, or extra axial collection.
�
HEAD CT
IMPRESSION:
No acute intracranial abnormality noted.
Mild atrophy. Stable
Mild periventricular small vessel ischemic disease. Stable
Lumbar Spine X-Ray
IMPRESSION:
Multilevel degenerative disc disease. Progressed at all levels.
Several mild L5 compression fracture versus findings due to degenerative disease.
New mild decreased height of T12 and L4 suggesting compression fractures. Age indeterminate.
Stable grade 2 anterolisthesis of L5 on S1.
Severe bony demineralization.
Mild mid lumbar spine dextroscoliosis. Stable
Echo 10/23/24
Normal left ventricular chamber size. Normal left ventricular systolic
function. Left ventricular ejection fraction is 50-55% by visual assessment.
Normal regional wall motion.
Normal right ventricular size and function.
Mitral annular calcification. Mild to moderate mitral regurgitation. Possible
mild posterior leaflet prolapse.
Aortic sclerosis without stenosis. Mild aortic regurgitation.
�
Assessment: 89-year-old male with slurred speech, legs and facial weakness found to have acute/subacute right lateral ángela infarct
�
Plan�
Acute inpatient rehab with PT/OT/SW/RN/psychology to increase independence with ADLs, improve balance, coordination, endurance, strength, mobility, community reintegration, decreased burden of care on others and family education.��
�
CVA: acute or subacute infarct in the right lateral ángela. Secondary prophylaxis with aspirin And Plavix for 21 days (through 11/13/2024) with continuation of aspirin 81 mg�long-term, statin, and blood pressure control (SBP less than 180 and
diastolic less than 100 to participate with therapy for ischemic stroke). Continue to monitor neurologic status.��
Left nondominant hemiparesis: High risk for falls and sliding out of chair/bed. Safety reinforced.��
- Avoid using affected arm to help lift or pull patient as this will cause trauma to the shoulder.
Dysarthria: speech evaluation��
HTN: not on medicine
HLD: Atorvastatin 40 mg
Coronary artery disease�: Aspirin, statin,
Atrial fibrillation:�Plavix, not on rate control medications.����Outpatient cardiology consult����������������������������������������
CKD: creatinine at baseline. (1.9) Farxiga
DM II: Accu-Cheks, insulin sliding scale, Farxiga
Psych: Psychology consult.� Monitor mood, adjust medications as needed.��
Skin: monitor for pressure sores/rashes/lesions.��
FEN: Cholesterol-lowering diet.��
Pain/Lumbar disc displacement, DJD: acetaminophen as needed.��
Bowel: Colace and Senna, PRN bisacodyl.��
Bladder/BPH/history of prostate cancer: Time void, PVRs, PRN straight cath.��Flomax 0.8 at the time
GI Prophylaxis: Pantoprazole��
DVT Prophylaxis: Mechanical and heparin 5000 units SQ every 12 hours
Pulmonary: Incentive spirometry��
Safety: Continue to reinforce assistance with all transfers.��
Code Status:� DNR��
Dispo�(date/plan/equipment needs): Home with family care.��
Recommendations summary: Previously independent male with slurred speech, leg weakness and facial weakness, dysarthria found to have acute/subacute infarct of the right lateral ángela with subsequent ambulatory and ADL dysfunction. He would benefit
from acute inpatient rehabilitation for to increase independence with ADLs, improve balance, coordination, endurance, strength, mobility, community reintegration, decreased burden of care on others and family
Discharge destination: Acute inpatient rehabilitation
CVA: acute or subacute infarct in the right lateral ángela. Secondary prophylaxis with aspirin And Plavix for 21 days (through 11/13/2024) with continuation of aspirin 81 mg�long-term, statin, and blood pressure control (SBP less than 180 and
diastolic less than 100 to participate with therapy for ischemic stroke). Continue to monitor neurologic status.��
Left nondominant hemiparesis: High risk for falls and sliding out of chair/bed. Safety reinforced.��
- Avoid using affected arm to help lift or pull patient as this will cause trauma to the shoulder.
Safety: Continue to reinforce assistance with all transfers.��
Pulmonary: Incentive spirometry��
Thank you for allowing me to care for your patient. Please contact me with any questions or concerns.

Documented by User: Marc Adair MD 10/25/24 21:02
Consultation - Medical
-
Referring provider: Dr. Adrian Du
Chief Complaint:�CVA
�
History of Present Illness:��Mr. Gabriel Cage is a 89 year old right-handed man with PMH of ( CVA (, atrial fibrillation, prostate CA, DM, atrophic right kidney, CKD IV, essential HTN, Hyperlipidemia, ex-smoker) who presented to [place] [facility] on 10/23/2024 with encephalopathy and ambulatory dysfunction. He got up to use the bathroom, stumbling both to and from the restroom the evening prior. The next morning, unable to stand up from a seated position on the side of his bed.
He reported slower speech and denied sensory symptoms in the feet, diplopia, dyspnea, back pain, falls. He was noted to be confused by his daughter. Mild expressive aphasia worse than baseline. Admits to worsening of dysarthria and denied any
unilateral weakness or change in vision. MRI of Head:1.7 x 0.9 cm acute or subacute infarct in the right lateral ángela. Other chronic findings, as detailed above.
EK10/23/24 sinus bradycardia with first degree of AV block with premature atrial complexes. Incomplete right bundle branch block.
CT head wo contrast�no acute abnormalities, diffuse atrophy.
Brain MRI [place](10/23/2024) 1.7 x 0.9 cm acute or subacute infarct in the right lateral ángela
Carotid Doppler US-no hemodynamically significant stenosis. Any internal carotid artery stenosis present is in the range of 0-49%. TTE-unremarkable.
TTE-unremarkable.
Echo-10/23/24
Normal left ventricular chamber size. Normal left ventricular systolic
function. Left ventricular ejection fraction is 50-55% by visual assessment.
Normal regional wall motion.
Normal right ventricular size and function.
Mitral annular calcification. Mild to moderate mitral regurgitation. Possible
mild posterior leaflet prolapse.
Neurology recommended DAPT for 3 weeks. Patient was previously on Plavix based on old record review and never was on anticoag. Speech requesting video swallow test.
�
Past Medical History:��CVA (), atrophic right kidney, CKD IV, essential HTN, Hyperlipidemia, ex-smoker, atrial fibrillation, prostate CA, DM,
Procedure History:��hernia repair, right cataract surgery, cystoscopy, left ureteroscopy with laser lithotripsy, tonsillectomy, prostate biopsy
Family History:��Mother in her 90s, had dementia, father in his 60s from CHF�������������
�
Social History:��
Functional Level Premorbidly:�Independent with all activities��, uses walker for long distances only, has an aide visit once every 2 weeks
Functional Level at Previous Facility: Eating, grooming�min assist, toileting�dependent, upper extremity self-care�max assist, lower extremity self-care dependent, bed mobility-supine to sit�min assist, sit to supine�max assist, transfer�mod assist,
sidesteps 1 foot to edge of bed with rolling walker�mod assist of 2
�
Tobacco:�ex-smoker
Alcohol:�Denies��
Drug use:�Denies��
�
Lives With:��independent living, alone
24-hour assistance available:��No
Number of floors:�1
# steps to enter:��0
# steps to second floor:�None
Potential First Floor Set Up:�Yes
Driving:�Yes
Occupation:�Retired
�
Allergies:��
Allergy/AdvReac Type Severity Reaction Status Date / Time
No Known Drug Allergies Allergy Unknown Verified 10/23/24 09:50
�
Review of Systems:��
Constitutional: (x) abNormal _tired
Eye: (x) Normal _
Ear/Nose/Throat: (x) Normal _
Respiratory: (x) Normal _
Cardiovascular: (x) abNormal _A-Fib
Gastrointestinal: (x) Normal _
Genitourinary: (x) abNormal _CKD, urinary retention , BPH- prostate ca
Musculoskeletal: (x) Normal _
Integumentary: (x) Normal _
Neurologic: (x) abNormal _CVA, dysarthria
Psychiatric: (x) Normal _
Endocrine: (x) Normal _
Hematologic/Lymphatic: (x) Normal _
Allergic/Immunologic: (x) Normal _
�
Medications:��
Active Current Visit Medication List
Category Date Time Status
Acetaminophen [Tylenol/Feverall] Med 10/23/24 16:31 Active
650 mg RECTAL Q4HPRN PRN
Acetaminophen [Tylenol] Med 10/23/24 16:31 Active
650 mg PO Q4HPRN PRN
Aspirin Chewable [Low Strength Aspirin] Med 10/24/24 08:00 Active
81 mg PO DAILY
Atorvastatin [Lipitor] Med 10/23/24 18:00 Active
40 mg PO QPM
Cetirizine HCl [Zyrtec] Med 10/24/24 11:57 Active
5 mg PO DAILY
Clopidogrel Bisulfate [Plavix] Med 10/24/24 09:00 Active
75 mg PO DAILY
Dapagliflozin [Farxiga] Med 10/24/24 08:00 Active
10 mg PO DAILY
Flush (0.9% Sodium Chloride) [Flush (Nss)] Med 10/23/24 14:00 Active
See Dose Instructions IV PER PROTOCOL
Heparin Med 10/23/24 20:00 Active
5,000 units SC Q12
Potassium Chloride [KCl] Med 10/23/24 20:00 Active
10 meq PO BID
Tamsulosin [Flomax] Med 10/23/24 22:00 Active
0.8 mg PO HS
Vit C/Vit E/Lutein/Min/Wayan-3 [Ocuvite Softgel] Med 10/23/24 20:00 Active
1 cap PO BID
�
Vitals:��
Temp Pulse Resp BP Pulse Ox
98.1 F 88 16 130/92 97
10/25/24 15:06 10/25/24 15:06 10/25/24 15:06 10/25/24 15:06 10/25/24 15:06
Height 5 ft 11 in
Actual Weight 81.703 kg
Body Mass Index (BMI) 25.1
�
Physical Exam:��
General Appearance/Observation: Well-developed, well-nourished male in no apparent distress.��
Pain/Comfort Assessment: Denies��
Mood/Affect: Appropriate��
�
Integumentary/Operative Site:��
�� Pressure Ulcer evaluation: absent over heels��
Eyes: Conjunctiva/Lids: normal���� Pupils: pupils equal round and reactive to light and Accommodation��
Ears/Nose/Throat: oral mucosa moist,� throat clear.�������������Lips/Teeth/Gums: normal��
Neck: No muscle spasm or tenderness��
Cardiovascular: Heart: regular, no murmur��
Pulses: dorsalis pedis 2+ bilaterally��
Respiratory: Respiratory Effort/Chest Expansion: normal.�������Auscultation: Clear to auscultation bilaterally��
Gastrointestinal: abdomen not tender, no distension, normal abdominal bowel sounds
Genitourinary: No Arellano��
Extremities:�Edema: None�Cyanosis: None�Trophic�changes: spider veins, venous changes
��
Neurology Exam:
Orientation: Alert, Oriented to self, Time, Place��
Memory: Intact for immediate medical concerns
Comprehension: Slow processing
Two step command: Intact
Naming: Intact
Cranial Nerves:
�� CNII:�Pupillary light reflex: Intact����Visual Field: Impaired on the left, right better but saw 3 instead of 4 fingers
�� CN III, IV, : Extraocular muscles: Intact��
�� CN V:�Facial Sensation�at�Forehead: Intact ,�Maxilla: Intact,�Mandible: Intact
�� CN VII:�Facial movement: slight Weakness on the right, more noticeable around the mouth
�� CN VIII:�Hearing: impaired
�� CN IX/X:�Speech & swallow: dysarthria�Position of Uvula: Midline
�� CN XI:�Shoulder shrug: slight weakness on the left
�� CN XII:�Tongue protrusion: Midline
Sensory:
�� Light touch: Intact in bilateral upper and lower extremities
��
�
Reflexes:
�� Biceps: absent on right, 1/4 left
�� Brachioradialis:absent bilaterally
�� Triceps: absent bilaterally
�� Patellar: absent bilaterally
�� Achilles: absent bilaterally
�� Babinski: no response on right, upward on left
�� Clonus: None
�� Caesar: Negative bilaterally��
Cerebellar: Dysmetria/Ataxia: None��
Musculoskeletal:
Motor: (Manual muscle scale 0-5)��
Muscle SA EF WE EE FF FA HF KE DF EHL PF
Right� 5 5 5 5 5 5 5 5 5 5
Left 5 5 5 4 4 4 4 4 4 4
�
Tone: Normal in all extremities��
Range of Motion: Passively within normal limits in all extremities��
�
Lab Results:
Labs
WBC 7.5 10^3/uL (4.8-10.8) 10/24/24 05:13
RBC 4.04 10^6/uL (4.70-6.10) L 10/24/24 05:13
Hgb 14.0 g/dL (13.0-18.0) 10/24/24 05:13
Hct 41.1 % (39.0-52.0) 10/24/24 05:13
MCV 101.7 fL (80.0-94.0) H 10/24/24 05:13
MCH 34.7 pg (27.0-31.0) H 10/24/24 05:13
MCHC 34.1 g/dL (33.0-37.0) 10/24/24 05:13
RDW 13.3 % (11.5-14.5) 10/24/24 05:13
Plt Count 160 10^3/uL (130-400) 10/24/24 05:13
MPV 10.1 fL (7.4-10.4) 10/24/24 05:13
Abs Immat Gran (auto) 0.0 10^3/uL (0-0.05) 10/23/24 10:11
Absolute Neuts (auto) 4.3 10^3/uL (1.4-6.5) 10/23/24 10:11
Absolute Lymphs (auto) 1.3 10^3/uL (1.2-3.4) 10/23/24 10:11
Absolute Monos (auto) 0.5 10^3/uL (0.1-0.6) 10/23/24 10:11
Absolute Eos (auto) 0.3 10^3/uL (0-0.7) 10/23/24 10:11
Absolute Basos (auto) 0.0 10^3/uL (0-0.2) 10/23/24 10:11
Immature Gran % 0.3 % (0-0.5) 10/23/24 10:11
Neutrophils % 67.7 % (42.2-75.2) 10/23/24 10:11
Lymphocytes % 19.7 % (20.5-51.1) L 10/23/24 10:11
Monocytes % 7.8 % (1.7-9.3) 10/23/24 10:11
Eosinophils % 3.9 % (0-6) 10/23/24 10:11
Basophils % 0.6 % (0-2) 10/23/24 10:11
Nucleated RBC % 0 % (-) 10/23/24 10:11
Sodium 138 mmol/L (135-145) 10/24/24 05:13
Potassium 4.8 mmol/L (3.5-5.1) 10/24/24 05:13
Chloride 107 mmol/L (98-107) 10/24/24 05:13
Carbon Dioxide 16 mmol/L (22-30) L 10/24/24 05:13
BUN 35 mg/dl (9-20) H 10/24/24 05:13
Creatinine 1.9 mg/dL (0.7-1.3) H 10/24/24 05:13
Estimated Creat Clear 28 ml/min 10/24/24 05:13
eGFR 33.30 10/24/24 05:13
Glucose 76 mg/dl (70-99) 10/24/24 05:13
Hemoglobin A1c 5.3 % (4.0-5.6) 10/24/24 05:13
Calcium 9.7 mg/dl (8.4-10.2) 10/24/24 05:13
Magnesium 2.4 mg/dl (1.6-2.3) H 10/24/24 05:13
Total Bilirubin 1.1 mg/dl (0.2-1.3) 10/23/24 10:11
AST 19 U/L (17-59) 10/23/24 10:11
ALT 15 U/L (0-50) 10/23/24 10:11
Alkaline Phosphatase 132 U/L (38-126) H 10/23/24 10:11
Total Protein 6.0 g/dl (6.3-8.2) L 10/23/24 10:11
Albumin 3.5 g/dl (3.5-5.0) 10/23/24 10:11
Triglycerides 92 mg/dl (10-149) 10/24/24 05:13
Total Cholesterol 141 mg/dl (50-199) 10/24/24 05:13
LDL Cholesterol, Calc 59 mg/dl 10/24/24 05:13
VLDL Cholesterol, Calc 18 mg/dl (0-30) 10/24/24 05:13
HDL Cholesterol 64 mg/dl 10/24/24 05:13
Vitamin B12 695 pg/ml (239-931) 10/23/24 10:11
TSH 2.15 uIU/ml (0.47-4.68) 10/23/24 10:11
Urine Color Yellow 10/23/24 10:11
Urine Clarity Clear (Clear) 10/23/24 10:11
Urine pH 6.0 (5.0-9.0) 10/23/24 10:11
Ur Specific [place] 1.015 (<1.030) 10/23/24 10:11
Urine Ketones Negative (Negative) 10/23/24 10:11
Ur Occult Blood Reflex 1+ (Negative) A 10/23/24 10:11
Urine Nitrite (Reflex) Negative (Negative) 10/23/24 10:11
Urine Bilirubin Negative (Negative) 10/23/24 10:11
Urine Urobilinogen Negative (Neg - 1+) 10/23/24 10:11
Leukocyte Esterase Rfl Negative (Negative) 10/23/24 10:11
Urine RBC 0-2 /HPF (0-2) 10/23/24 10:11
Urine WBC (Reflex) 0-2 /HPF (0-5) 10/23/24 10:11
Ur Squamous Epith Cells 3-5 /LPF (Few) 10/23/24 10:11
Urine Bacteria (Reflex) Few (Negative) A 10/23/24 10:11
Urine Glucose 4+ (Negative) A 10/23/24 10:11
Urine Albumin (Reflex) 2+ (Neg - Trace) A 10/23/24 10:11
SARS-CoV-2 Antigen Negative (Negative) 10/23/24 12:22
��
Diagnostic Results: As per HPI��
MRI brain: Restricted diffusion in the ángela to the right of midline measuring 1.7 x 0.9 cm (series 302, image 72), most compatible with an acute or subacute infarct.
Moderate age-related parenchymal atrophy. Small chronic infarct in the right cerebellar hemisphere. T2/FLAIR hyperintense signal in the white matter of the bilateral cerebral hemispheres, in keeping with the changes of mild to moderate chronic
microangiopathic ischemia. No mass effect, midline shift, or extra axial collection.
�
HEAD CT
IMPRESSION:
No acute intracranial abnormality noted.
Mild atrophy. Stable
Mild periventricular small vessel ischemic disease. Stable
Lumbar Spine X-Ray
IMPRESSION:
Multilevel degenerative disc disease. Progressed at all levels.
Several mild L5 compression fracture versus findings due to degenerative disease.
New mild decreased height of T12 and L4 suggesting compression fractures. Age indeterminate.
Stable grade 2 anterolisthesis of L5 on S1.
Severe bony demineralization.
Mild mid lumbar spine dextroscoliosis. Stable
Echo 10/23/24
Normal left ventricular chamber size. Normal left ventricular systolic
function. Left ventricular ejection fraction is 50-55% by visual assessment.
Normal regional wall motion.
Normal right ventricular size and function.
Mitral annular calcification. Mild to moderate mitral regurgitation. Possible
mild posterior leaflet prolapse.
Aortic sclerosis without stenosis. Mild aortic regurgitation.
�
Assessment:
89-year-old male with slurred speech, legs and facial weakness found to have acute/subacute right lateral ángela infarct
�
Plan�
Acute inpatient rehab with PT/OT/SW/RN/psychology to increase independence with ADLs, improve balance, coordination, endurance, strength, mobility, community reintegration, decreased burden of care on others and family education.��
�
CVA: acute or subacute infarct in the right lateral ángela. Secondary prophylaxis with aspirin And Plavix for 21 days (through 11/13/2024) with continuation of aspirin 81 mg�long-term, statin, and blood pressure control (SBP less than 180 and
diastolic less than 100 to participate with therapy for ischemic stroke). Continue to monitor neurologic status.��
Left nondominant hemiparesis: High risk for falls and sliding out of chair/bed. Safety reinforced.��
- Avoid using affected arm to help lift or pull patient as this will cause trauma to the shoulder.
Dysarthria: speech��
HTN: not on medicine
HLD: Atorvastatin 40 mg
Coronary artery disease�: Aspirin, statin,
Atrial fibrillation:�Plavix, not on rate control medications.����Outpatient cardiology consult����������������������������������������
CKD: creatinine at baseline. (1.9) Farxiga
DM II: Accu-Cheks, insulin sliding scale, Farxiga
Psych: Psychology consult.� Monitor mood, adjust medications as needed.��
Skin: monitor for pressure sores/rashes/lesions.��
FEN: Cholesterol-lowering diet.��
Pain/Lumbar disc displacement, DJD: acetaminophen as needed.��
Bowel: Colace and Senna, PRN bisacodyl.��
Bladder/BPH/history of prostate cancer: Time void, PVRs, PRN straight cath.��Flomax 0.8 at the time
GI Prophylaxis: Pantoprazole��
DVT Prophylaxis: Mechanical and heparin 5000 units SQ every 12 hours
Pulmonary: Incentive spirometry��
Safety: Continue to reinforce assistance with all transfers.��
Code Status:� DNR, confimred with patient and daughter.
Dispo�(date/plan/equipment needs): Home with family care.��
Recommendations summary: Previously independent male with slurred speech, leg weakness and facial weakness, dysarthria found to have acute/subacute infarct of the right lateral ágnela with subsequent ambulatory and ADL dysfunction. He would benefit
from acute inpatient rehabilitation for to increase independence with ADLs, improve balance, coordination, endurance, strength, mobility, community reintegration, decreased burden of care on others and family
Discharge destination: Acute inpatient rehabilitation
CVA: acute or subacute infarct in the right lateral ángela. Secondary prophylaxis with aspirin And Plavix for 21 days (through 11/13/2024) with continuation of aspirin 81 mg�long-term, statin, and blood pressure control (SBP less than 180 and
diastolic less than 100 to participate with therapy for ischemic stroke). Continue to monitor neurologic status.��
Left nondominant hemiparesis: High risk for falls and sliding out of chair/bed. Safety reinforced.��
- Avoid using affected arm to help lift or pull patient as this will cause trauma to the shoulder.
Safety: Continue to reinforce assistance with all transfers.��
Pulmonary: Incentive spirometry��
Attending Statement:
I saw and examined the patient today.� Reviewed care plan with patient, therapy, nursing, and physician psychology assistant.� I agree with the above subjective and physical exam, and plan as documented by BETINA Moran with adjustments made as necessary. A
total of 60 minutes were spent with the patient preparing for the evaluation, obtaining history, performing examination and evaluation, counseling, data review, case management, care coordination, mill order scheduler, and EMR documentation.
Thank you for allowing me to care for your patient. Please contact me with any questions or concerns.
[2024-10-25] MEDS: LIPITOR 40 MG PO (17:08)
[2024-10-25] MEDS: FLOMAX 0.8 MG PO (20:19)
[2024-10-26] VITALS (8 sets, daily range): BP systolic 95–149; BP diastolic 65–95; PULSE 102; O2SAT 97
--- NOTE | 2024-10-26 03:27 | PTCARENOTE ---
Oral care was not performed on patient because they stated that their preference was to brush their teeth in the morning.
[2024-10-26 07:39] LABS: % Basophils 0.5 % (0-2); % Eosinophils 1.2 % (0-6); % Immature Granulocytes 0.7 % (0-0.5); % Neutrophils 79.6 % (42.2-75.2); Absolute Eosinophils 0.1 10^3/uL (0-0.7); Absolute Immature Granulocytes 0.1 10^3/uL (0-0.05); Absolute Lymphocytes 0.9 10^3/uL (1.2-3.4); Absolute Monocytes 0.4 10^3/uL (0.1-0.6); Absolute Neutrophils 5.8 10^3/uL (1.4-6.5); Hematocrit 43.4 % (39.0-52.0); Hemoglobin 14.4 g/dL (13.0-18.0); Mean Corp Hgb Conc. 33.2 g/dL (33.0-37.0); Mean Corpuscular Hgb 33.9 pg (27.0-31.0); Mean Corpuscular Volume 102.1 fL (80.0-94.0); Mean Platelet Volume 9.4 fL (7.4-10.4); Nucleated Red Blood Cells % 0 % (-); Platelet Count 171 10^3/uL (130-400); Red Blood Cell Count 4.25 10^6/uL (4.70-6.10); Red Cell Dist. Width 13.6 % (11.5-14.5); White Blood Cell Count 7.3 10^3/uL (4.8-10.8)
[2024-10-26 07:53] LABS: ALT (SGPT) 16 U/L (0-50); AST (SGOT) 25 U/L (17-59); Albumin 3.5 g/dl (3.5-5.0); Alkaline Phosphatase 123 U/L (38-126); Blood Urea Nitrogen 48 mg/dl (9-20); Calcium 9.8 mg/dl (8.4-10.2); Carbon Dioxide 21 mmol/L (22-30); Chloride 108 mmol/L (98-107); Estimated Creatinine Clearance 25 ml/min; Glucose 97 mg/dl (70-99); Potassium 4.9 mmol/L (3.5-5.1); Sodium 138 mmol/L (135-145); Total Protein 6.1 g/dl (6.3-8.2); eGFR 29.53
[2024-10-26] MEDS: OCUVITE SOFTGEL 1 CAP PO ×2 (08:01→21:39)
[2024-10-26] MEDS: KCL 10 MEQ PO ×2 (08:01→21:39)
[2024-10-26] MEDS: LOW STRENGTH ASPIRIN 81 MG PO (08:01)
[2024-10-26] MEDS: ZYRTEC 5 MG PO (08:01)
[2024-10-26] MEDS: PLAVIX 75 MG PO (08:01)
[2024-10-26] MEDS: FARXIGA 10 MG PO (08:01)
[2024-10-26] MEDS: HEPARIN 5000 UNITS SC ×2 (08:01→21:38)
--- NOTE | 2024-10-26 13:04 | CM ---
Spoke with attending who stated that patient is medically stable for discharge. Placed a call to Judy in admissions at [facility] however had to leave a voice mail message. Attending stated that Rehab MD offered acceptance at facility. Spoke with
No at [facility] who stated that there are no beds at [facility] this weekend and patient is not on their list for a discharge that was already set-up. Placed a call to Patient's daughter, Destinee, to update that bed per facility will not be available until
Monday at earliest.
Plan: Case management will continue to follow and assist with discharge planning. Transfer to [facility] upon bed availability and auth. Will confirm bed availability with admissions.
--- NOTE | 2024-10-26 13:18 | W.PN.HOSP.TC ---
Today's Communication/Plan
-
await bed availability and prior auth for transfer to acute rehab
Assessment / Plan
Assessment / Plan
Mr. Gabriel Cage is a 89 yo man with hx CVA (), atrophic right kidney, CKD IV, essential HTN, Hyperlipidemia, ex-smoker presents to the ER with bilateral lower extremity weakness. On exam he has left sided pronator drift and per daughter mild
expressive aphasia worse than baseline.
Acute Rt lateral KRYSTLE CVA
MRI brain: Restricted diffusion in the krystle to the right of midline measuring 1.7 x 0.9 cm (series 302, image 72), most compatible with an acute or subacute infarct.
Moderate age-related parenchymal atrophy. Small chronic infarct in the right cerebellar hemisphere. T2/FLAIR hyperintense signal in the white matter of the bilateral cerebral hemispheres, in keeping with the changes of mild to moderate chronic
microangiopathic ischemia. No mass effect, midline shift, or extra axial collection.
Vertebrobasilar dolichoectasia again noted. The vascular flow voids at the skull base are otherwise unremarkable, as far as visualized.
The paranasal sinuses and mastoids are clear. Right ocular lens implant.
IMPRESSION:
1.7 x 0.9 cm acute or subacute infarct in the right lateral krystle. Other chronic findings, as detailed above.
Input of Dr. Adair appreciated
agree that pt would be a good candidate for [facility]
reviewed with LORENA [facility] await bed availability and authorization
Lumbar Spine X-Ray
IMPRESSION:
Multilevel degenerative disc disease. Progressed at all levels.
Several mild L5 compression fracture versus findings due to degenerative disease.
New mild decreased height of T12 and L4 suggesting compression fractures. Age indeterminate.
Stable grade 2 anterolisthesis of L5 on S1.
Severe bony demineralization.
Mild mid lumbar spine dextroscoliosis. Stable
Lower Extremity Weakness
Left Sided Pronator Drift
Hx CVA 2018
Worsening felt due to CVA
-Neurology consult appreciated
-FIRE ALARM INSPECTOR asa/statin
-neuro checks
-carotid US: Negative for flow-limiting carotid stenosis. By velocity criteria, any internal carotid artery stenosis present is in the range of 0-49%.
CKD
-creatinine at baseline
-FIRE ALARM INSPECTOR Farxiga
BPH
-FIRE ALARM INSPECTOR Flomax
DVT PPx Hep subQ
Met with dgt, Destinee. Will change to full admit
DAPT for 3 weeks
Cardio consult regarding possible A.Fib, most likely ideal time for cardio eval would be closer to time of dc from acute rehab. Pt has not seen a cardio prior and thus input on risk benefit of DOAC would be appropriate
Video Swallow requested by Speech: 1) continue Regular texture solids, thin liquids
2) meds whole if small (cut if large) in puree or crushed in puree as needed
3) Aspiration precautions: Upright positioning; Supervision to monitor for signs of aspiration and ensure use of safe swallow strategies; Small sips/bites; Slow rate; Overchew solids; Monitor for signs of aspiration; Alternate textures; Extra dry
swallows intermittently throughout meal; D/c oral diet if ANY decline in mental/respiratory status
4) Consider diet downgrade if any concern for aspiration and/or diet tolerance
5) Oral care 3x/day and increased mobility as able/tolerated to reduce risk for nosocomial infection
6) ST to follow to provide continued education regarding aspiration risks/precautions, ensure adequate diet tolerance and modify as appropriate, and provide swallow strength training
DNR - confirmed on admission
Venous Foot Pumps
Anticipated Discharge: 24 - 48 hours
Subjective/Interval History
-
Date of Service: October 26, 2024
Looks better, more alert
Objective Data
-
Labs:
Laboratory Results
10/26/24
06:50
WBC 7.3
Hgb 14.4
Hct 43.4
Plt Count 171
Sodium 138
Potassium 4.9
Chloride 108 H
Carbon Dioxide 21 L
BUN 48 H
Creatinine 2.1 H
Glucose 97
Calcium 9.8
Total Bilirubin 1.0
AST 25
ALT 16
Alkaline Phosphatase 123
Vital Signs:
Vital Signs
Temp Pulse Resp BP Pulse Ox
97.8 F 108 17 132/94 96
10/26/24 11:24 10/26/24 11:24 10/26/24 11:24 10/26/24 11:24 10/26/24 11:24
I&O
10/25/24 10/26/24 10/27/24
06:59 06:59 07:59
Intake Total 540 / 540 780 / 780
Output Total 300 / 300 1125 / 1125
Balance 240 / 240 -345 / -345
Review of Systems
-
History Source: Patient and Family (dgelidia Felipe in room)
Constitutional: Denies Fever
EENT: Reports No Symptoms Reported
Respiratory: Reports No Symptoms
Cardiac: Reports No Symptoms
Abdomen/GI: Reports No Symptoms
Genitourinary: Reports No Symptoms
Musculoskeletal: Reports No Symptoms
Neuro: Denies Headache, Weakness or Numbness
Physical Exam
-
General: Well Developed, Well Nourished and No Apparent Distress
HEENT: Normocephalic, Atraumatic and Moist Mucous Membranes
Respiratory: Clear to Auscultation; Negative Wheezes, Rales or Rhonchi
Cardiac: Regular Rhythm and S1/S2
GI: Soft, Nontender and Nondistended
Musculoskeletal: No Clubbing, No Cyanosis and No Edema
Neuro: Awake, Alert and Oriented
[2024-10-26] MEDS: LIPITOR 40 MG PO (17:09)
[2024-10-26] MEDS: FLOMAX 0.8 MG PO (21:39)
[2024-10-27] VITALS (7 sets, daily range): BP systolic 105–133; BP diastolic 65–86; PULSE 93; O2SAT 95
[2024-10-27] MEDS: FARXIGA 10 MG PO (08:21)
[2024-10-27] MEDS: ZYRTEC 5 MG PO (08:21)
[2024-10-27] MEDS: OCUVITE SOFTGEL 1 CAP PO ×2 (08:22→20:56)
[2024-10-27] MEDS: LOW STRENGTH ASPIRIN 81 MG PO (08:22)
[2024-10-27] MEDS: HEPARIN 5000 UNITS SC ×2 (08:22→20:57)
[2024-10-27] MEDS: KCL 10 MEQ PO ×2 (08:22→20:56)
[2024-10-27] MEDS: PLAVIX 75 MG PO (08:22)
--- NOTE | 2024-10-27 12:07 | W.PN.HOSP.TC ---
Today's Communication/Plan
-
potential dc to [facility] next 24 hrs
Assessment / Plan
Assessment / Plan
Mr. Gabriel Cage is a 89 yo man with hx CVA (02/2018), atrophic right kidney, CKD IV, essential HTN, Hyperlipidemia, ex-smoker presents to the ER with bilateral lower extremity weakness. On exam he has left sided pronator drift and per daughter mild
expressive aphasia worse than baseline.
Acute Rt lateral KRYSTLE CVA
MRI brain: Restricted diffusion in the krystle to the right of midline measuring 1.7 x 0.9 cm (series 302, image 72), most compatible with an acute or subacute infarct.
Moderate age-related parenchymal atrophy. Small chronic infarct in the right cerebellar hemisphere. T2/FLAIR hyperintense signal in the white matter of the bilateral cerebral hemispheres, in keeping with the changes of mild to moderate chronic
microangiopathic ischemia. No mass effect, midline shift, or extra axial collection.
Vertebrobasilar dolichoectasia again noted. The vascular flow voids at the skull base are otherwise unremarkable, as far as visualized.
The paranasal sinuses and mastoids are clear. Right ocular lens implant.
IMPRESSION:
1.7 x 0.9 cm acute or subacute infarct in the right lateral krystle. Other chronic findings, as detailed above.
Input of Dr. Adair appreciated
agree that pt would be a good candidate for [facility]
reviewed with L[facility] await bed availability and authorization
Lumbar Spine X-Ray
IMPRESSION:
Multilevel degenerative disc disease. Progressed at all levels.
Several mild L5 compression fracture versus findings due to degenerative disease.
New mild decreased height of T12 and L4 suggesting compression fractures. Age indeterminate.
Stable grade 2 anterolisthesis of L5 on S1.
Severe bony demineralization.
Mild mid lumbar spine dextroscoliosis. Stable
Currently pt is on Plavix 75/ASA 81 and this is to continue for 3 weeks. Pt will hopefully be going to [facility] tomorrow pending authorization. Will need follow up with cardiology, can be done post dc or while in [facility] to input on whether pt
would benefit from transitioning to DOAC at the end of 3 weeks
Lower Extremity Weakness
Left Sided Pronator Drift
Hx CVA 2017
Worsening felt due to CVA
-Neurology consult appreciated
-FARM REPORTER asa/statin
-neuro checks
-carotid US: Negative for flow-limiting carotid stenosis. By velocity criteria, any internal carotid artery stenosis present is in the range of 0-49%.
CKD
-creatinine at baseline
-FARM REPORTER Farxiga
BPH
-FARM REPORTER Flomax
DVT PPx Hep subQ
Met with Destinee mc. Will change to full admit
DAPT for 3 weeks
Cardio consult regarding possible A.Fib, most likely ideal time for cardio eval would be closer to time of dc from acute rehab. Pt has not seen a cardio prior and thus input on risk benefit of DOAC would be appropriate
Video Swallow requested by Speech: 1) continue Regular texture solids, thin liquids
2) meds whole if small (cut if large) in puree or crushed in puree as needed
3) Aspiration precautions: Upright positioning; Supervision to monitor for signs of aspiration and ensure use of safe swallow strategies; Small sips/bites; Slow rate; Overchew solids; Monitor for signs of aspiration; Alternate textures; Extra dry
swallows intermittently throughout meal; D/c oral diet if ANY decline in mental/respiratory status
4) Consider diet downgrade if any concern for aspiration and/or diet tolerance
5) Oral care 3x/day and increased mobility as able/tolerated to reduce risk for nosocomial infection
6) ST to follow to provide continued education regarding aspiration risks/precautions, ensure adequate diet tolerance and modify as appropriate, and provide swallow strength training
DNR - confirmed on admission
Venous Foot Pumps
Anticipated Discharge: 24 - 48 hours
Subjective/Interval History
-
Date of Service: October 27, 2024
Awake, alert
Objective Data
-
Vital Signs:
Vital Signs
Temp Pulse Resp BP Pulse Ox
98.5 F 95 17 133/65 98
10/27/24 11:00 10/27/24 11:00 10/27/24 11:00 10/27/24 11:00 10/27/24 11:00
I&O
10/26/24 10/27/24 10/28/24
05:59 06:59 06:59
Intake Total
Output Total
Balance
Review of Systems
-
History Source: Patient and Family (dgt Destinee in room)
Constitutional: Denies Fever
EENT: Reports No Symptoms Reported
Respiratory: Reports No Symptoms
Cardiac: Reports No Symptoms
Abdomen/GI: Reports No Symptoms
Genitourinary: Reports No Symptoms
Musculoskeletal: Reports No Symptoms
Neuro: Denies Headache, Weakness or Numbness
Physical Exam
-
General: Well Developed, Well Nourished and No Apparent Distress
HEENT: Normocephalic, Atraumatic and Moist Mucous Membranes
Respiratory: Clear to Auscultation; Negative Wheezes, Rales or Rhonchi
Cardiac: Regular Rhythm and S1/S2
GI: Soft, Nontender and Nondistended
Musculoskeletal: No Clubbing, No Cyanosis and No Edema
Neuro: Awake, Alert and Oriented; Negative No Motor Deficits (gait impairment)
--- NOTE | 2024-10-27 15:03 | CM ---
Received call from Judy in admissions who stated that she can most likely take patient tomorrow, pending auth. She requested updated clinicals. Will send through [facility].
Plan: Case management will continue to follow and assist with discharge planning. Patient will transfer to acute rehab at [facility].
[2024-10-27] MEDS: LIPITOR 40 MG PO (17:48)
[2024-10-27 20:52] LABS: Vitamin B1, Whole Blood 129 nmol/L (70-180)
[2024-10-27] MEDS: FLOMAX 0.8 MG PO (20:57)
[2024-10-28 02:12] LABS: Albumin 3.45 g/dL (3.75-5.01); Alpha 1 Globulin 0.28 g/dL (0.19-0.46); Alpha 2 Globulin 0.64 g/dL (0.48-1.05); SPEP IFE Reflex Not Done; Total Protein-Electrophoresis 5.9 g/dL (6.3-8.2)
[2024-10-28 03:35] VITALS: BP 108/77
[2024-10-28 07:00] VITALS: BP 112/79
[2024-10-28] MEDS: ZYRTEC 5 MG PO (08:09)
[2024-10-28] MEDS: KCL 10 MEQ PO (08:09)
[2024-10-28] MEDS: OCUVITE SOFTGEL 1 CAP PO (08:09)
[2024-10-28] MEDS: LOW STRENGTH ASPIRIN 81 MG PO (08:09)
[2024-10-28] MEDS: PLAVIX 75 MG PO (08:09)
[2024-10-28] MEDS: FARXIGA 10 MG PO (08:10)
[2024-10-28] MEDS: HEPARIN 5000 UNITS SC (08:10)
[2024-10-28 09:06] VITALS: BP 113/78; BP 121/82; PULSE 80; O2SAT 97
[2024-10-28 11:00] VITALS: BP 110/57
[2024-10-28 12:40] VITALS: BP 128/67; O2SAT 96
--- NOTE | 2024-10-28 12:42 | CM ---
Addendum entered by Cici Hernandez RN 10/28/24 13:33:
PT OT evals done .
Called [facility] [phone] spoke with Fay morales give Obtained auth from 10/28/24 to 11/04/24 Auth # [id number]. NRD call [phone] . , RN , [facility] notified of above .
Spoke with elidia Felipe she was happy auth was obtained for [facility].
Reviewed IMM with t she agrees with dc to acute rehab.
PLAN to [facility]
Original Note:
Spoke with Judy from [facility] pt is appropriate for acute rehab ,
Dr [facility]air [facility]
PT eval done yesterday and today.They agree with acute rehab.
Requested for OT to see .
Will need OT update for auth from [facility] [phone].
[facility]
report [phone]
fax [phone]
PLAN TO [facility] AFTER AUTH OBTAINED
--- NOTE | 2024-10-28 14:31 | W.PN.HOSP.TC ---
Addendum entered and electronically signed by Davon Garrido MD 10/28/24 17:21:
[id number]
Original Note:
Today's Communication/Plan
-
DAPT x 21 days, Statin
switch to plavix thereafter
F/u Neuro, Cards (holter) and PCP outpt
Assessment / Plan
Assessment / Plan
Mr. Gabriel Cage is a 89 yo man with hx CVA (02/2018), atrophic right kidney, CKD IV, essential HTN, Hyperlipidemia, ex-smoker presents to the ER with bilateral lower extremity weakness. On exam he has left sided pronator drift and per daughter mild
expressive aphasia worse than baseline.
Acute Rt lateral KRYSTLE CVA
MRI brain: Restricted diffusion in the krystle to the right of midline measuring 1.7 x 0.9 cm (series 302, image 72), most compatible with an acute or subacute infarct.
Moderate age-related parenchymal atrophy. Small chronic infarct in the right cerebellar hemisphere. T2/FLAIR hyperintense signal in the white matter of the bilateral cerebral hemispheres, in keeping with the changes of mild to moderate chronic
microangiopathic ischemia. No mass effect, midline shift, or extra axial collection.
Vertebrobasilar dolichoectasia again noted. The vascular flow voids at the skull base are otherwise unremarkable, as far as visualized.
The paranasal sinuses and mastoids are clear. Right ocular lens implant.
IMPRESSION:
1.7 x 0.9 cm acute or subacute infarct in the right lateral krystle. Other chronic findings, as detailed above.
-DAPT x 21 days, then plavix alone
-F/u Neuro outpt
-F/u cards for holter outpt
-cont statin
Lower Extremity Weakness
Left Sided Pronator Drift
Hx CVA 2017
Worsening felt due to CVA
-Neurology consult appreciated
-AIR CARRIER MAINTENANCE INSPECTOR asa/statin
-neuro checks
-carotid US: Negative for flow-limiting carotid stenosis. By velocity criteria, any internal carotid artery stenosis present is in the range of 0-49%.
-see plan above
CKD
-creatinine at baseline
-AIR CARRIER MAINTENANCE INSPECTOR Farxiga
-f/u bmp outpt
BPH
-AIR CARRIER MAINTENANCE INSPECTOR Flomax
#Several mild L5 compression fracture versus findings due to degenerative disease.
New mild decreased height of T12 and L4 suggesting compression fractures. Age indeterminate.
Stable grade 2 anterolisthesis of L5 on S1.
Severe bony demineralization.
Mild mid lumbar spine dextroscoliosis. Stable
-PT/OT outpt
DVT PPx Hep subQ
Met with Destinee mc
DAPT for 3 weeks
DNR - confirmed on admission
Venous Foot Pumps
More than 30 minutes spent in discharge including
Final examination of the patient
Summarizing hospital stay
Instructions for continuing care to all relevant caregivers
Preparation of discharge records, prescriptions, and referral forms
Total time spent (36 in minutes):
Anticipated Discharge: Today
Subjective/Interval History
-
Date of Service: October 28, 2024
No acute events overnight
Objective Data
-
Vital Signs:
Vital Signs
Temp Pulse Resp BP Pulse Ox
97.3 F 65 16 110/57 96
10/28/24 11:00 10/28/24 11:00 10/28/24 11:00 10/28/24 11:00 10/28/24 11:00
I&O
10/27/24 10/28/24 10/29/24
06:59 06:59 06:59
Intake Total 720 / 720
Output Total 525 / 525
Balance 195 / 195
Review of Systems
-
History Source: Patient
All other systems: Not reviewed unless documented
Data Reviewed
-
Total Time Spent with Patient (in minutes): 45
MRI: Report Reviewed by me
Labs: Labs Reviewed by me
--- NOTE | 2024-10-28 14:36 | W.DS.TRANS ---
DC Summary - [facility]
-
Discharge Instructions:
Discharge Diagnosis/Procedures Acute Rt lateral KRYSTLE CVA
Diet Low Fat,Low Cholesterol,Low Sodium
Activity As tolerated
Blood Work cbc and bmp in 3-5 days
Instructions:
Stand-Alone Forms:
Changes to Home Medications: Yes
Discharge Medications:
DC Medications w/original date entered in [employer]
glucosamine [id number] atul 1,500 mg-400 unit-100 mg tablet (Osteo Bi-Flex (5-Loxin)) 2 ea PO DAILY Supplement 09/07/18
atorvastatin 40 mg tablet 40 mg PO QPM High cholesterol 04/22/22
tamsulosin 0.4 mg capsule 0.8 mg PO HS Urinary issue 04/22/22
vit C 250 mg-vit E 90 mg-zinc 40 mg-copper 1 [id number] capsule (PreserVision AREDS-2) 1 tab PO BID Supplement 04/22/22
acetaminophen 325 mg tablet (Tylenol) 650 mg PO Q4HPRN PRN mild pain 10/21/23
aspirin 81 mg chewable tablet 81 mg PO DAILY #30 tabs 10/27/23
cetirizine 10 mg tablet (Allergy Relief (cetirizine)) 10 mg PO DAILY Allergies 10/23/24
dapagliflozin propanediol 10 mg tablet (Farxiga) 10 mg PO DAILY diabetes/heart 10/23/24
leuprolide acetate (6 month) 45 mg intramuscular syringe kit (Lupron Depot) 45 mg IM [id number] 10/23/24
potassium chloride 10 mEq tablet,extended release 10 meq PO BID Electrolyte Repletion 10/23/24
clopidogrel 75 mg tablet 75 mg PO DAILY #0 tabs 10/28/24
Home Medication Changes
clopidogrel 75 mg tablet 75 mg PO DAILY #0 tabs 10/28/24
Pending Results: No
[2024-10-28 15:00] VITALS: BP 116/79
== END 2024-10-28 17:09 | DRG 64 ==
LOC: 3 WEST ACU 14:15
PROVIDERS: Internal Medicine; ADMITTING PHYSICIAN Student in an Organized Health Care Education/Training Program; ATTENDING PHYSICIAN Internal Medicine; CONSULT PHYSICIAN Physical Medicine & Rehabilitation; CONSULT PHYSICIAN Psychiatry & Neurology Neurology; EMERGENCY PHYSICIAN Emergency Medicine; FAMILY PHYSICIAN Internal Medicine
DX: I63.81 Other cerebral infarction due to occlusion or stenosis of small artery (principal); G93.41 Metabolic encephalopathy; N18.4 Chronic kidney disease, stage 4 (severe); Q60.0 Renal agenesis, unilateral; M48.56XA Collapsed vertebra, not elsewhere classified, lumbar region, initial encounter for fracture; G81.94 Hemiplegia, unspecified affecting left nondominant side; Z66 Do not resuscitate; E11.22 Type 2 diabetes mellitus with diabetic chronic kidney disease; E78.5 Hyperlipidemia, unspecified; N40.0 Benign prostatic hyperplasia without lower urinary tract symptoms; R29.810 Facial weakness; R47.81 Slurred speech; I48.91 Unspecified atrial fibrillation; H40.9 Unspecified glaucoma; I25.10 Atherosclerotic heart disease of native coronary artery without angina pectoris; I12.9 Hypertensive chronic kidney disease with stage 1 through stage 4 chronic kidney disease, or unspecified chronic kidney disease; Z87.891 Personal history of nicotine dependence; Z86.73 Personal history of transient ischemic attack (TIA), and cerebral infarction without residual deficits; Z85.46 Personal history of malignant neoplasm of prostate; Z79.82 Long term (current) use of aspirin; Z79.84 Long term (current) use of oral hypoglycemic drugs; Z79.899 Other long term (current) drug therapy; Z11.52 Encounter for screening for COVID-19
CPT/HCPCS: 70450; 70551; 72110; 74230; 80048; 80053; 80061; 81003; 81015; 82607; 83036; 83735; 84155; 84165; 84425; 84443; 85025; 85027; 87502; 87811; 92523; 92526; 92610; 92611; 93005; 93306; 93880; 97112; 97116; 97167; 97530; 97535; 99285

== ENCOUNTER → 2024-11-15 12:17 | Outpatient (REF) | payer OTHER, SELFPAY ==
[2024-11-15 12:48] LABS: Hematocrit 37.1 % (39.0-52.0); Hemoglobin 12.3 g/dL (13.0-18.0); Mean Corp Hgb Conc. 33.2 g/dL (33.0-37.0); Mean Corpuscular Hgb 34.9 pg (27.0-31.0); Mean Corpuscular Volume 105.4 fL (80.0-94.0); Mean Platelet Volume 9.9 fL (7.4-10.4); Platelet Count 165 10^3/uL (130-400); Red Blood Cell Count 3.52 10^6/uL (4.70-6.10)
[2024-11-15 14:26] LABS: ALT (SGPT) 59 U/L (0-50); AST (SGOT) 23 U/L (17-59); Alkaline Phosphatase 157 U/L (38-126); Blood Urea Nitrogen 45 mg/dl (9-20); Calcium 9.9 mg/dl (8.4-10.2); Carbon Dioxide 24 mmol/L (22-30); Chloride 112 mmol/L (98-107); Glucose 95 mg/dl (70-99); Potassium 4.5 mmol/L (3.5-5.1); Sodium 142 mmol/L (135-145); Total Bilirubin 0.8 mg/dl (0.2-1.3); Total Protein 5.2 g/dl (6.3-8.2); eGFR 31.31
== END ==
LOC: OLABP 12:17
PROVIDERS: ATTENDING PHYSICIAN Family Medicine
DX: I69.354 Hemiplegia and hemiparesis following cerebral infarction affecting left non-dominant side (principal); I63.9 Cerebral infarction, unspecified; N18.4 Chronic kidney disease, stage 4 (severe); E78.5 Hyperlipidemia, unspecified; U07.1 COVID-19
CPT/HCPCS: 80053; 85027

== ENCOUNTER → 2024-11-19 11:12 | Outpatient (REF) | payer OTHER, SELFPAY ==
[2024-11-19 12:35] LABS: % Basophils 0.5 % (0-2); % Eosinophils 5.3 % (0-6); % Immature Granulocytes 0.7 % (0-0.5); % Lymphocytes 20.9 % (20.5-51.1); % Monocytes 9.5 % (1.7-9.3); % Neutrophils 63.1 % (42.2-75.2); Absolute Eosinophils 0.3 10^3/uL (0-0.7); Absolute Lymphocytes 1.2 10^3/uL (1.2-3.4); Absolute Monocytes 0.6 10^3/uL (0.1-0.6); Absolute Neutrophils 3.7 10^3/uL (1.4-6.5); Hematocrit 35.6 % (39.0-52.0); Hemoglobin 11.9 g/dL (13.0-18.0); Mean Corp Hgb Conc. 33.4 g/dL (33.0-37.0); Mean Corpuscular Hgb 34.6 pg (27.0-31.0); Mean Corpuscular Volume 103.5 fL (80.0-94.0); Mean Platelet Volume 10.1 fL (7.4-10.4); Nucleated Red Blood Cells % 0 % (-); Platelet Count 186 10^3/uL (130-400); Red Blood Cell Count 3.44 10^6/uL (4.70-6.10); Red Cell Dist. Width 13.7 % (11.5-14.5); White Blood Cell Count 5.9 10^3/uL (4.8-10.8)
[2024-11-19 13:33] LABS: ALT (SGPT) 34 U/L (0-50); AST (SGOT) 22 U/L (17-59); Alkaline Phosphatase 128 U/L (38-126); Blood Urea Nitrogen 48 mg/dl (9-20); Calcium 9.5 mg/dl (8.4-10.2); Carbon Dioxide 23 mmol/L (22-30); Chloride 112 mmol/L (98-107); Glucose 90 mg/dl (70-99); Potassium 4.8 mmol/L (3.5-5.1); Sodium 141 mmol/L (135-145); Total Bilirubin 0.9 mg/dl (0.2-1.3); Total Protein 5.3 g/dl (6.3-8.2); eGFR 29.53
== END ==
LOC: OLABP 11:12
PROVIDERS: ATTENDING PHYSICIAN Family Medicine
DX: I69.354 Hemiplegia and hemiparesis following cerebral infarction affecting left non-dominant side (principal); I63.9 Cerebral infarction, unspecified; I10 Essential (primary) hypertension; N18.4 Chronic kidney disease, stage 4 (severe); E78.5 Hyperlipidemia, unspecified; U07.1 COVID-19
CPT/HCPCS: 36415; 80053; 85025

== ENCOUNTER → 2024-11-22 10:55 | Outpatient (REF) | payer OTHER, SELFPAY ==
[2024-11-22 11:44] LABS: Blood Urea Nitrogen 40 mg/dl (9-20); Calcium 9.4 mg/dl (8.4-10.2); Carbon Dioxide 23 mmol/L (22-30); Chloride 111 mmol/L (98-107); Glucose 90 mg/dl (70-99); Potassium 4.2 mmol/L (3.5-5.1); Sodium 142 mmol/L (135-145)
== END ==
LOC: OLABP 10:55
PROVIDERS: ATTENDING PHYSICIAN Family Medicine
DX: I69.354 Hemiplegia and hemiparesis following cerebral infarction affecting left non-dominant side (principal); I63.9 Cerebral infarction, unspecified; I10 Essential (primary) hypertension; N18.4 Chronic kidney disease, stage 4 (severe); E78.5 Hyperlipidemia, unspecified; U07.1 COVID-19
CPT/HCPCS: 36415; 80048

== ENCOUNTER → 2024-11-26 12:50 | Outpatient (REF) | payer OTHER, SELFPAY ==
[2024-11-26 13:45] LABS: Blood Urea Nitrogen 33 mg/dl (9-20); Calcium 9.5 mg/dl (8.4-10.2); Carbon Dioxide 24 mmol/L (22-30); Chloride 110 mmol/L (98-107); Glucose 94 mg/dl (70-99); Potassium 4.4 mmol/L (3.5-5.1); Sodium 139 mmol/L (135-145)
== END ==
LOC: OLABP 12:50
PROVIDERS: ATTENDING PHYSICIAN Family Medicine
DX: I69.354 Hemiplegia and hemiparesis following cerebral infarction affecting left non-dominant side (principal); I63.9 Cerebral infarction, unspecified; I10 Essential (primary) hypertension; N18.4 Chronic kidney disease, stage 4 (severe); E78.5 Hyperlipidemia, unspecified; U07.1 COVID-19
CPT/HCPCS: 36415; 80048

== ENCOUNTER → 2025-01-20 09:23 | Outpatient (REF) | payer OTHER, SELFPAY | LOC: HWRAD 09:23 | PROVIDERS: ATTENDING PHYSICIAN Specialist; FAMILY PHYSICIAN Internal Medicine; REFERRING PHYSICIAN Specialist | DX: N20.0 Calculus of kidney (principal) | CPT/HCPCS: 76775 ==